=== PATIENT | female | born 1960 | race Caucasian/White ===

== ENCOUNTER 2017-07-05 23:57 | Inpatient (IN) | payer MEDICARE, OTHER ==
[2017-07-06] MEDS ORDERED: SODIUM CHLORIDE 0.9% 2,000 ML IV STA (00:17)
[2017-07-06] MEDS ORDERED: ONDANSETRON 4 MG/2 ML VIAL IVP STA (00:17)
--- NOTE | 2017-07-06 00:19 | ED ---
Nausea/Vomiting/Diarrhea HPI - General Chief complaint: Nausea/Vomiting/Diarrhea Stated complaint: Stomach Pain/Vomiting Time Seen by Provider: 07/06/17 00:09 Source: patient, RN notes reviewed Mode of arrival: ambulatory Limitations: no limitations - History of Present Illness Initial comments: This a 56-year-old female presents emergency Department chief complaint of nausea vomiting. Patient states started 24 hours ago. Patient states she cannot stop vomiting. She states she did have some lower abdominal pain but states it is resolved. Patient denies any dysuria, hematuria, diarrhea, constipation, fever, chills, back pain, chest pain or shortness breath. She states that she is having bilious vomiting at this time. She states her grandkids were sicker on it. Patient denies any congestion no cough, sore throat, ear pain. Patient has no headache no dizziness. - Related Data Home Medications Medication Instructions Recorded Confirmed Dextroamphetamine/Amphetamine 30 mg PO TID 06/22/15 06/22/15 [Adderall] Hydrocodone/Acetaminophen [[place] 1 each PO Q4H PRN 06/22/15 06/22/15 10-325] Allergies Allergy/AdvReac Type Severity Reaction Status Date / Time diazepam [From Valium] Allergy Unknown Verified 06/22/15 17:28 Review of Systems ROS Statement: Those systems with pertinent positive or pertinent negative responses have been documented in the HPI. ROS Other: All systems not noted in ROS Statement are negative. Past Medical History Past Medical History: No Reported History Additional Past Medical History / Comment(s): blood clot in shoulder History of Any Multi-Drug Resistant Organisms: None Reported Past Surgical History: No Surgical Hx Reported Past Psychological History: No Psychological Hx Reported Smoking Status: Current every day smoker Past Alcohol Use History: None Reported Past Drug Use History: None Reported General Exam Limitations: no limitations General appearance: alert, in no apparent distress Head exam: Present: atraumatic, normocephalic, normal inspection ENT exam: Present: mucous membranes dry Neck exam: Present: normal inspection. Absent: tenderness, meningismus, lymphadenopathy Respiratory exam: Present: normal lung sounds bilaterally. Absent: respiratory distress, wheezes, rales, rhonchi, stridor Cardiovascular Exam: Present: regular rate, normal rhythm, normal heart sounds. Absent: systolic murmur, diastolic murmur, rubs, gallop, clicks GI/Abdominal exam: Present: soft, tenderness (Moderate right inguinal tenderness ), normal bowel sounds, hernia. Absent: distended, guarding, rebound, rigid Back exam: Absent: CVA tenderness (R), CVA tenderness (L) Neurological exam: Present: alert, oriented X3, CN II-XII intact Skin exam: Present: warm, dry, intact, normal color. Absent: rash Course Vital Signs 07/06/17 00:04 Temperature 97.7 F Pulse Rate 82 Respiratory 18 Rate Blood Pressure 115/64 O2 Sat by Pulse 98 Oximetry Medical Decision Making - Lab Data Result diagrams: 07/06/17 00:30 07/06/17 00:30 Lab Results 07/06/17 07/06/17 07/06/17 Range/Units 00:30 00:30 00:30 WBC 16.9 H (3.8-10.6) k/uL RBC 5.64 H (3.80-5.40) m/uL Hgb 17.4 H (11.4-16.0) gm/dL Hct 51.3 H (34.0-46.0) % MCV 90.9 (80.0-100.0) fL MCH 30.9 (25.0-35.0) pg MCHC 34.0 (31.0-37.0) g/dL RDW 13.7 (11.5-15.5) % Plt Count 271 (150-450) k/uL Neutrophils % 88 % Lymphocytes % 6 % Monocytes % 4 % Eosinophils % 1 % Basophils % 1 % Neutrophils # 15.0 H (1.3-7.7) k/uL Lymphocytes # 1.1 (1.0-4.8) k/uL Monocytes # 0.6 (0-1.0) k/uL Eosinophils # 0.1 (0-0.7) k/uL Basophils # 0.1 (0-0.2) k/uL Sodium 139 (137-145) mmol/L Potassium 4.1 (3.5-5.1) mmol/L Chloride 98 (98-107) mmol/L Carbon Dioxide 29 (22-30) mmol/L Anion Gap 12 mmol/L BUN 22 H (7-17) mg/dL Creatinine 0.80 (0.52-1.04) mg/dL Est GFR (MDRD) Af Amer >60 (>60 ml/min/1.73 sqM) Est GFR (MDRD) Non-Af >60 (>60 ml/min/1.73 sqM) Glucose 156 H (74-99) mg/dL Calcium 10.6 H (8.4-10.2) mg/dL Total Bilirubin 0.7 (0.2-1.3) mg/dL AST 25 (14-36) U/L ALT 42 (9-52) U/L Alkaline Phosphatase 104 (38-126) U/L Total Protein 8.3 H (6.3-8.2) g/dL Albumin 4.9 (3.5-5.0) g/dL Amylase 41 (30-110) U/L Lipase 31 (23-300) U/L Urine Color Yellow Urine Appearance Cloudy H (Clear) Urine pH 5.5 (5.0-8.0) Ur Specific [place] 1.029 (1.001-1.035) Urine Protein 2+ H (Negative) Urine Glucose (UA) Negative (Negative) Urine Ketones Trace H (Negative) Urine Blood Moderate H (Negative) Urine Nitrite Negative (Negative) Urine Bilirubin 1+ H (Negative) Urine Urobilinogen 2.0 (<2.0) mg/dL Ur Leukocyte Esterase Trace H (Negative) Urine RBC 17 H (0-5) /hpf Urine WBC 6 H (0-5) /hpf Ur Squamous Epith Cells 26 H (0-4) /hpf Urine Bacteria Occasional H (None) /hpf Urine Mucus Few H (None) /hpf Disposition Clinical Impression: Right inguinal hernia, Small bowel obstruction Disposition: ADMITTED IP TO THIS [facility] Condition: Fair Referrals: Bob Alejo MD [Primary Care Provider] - 1-2 days
[2017-07-06 00:39] LABS: Basophils # (A) 0.1 k/uL (0-0.2); Basophils % (A) 1 %; CHCM 35.3; Eosinophils # (A) 0.1 k/uL (0-0.7); Eosinophils % (A) 1 %; HCT 51.3 % (34.0-46.0); HDW 2.31; HGB 17.4 gm/dL (11.4-16.0); Luc % (Auto) 1; Lymphocytes # (A) 1.1 k/uL (1.0-4.8); Lymphocytes % (A) 6 %; MCH 30.9 pg (25.0-35.0); MCV 90.9 fL (80.0-100.0); Mean Platelet Volume 8.8; Monocytes # (A) 0.6 k/uL (0-1.0); Monocytes % (A) 4 %; Neutrophils % (A) 88 %; RBC 5.64 m/uL (3.80-5.40); RDW 13.7 % (11.5-15.5); WBC 16.9 k/uL (3.8-10.6); WBC (Perox) 16.52
[2017-07-06 00:49] LABS: ALT 42 U/L (9-52); AST 25 U/L (14-36); Alkaline Phosphatase 104 U/L (38-126); Amylase 41 U/L (30-110); Anion Gap 12 mmol/L; Blood Urea Nitrogen 22 mg/dL (7-17); Calcium 10.6 mg/dL (8.4-10.2); Carbon Dioxide 29 mmol/L (22-30); Chloride 98 mmol/L (98-107); Glucose 156 mg/dL (74-99); Non-African American GFR(MDRD) >60 (>60 ml/min/1.73 sqM); Potassium 4.1 mmol/L (3.5-5.1); Sodium 139 mmol/L (137-145); Total Bilirubin 0.7 mg/dL (0.2-1.3); Total Protein 8.3 g/dL (6.3-8.2)
[2017-07-06] MEDS ORDERED: RX INFO: IV CONTRAST WAS GIVEN 1 EACH MISC MISCELLANE PRN (00:49)
[2017-07-06 00:51] LABS: Appearance,Urine Cloudy (Clear); Bacteria,Urine Occasional /hpf; Bilirubin,Urine 1+ (Negative); Glucose,Urine (UA) Negative (Negative); Ketones,Urine Trace (Negative); Leukocyte Esterase,Urine Trace (Negative); Mucus,Urine Few /hpf; Nitrite,Urine Negative (Negative); PH, Urine 5.5 (5.0-8.0); Particle Count 16900; Protein,Urine 2+ (Negative); RBC,Urine 17 /hpf (0-5); Specific Gravity,Urine 1.029 (1.001-1.035); Squamous Epithelial Cell,Urine 26 /hpf (0-4); UA Billing (MACRO vs. MICRO) MICRO; WBC,Urine 6 /hpf (0-5)
--- NOTE | 2017-07-06 01:16 | XR ---
EXAM: XR Abdomen Complete, 2 or More Views CLINICAL HISTORY: Pain TECHNIQUE: Frontal view of the abdomen/pelvis with upright view of the abdomen. COMPARISON: No relevant prior studies available. FINDINGS: Intraperitoneal space: No pneumatosis or free air. Gastrointestinal tract: There are air-fluid levels noted within the small bowel with a prominent small bowel loop noted within the left upper quadrant measuring up to 3.8 cm. Findings are concerning for either small bowel obstruction or ileus. Bones/joints: Unremarkable. IMPRESSION: There are air-fluid levels noted within the small bowel with a prominent small bowel loop noted within the left upper quadrant measuring up to 3.8 cm. Findings are concerning for either small bowel obstruction or ileus.
--- NOTE | 2017-07-06 01:39 | CT ---
EXAM: CT Abdomen and Pelvis With Intravenous Contrast CLINICAL HISTORY: Pain, vomiting and leukocytosis TECHNIQUE: Axial computed tomography images of the abdomen and pelvis with intravenous contrast. CTDI is 6.3, 6.2 mGy and DLP is 465.80 mGy-cm. This CT exam was performed using one or more of the following dose reduction techniques: automated exposure control, adjustment of the mA and/or kV according to patient size, and/or use of iterative reconstruction technique. COMPARISON: No relevant prior studies available. FINDINGS: Lower thorax: Tiny subpleural cysts are noted within the dependent right lower lobe, which is nonspecific. ABDOMEN: Liver: Unremarkable. Gallbladder and bile ducts: Unremarkable. Pancreas: Unremarkable. Spleen: Unremarkable. Adrenals: Unremarkable. Kidneys and ureters: Unremarkable. Stomach and bowel: Dilated loops of small bowel with transition point seen within a right inguinal canal hernia (3-74). Noninflamed colonic diverticulosis. Appendix: The appendix is unremarkable. PELVIS: Bladder: Unremarkable. Reproductive: Unremarkable as visualized. ABDOMEN and PELVIS: Intraperitoneal space: Small amount of free fluid within the pelvis. Bones/joints: Degenerative changes of the osseous structures. Anterolisthesis of L4 on L5, likely degenerative. No acute fracture. No dislocation. Soft tissues: See above. Vasculature: Vascular calcifications. Lymph nodes: Unremarkable. IMPRESSION: Dilated loops of small bowel with transition point seen within a right inguinal canal hernia (3-74). Findings are concerning for small bowel obstruction. No pneumatosis or free air.
[2017-07-06] MEDS ORDERED: NALOXONE 0.4 MG/ML 1 ML VIAL IV PRN (01:46)
[2017-07-06] MEDS ORDERED: HYDROmorphone 1 MG/ML 1 ML SYRINGE IVP STA (01:47)
[2017-07-06] MEDS: HYDROmorphone 1 MG/ML 1 ML SYRINGE IV PRN ×6 (03:16→23:00)
[2017-07-06] MEDS: SODIUM CHLORIDE 0.9% 1,000 ML IV SCH ×3 (05:14→20:13)
--- NOTE | 2017-07-06 07:24 | P.GSHP ---
History of Present Illness H&P Date: 07/06/17 Chief Complaint: Nausea and vomting for 36 hours Patient is a 56 year old female with a 36 hour history of nausea and vomiting. It started suddenly and has not stopped till presentation. SHe had previosuly noted a swelling in her groin as well that occasionally filled up and reduced int he past but is now quite tender. SHe has had associated crampy abominal pain that has resolved. No flatus or bowel movments. No history of abdominal surgery in the past - Constitutional Constitutional: Reports anorexia, Reports lethargy, Reports malaise - EENT Eyes: denies as per HPI - Cardiovascular Cardiovascular: Denies chest pain, Denies claudication, Denies decreased exercise tolerance - Respiratory Comment: known smoker Respiratory: Reports cough - Gastrointestinal Gastrointestinal: Reports as per HPI - Genitourinary (Female) Genitourinary: Denies dysuria, Denies hematuria - Musculoskeletal Musculoskeletal: Denies myalgias - Integumentary Integumentary: Denies pruritus, Denies rash - Endocrine Endocrine: Denies fatigue, Denies weight change Past Medical History Past Medical History: No Reported History Additional Past Medical History / Comment(s): blood clot in shoulder, adverse effect with valium caused seizures History of Any Multi-Drug Resistant Organisms: None Reported Past Surgical History: No Surgical Hx Reported Past Anesthesia/Blood Transfusion Reactions: No Reported Reaction Past Psychological History: No Psychological Hx Reported Smoking Status: Current every day smoker Past Alcohol Use History: None Reported Past Drug Use History: None Reported - Past Family History Father Family Medical History: No Reported History Mother Family Medical History: No Reported History Medications and Allergies Home Medications Medication Instructions Recorded Confirmed Type Dextroamphetamine/Amphetamine 30 mg PO TID 06/22/15 06/22/15 History [Adderall] Hydrocodone/Acetaminophen [[place] 1 each PO Q4H PRN 06/22/15 06/22/15 History 10-325] Allergies Allergy/AdvReac Type Severity Reaction Status Date / Time diazepam [From Valium] Allergy Unknown Verified 07/06/17 03:58 Surgical - Exam Vital Signs Temp Pulse Resp BP Pulse Ox 97.7 F 82 18 115/64 98 07/06/17 00:04 07/06/17 00:04 07/06/17 00:04 07/06/17 00:04 07/06/17 00:04 - General moderate distress - Eyes no icteric, no deviation - ENT normal pinna, normal nares - Respiratory normal expansion - Cardiovascular Rhythm: regular - Abdomen tender right inguinla region. Area was marked. , no peritonitis Abdomen: soft, non tender, no surgical scars, no wound - Integumentary no rash, no abnormal pigmentation - Neurologic no disoriented, no combative - Psychiatric oriented to time, oriented to person, oriented to place, speech is normal, memory intact Results - Labs 07/06/17 00:30 07/06/17 00:30 Abnormal Lab Results - Last 24 Hours (Table) 07/06/17 07/06/17 07/06/17 Range/Units 00:30 00:30 00:30 WBC 16.9 H (3.8-10.6) k/uL RBC 5.64 H (3.80-5.40) m/uL Hgb 17.4 H (11.4-16.0) gm/dL Hct 51.3 H (34.0-46.0) % Neutrophils # 15.0 H (1.3-7.7) k/uL BUN 22 H (7-17) mg/dL Glucose 156 H (74-99) mg/dL Calcium 10.6 H (8.4-10.2) mg/dL Total Protein 8.3 H (6.3-8.2) g/dL Urine Appearance Cloudy H (Clear) Urine Protein 2+ H (Negative) Urine Ketones Trace H (Negative) Urine Blood Moderate H (Negative) Urine Bilirubin 1+ H (Negative) Ur Leukocyte Esterase Trace H (Negative) Urine RBC 17 H (0-5) /hpf Urine WBC 6 H (0-5) /hpf Ur Squamous Epith Cells 26 H (0-4) /hpf Urine Bacteria Occasional H (None) /hpf Urine Mucus Few H (None) /hpf Diabetes panel 07/06/17 Range/Units 00:30 Sodium 139 (137-145) mmol/L Potassium 4.1 (3.5-5.1) mmol/L Chloride 98 (98-107) mmol/L Carbon Dioxide 29 (22-30) mmol/L BUN 22 H (7-17) mg/dL Creatinine 0.80 (0.52-1.04) mg/dL Glucose 156 H (74-99) mg/dL Calcium 10.6 H (8.4-10.2) mg/dL AST 25 (14-36) U/L ALT 42 (9-52) U/L Alkaline Phosphatase 104 (38-126) U/L Total Protein 8.3 H (6.3-8.2) g/dL Albumin 4.9 (3.5-5.0) g/dL Calcium panel 07/06/17 Range/Units 00:30 Calcium 10.6 H (8.4-10.2) mg/dL Albumin 4.9 (3.5-5.0) g/dL Pituitary panel 07/06/17 Range/Units 00:30 Sodium 139 (137-145) mmol/L Potassium 4.1 (3.5-5.1) mmol/L Chloride 98 (98-107) mmol/L Carbon Dioxide 29 (22-30) mmol/L BUN 22 H (7-17) mg/dL Creatinine 0.80 (0.52-1.04) mg/dL Glucose 156 H (74-99) mg/dL Calcium 10.6 H (8.4-10.2) mg/dL Adrenal panel 07/06/17 Range/Units 00:30 Sodium 139 (137-145) mmol/L Potassium 4.1 (3.5-5.1) mmol/L Chloride 98 (98-107) mmol/L Carbon Dioxide 29 (22-30) mmol/L BUN 22 H (7-17) mg/dL Creatinine 0.80 (0.52-1.04) mg/dL Glucose 156 H (74-99) mg/dL Calcium 10.6 H (8.4-10.2) mg/dL Total Bilirubin 0.7 (0.2-1.3) mg/dL AST 25 (14-36) U/L ALT 42 (9-52) U/L Alkaline Phosphatase 104 (38-126) U/L Total Protein 8.3 H (6.3-8.2) g/dL Albumin 4.9 (3.5-5.0) g/dL - Imaging CT scan - abdomen: report reviewed, image reviewed CT scan - pelvis: report reviewed, image reviewed (obstruction from the inguinla hernia) Assessment and Plan (1) Tobacco abuse Status: Acute (2) Right inguinal hernia Status: Acute (3) Small bowel obstruction Status: Acute Plan: Patient has higher than average risk due to smoking . I have explained that we need to do a groin exploration and possible diagnositc laparoscopy and possibel laparotomy with bowel resection possible ostomy creation. I have explained the aster and the oskar. she understands and is willing to proceed.
[2017-07-06] MEDS ORDERED: IV FLUID CONTINUATION 300 ML IV ONE (08:35)
[2017-07-06] MEDS: ONDANSETRON 4 MG/2 ML VIAL IVP PRN (09:02)
[2017-07-06] MEDS ORDERED: HEPARIN SODIUM,PORCINE 5,000 UNIT/ML 1 ML VIAL SQ ONE (09:38)
[2017-07-06] MEDS ORDERED: NEOSTIGMINE 1 MG/ML 10 ML VIAL ONE (09:40)
[2017-07-06] MEDS ORDERED: VECURONIUM 10 MG VIAL IV ONE (09:40)
[2017-07-06] MEDS ORDERED: PROPOFOL 10 MG/ML 20 ML VIAL IV ONE (09:40)
[2017-07-06] MEDS ORDERED: GLYCOPYRROLATE 0.2 MG/ML 2 ML VIAL ONE (09:40)
[2017-07-06] MEDS ORDERED: fentaNYL (PF) 50 MCG/ML 2 ML AMP ONE (09:40)
[2017-07-06] MEDS ORDERED: HYDROmorphone (PF) 1 MG/ML ONE (09:40)
[2017-07-06] MEDS ORDERED: SUCCINYLCHOLINE CHLORIDE 100 MG/5 ML SYR IV ONE (09:40)
[2017-07-06] MEDS ORDERED: LIDOCAINE 1% INJ 10MG/ML (20 ML MDV) ONE (09:40)
[2017-07-06] MEDS ORDERED: ePHEDrine SULFATE/0.9% NACL/PF 50 MG/5 ML SYRINGE IV ONE (09:40)
[2017-07-06] MEDS ORDERED: PHENYLEPHRINE-0.9% NACL SYG 1 MG/10 ML SYRINGE ONE (09:40)
[2017-07-06] MEDS ORDERED: SODIUM CHLORIDE 0.9% 50 ML with ceFAZolin 2,000 MG IV ONE ×2 (09:46)
[2017-07-06] MEDS ORDERED: BUPIVACAIN-EPI 0.5%-1:200,000 30 ML VIAL SQ ONE (10:15)
[2017-07-06] MEDS ORDERED: LACTATED RINGERS 1,000 ML IV ONE ×2 (10:16→11:13)
[2017-07-06] MEDS: HYDROmorphone 1 MG/ML 1 ML SYRINGE IVP ONE ×2 (12:04→12:15)
--- NOTE | 2017-07-06 12:17 | P.OP ---
Date of Procedure: 07/06/17 Preoperative Diagnosis: Bowel obstruction due to incarcerated inguinal hernia Postoperative Diagnosis: Strangulated femoral hernia with bowel obstruction Procedure(s) Performed: Right groin exploration with repari of femoral hernia Exporatroy laparotomy with bowel resection and anastamosis Implants: Anesthesia: CARLOTA Surgeon: Ramon Floyd Pathology: other Condition: stable Indications for Procedure: Operative Findings: Description of Procedure: Did with right groin pain and nausea and vomiting. Computed tomography scan revealed obstruction with consistent with incarcerated right inguinal hernia which was not reducible in the ER. Examination the abdomen was soft with the patient was complaining of severe nausea vomiting. She did not complain of any significant pain in the right groin unless she was examined. Her signs symptoms consistent with bowel obstruction secondary to incarcerated bowel. Abdomen WAS obtained. After placement of an injury on the floor the patient gave informed consent for the procedure. He was she was taken to the operating room placed in supine position given general anesthesia with endotracheal intubation. Funes catheter was placed. Appropriate timeout was called. The patient prepped and draped in the usual sterile surgical fashion. After infiltrating the groin with local anesthesia and incision was made with the help of a 10 blade and the skin and subcutaneous tissue using electrocautery encountering the hernia sac. The hernia sac was coming from underneath the inguinal ligament consistent with a femoral hernia. Blunt dissection was done around it to expose its neck. The neck was really tight and therefore the inguinal ligament was incised vertically and the contents reduced since the contents of looked dark and dusky decision was made to open the midline. After of washing out and placement of a sponge in that incision lower midline incision was made with 10 blade from the umbilicus down to the suprapubic region. It was deepened skin and subcutis tissue with the help of electrocautery down to the fascia which was incised and opened the length of the incision was opened and there was some fluid in the abdomen which was sucked dry. Small bowel was then run from the ligament of Treitz was noted to have small knuckle of bowel that looked necrotic, transient is a mesenteric border consistent with partial bowel resection ventilation within the femoral hernia. On this piece of bowel was resected with the help of MARC staplers and then a functional [id number] anastomosis created with a MARC and the TA 60. The entire staple line was reinforced and dunked with the help of 2-0 silk sutures. Hemostasis was secured. NG tube was palpated to be in the stomach and the appropriate position there were no other abnormalities within the abdomen remaining part of the small bowel was also run and there were no other abnormalities except proximal distention .Once this was done the abdomen was thoroughly irrigated sucked dry and the bowel returned to the abdominal cavity after which the lower midline incision was closed with the help of running single strand 0 PDS. The skin was then closed with the help of maxine. Attention was turned to the femoral hernia where a modified David's was done closing up the femoral canal and restoring anatomy. Subcutis tissue was closed with 2-0 Vicryl skin was closed with maxine. The midline incision was dressed with for vena dressing. Tegaderm and 4 x 4 placed in the right groin. Extremities procedure well there were no complications she was extubated and taken to recovery room in stable but critical condition. She will be in the ICU for the next 24-48 hours. Her NG tube and Funes catheter was left in place.
[2017-07-06 13:08] LABS: Glucose,Whole Blood 113 mg/dL (75-99)
--- NOTE | 2017-07-06 14:49 | P.CNPUL ---
History of Present Illness Consult date: 07/06/17 History of present illness: Patient is a 56 year old female with a 36 hour history of nausea and vomiting. It started suddenly and has not stopped till presentation. SHe had previosuly noted a swelling in her groin as well that occasionally filled up and reduced int he past but is now quite tender. SHe has had associated crampy abominal pain that has resolved. No flatus or bowel movments. No history of abdominal surgery in the past. Computed tomography scan of the abdomen showed obstruction consistent with incarcerated right inguinal hernia which was not reducible in the emergency department. The patient was seen by general surgery and the patient was taken to the operating room and she was found to have single related femoral hernia with bowel obstruction. The patient underwent right groin exploration with repair of the femoral hernia and expiratory laparotomy with bowel resection and primary anastomosis. Postop, the patient was sent into the intensive care unit for further evaluation. The patient was extubated in recovery but based on the surgeon's request the patient was brought in to the ICU for further monitoring. She has an NG tube in place. A Funes cath is also in place. Her white cell count on admission was 16.9. The patient's renal function is stable with a creatinine of 0.8 and a BUN of 22. Currently, the patient has a stable blood pressure on no pressors. Her pulse ox is around 95% 40s about 2 by nasal cannula. She is on no pressors. Review of Systems 12 point review of system was done and the positive findings are almost above history of present illness Past Medical History Past Medical History: No Reported History Additional Past Medical History / Comment(s): No Significant history History of Any Multi-Drug Resistant Organisms: None Reported Past Surgical History: No Surgical Hx Reported Past Anesthesia/Blood Transfusion Reactions: No Reported Reaction Past Psychological History: No Psychological Hx Reported Smoking Status: Current every day smoker Past Alcohol Use History: None Reported Past Drug Use History: None Reported - Past Family History Father Family Medical History: No Reported History Mother Family Medical History: No Reported History Medications and Allergies Home Medications Medication Instructions Recorded Confirmed Type Dextroamphetamine/Amphetamine 30 mg PO TID 06/22/15 07/06/17 History [Adderall] Hydrocodone/Acetaminophen [[place] 1 tab PO Q4H PRN 06/22/15 07/06/17 History 10-325] Allergies Allergy/AdvReac Type Severity Reaction Status Date / Time diazepam [From Valium] Allergy Unknown Verified 07/06/17 07:28 latex Allergy Rash/Hives Verified 07/06/17 09:21 Physical Exam Vitals: Vital Signs Temp Pulse Pulse Resp BP BP BP 07/06/17 12:45 98 18 145/67 07/06/17 12:30 98 14 142/74 07/06/17 12:15 77 14 143/69 07/06/17 12:00 79 16 149/76 07/06/17 11:52 100 F H 82 16 136/70 07/06/17 08:37 98.4 F 97 18 116/70 104/57 07/06/17 07:55 99.6 F 88 14 104/57 07/06/17 07:53 99.6 F 88 14 104/57 07/06/17 05:02 97.6 F 82 18 115/75 07/06/17 02:56 98.4 F 78 18 159/78 07/06/17 00:04 97.7 F 82 18 115/64 Pulse Ox 07/06/17 12:45 95 07/06/17 12:30 97 07/06/17 12:15 99 07/06/17 12:00 97 07/06/17 11:52 100 07/06/17 08:37 93 L 07/06/17 07:55 94 L 07/06/17 07:53 94 L 07/06/17 05:02 93 L 07/06/17 02:56 99 07/06/17 00:04 98 Intake and Output 07/05/17 07/06/17 07/06/17 22:59 06:59 14:59 Intake Total 300 2200 Output Total 150 550 Balance 150 1650 Intake: IV 2200 Intake, IV Titration 300 Amount Sodium Chloride 0.9% 1, 300 000 ml @ 100 mls/hr IV . Q10H [facility] Rx#:[id number] Output: Gastric Drainage 150 Urine 500 Estimated Blood Loss 50 Other: Weight 64.864 kg The patient appeared well nourished and normally developed. Vital signs as documented. Head exam is unremarkable. No scleral icterus or corneal arcus noted. Neck is without jugular venous distension, thyromegaly, or carotid bruits. Carotid upstrokes are brisk bilaterally. Lungs are clear to auscultation and percussion. Cardiac exam reveals the PMI to be normally sized and situated. Rhythm is regular. First and second heart sounds normal. No murmurs, rubs or gallops. Abdominal exam reveals that the surgical wound site over the mid abdomen is open and the wound VAC was applied. The wound in the right groin area is dry clean and intact. Bowel sounds are hypoactive. No direct tenderness. No rebound tenderness. No guarding. No distention. The surgical wound site is dry clean and intact. Extremities are nonedematous and both femoral and pedal pulses are normal. Results - Laboratory Findings CBC and BMP: 07/06/17 00:30 07/06/17 00:30 Abnormal lab findings: Abnormal Labs 07/06/17 07/06/17 07/06/17 00:30 00:30 00:30 WBC 16.9 H RBC 5.64 H Hgb 17.4 H Hct 51.3 H Neutrophils # 15.0 H BUN 22 H Glucose 156 H POC Glucose (mg/dL) Calcium 10.6 H Total Protein 8.3 H Urine Appearance Cloudy H Urine Protein 2+ H Urine Ketones Trace H Urine Blood Moderate H Urine Bilirubin 1+ H Ur Leukocyte Esterase Trace H Urine RBC 17 H Urine WBC 6 H Ur Squamous Epith Cells 26 H Urine Bacteria Occasional H Urine Mucus Few H 07/06/17 13:06 WBC RBC Hgb Hct Neutrophils # BUN Glucose POC Glucose (mg/dL) 113 H Calcium Total Protein Urine Appearance Urine Protein Urine Ketones Urine Blood Urine Bilirubin Ur Leukocyte Esterase Urine RBC Urine WBC Ur Squamous Epith Cells Urine Bacteria Urine Mucus Assessment and Plan Plan: Assessment 1 incarcerated femoral hernia with bowel obstruction, patient is status post expiratory laparotomy resection and primary anastomosis and the patient had a right groin exploration with repair of a femoral hernia and currently she is postop day #0. The patient was successfully weaned off the mechanical ventilator and the patient was extubated in recovery currently on 42 oxygen nasal cannula. Hemodynamically stable 2 abdominal pain secondary to above 3 leukocytosis secondary to above Plan Continue IV fluids. Dilaudid for pain control. Wound VAC has been applied to the anterior abdominal wall. Management of wound VAC per surgery. Provide the patient incentive spirometer. Repeat electrolytes and labs in a.m. Keep NG tube in place. We'll continue to follow. Heparin subcu for DVT prophylaxis. We'll continue to follow.
[2017-07-06] MEDS ORDERED: ceFAZolin 1,000 MG in DEXTROSE/WATER 1 50ML.BAG IVPB SCH (16:00)
[2017-07-06] MEDS: metroNIDAZOLE-NS PMX 500 MG in SALINE 1 100ML.BAG IVPB SCH ×2 (18:41→23:52)
--- NOTE | 2017-07-06 19:04 | P.CON ---
Consult Note - . Consult date: 07/06/17 Assessment/Plan:: Reason for consult: Medical management Consult date: 07/06/2017 Requesting physician: Dr. Shan Floyd Chief complaint: Nausea vomiting diarrhea History of present illness CONSULTATION: 56-year-old female patient of Dr. Tata Alejo with chronic stable medical conditions of GERD, hypertension, osteoarthritis presented with nausea and vomiting that started about 24 hours ago and has not been able to stop since. Denies any dysuria or hematuria diarrhea constipation fever or chills. States her grandchildren had been sick previously. She noted some swelling in her groin that filled up from time to time and reduced in the past but now is quite tender. Diagnostic imaging revealed incarcerated right inguinal hernia, not reducible in the emergency department. Seen by general surgery and taken to the OR. REVIEW OF SYSTEM: GEN.: [None] EYES: [None] HEENT: [None] NECK: [None] RESPIRATORY: [None] CARDIOVASCULAR: [None] GASTROINTESTINAL: [None] GENITOURINARY: [None] MUSCULOSKELETAL: [None] LYMPHATICS: [None] HEMATOLOGICAL: [None] PSYCHIATRY: [None] NEUROLOGICAL: [None] Past Medical History Past Medical History: No Reported History Additional Past Medical History / Comment(s): No Significant history History of Any Multi-Drug Resistant Organisms: None Reported Past Surgical History: No Surgical Hx Reported Past Anesthesia/Blood Transfusion Reactions: No Reported Reaction Past Psychological History: No Psychological Hx Reported Smoking Status: Current every day smoker Past Alcohol Use History: None Reported Past Drug Use History: None Reported Past surgical history: None reported Social history: Current every day smoker, no alcohol no drug use history Family history HOME MEDICATIONS: ALLERGIES: Diazepam, latex PHYSICAL EXAM: VITAL SIGNS: [Temperature 98.2, pulse 66, respirations 18, blood pressure 106/55 , oxygen saturation 91% on 4 L. BMI noted] GENERAL: [Average built, lying in bed appears a bit anxious]. EYES: [Pupils equal. Conjunctiva real]l. HEENT: [External appearance of nose and ears normal, oral cavity grossly normal] . NECK: [JVD not raised; masses not palpable]. HEART: [First and second heart sounds are normal; no edema]. LUNGS:[ Respiratory rate normal; clear to auscultation]. ABDOMEN: [Soft, tender, abdominal binder in place, liver spleen not palpable, no masses palpable]. LYMPHATICS: [No lymph nodes palpable in the axilla and neck]. PSYCH: [Alert and oriented x3; mood and affect real]l. NEUROLOGICAL: [Cranial nerves grossly intact; no facial asymmetry, power and sensation grossly intact]. INVESTIGATION: 07/06/17 00:30 07/06/17 00:30 Labs: Abnormal Lab Results - Last 24 Hours (Table) 07/06/17 07/06/17 07/06/17 Range/Units 00:30 00:30 00:30 WBC 16.9 H (3.8-10.6) k/uL RBC 5.64 H (3.80-5.40) m/uL Hgb 17.4 H (11.4-16.0) gm/dL Hct 51.3 H (34.0-46.0) % Neutrophils # 15.0 H (1.3-7.7) k/uL BUN 22 H (7-17) mg/dL Glucose 156 H (74-99) mg/dL POC Glucose (mg/dL) (75-99) mg/dL Calcium 10.6 H (8.4-10.2) mg/dL Total Protein 8.3 H (6.3-8.2) g/dL Urine Appearance Cloudy H (Clear) Urine Protein 2+ H (Negative) Urine Ketones Trace H (Negative) Urine Blood Moderate H (Negative) Urine Bilirubin 1+ H (Negative) Ur Leukocyte Esterase Trace H (Negative) Urine RBC 17 H (0-5) /hpf Urine WBC 6 H (0-5) /hpf Ur Squamous Epith Cells 26 H (0-4) /hpf Urine Bacteria Occasional H (None) /hpf Urine Mucus Few H (None) /hpf 07/06/17 Range/Units 13:06 WBC (3.8-10.6) k/uL RBC (3.80-5.40) m/uL Hgb (11.4-16.0) gm/dL Hct (34.0-46.0) % Neutrophils # (1.3-7.7) k/uL BUN (7-17) mg/dL Glucose (74-99) mg/dL POC Glucose (mg/dL) 113 H (75-99) mg/dL Calcium (8.4-10.2) mg/dL Total Protein (6.3-8.2) g/dL Urine Appearance (Clear) Urine Protein (Negative) Urine Ketones (Negative) Urine Blood (Negative) Urine Bilirubin (Negative) Ur Leukocyte Esterase (Negative) Urine RBC (0-5) /hpf Urine WBC (0-5) /hpf Ur Squamous Epith Cells (0-4) /hpf Urine Bacteria (None) /hpf Urine Mucus (None) /hpf ASSESSMENT: -Right femoral hernia with acute small bowel obstruction status post right groin exploration with repair of femoral hernia, exploratory laparotomy with bowel resection and anastomosis -Severe Sepsis with out septic shock -Leukocytosis likely due to sepsis and surgical intervention -Dehydration secondary to intractable nausea vomiting -Current everyday smoker -Osteoarthritis of multiple joints bilateral PLAN: Patient to remain in the ICU for the next 24-48 hours secondary to her current septic condition. Continue IV fluids, wound VAC will be managed by surgery. BOX LOADER STATEMENT: Patient was seen and examined by nurse practitioner Mala Ulrich in all elements of the case discussed with attending Dr. Burton.
[2017-07-06] MEDS: PIPERACILLIN-TAZOBACTAM 3.375 GM in DEXTROSE/WATER 1 50ML.BAG IVPB SCH (20:08)
[2017-07-06] MEDS: NICOTINE 21MG/24HR PATCH TRANSDERM SCH ×2 (20:12)
[2017-07-06] MEDS: HEPARIN SODIUM,PORCINE 5,000 UNIT/ML 1 ML VIAL SQ SCH (20:32)
[2017-07-07] MEDS: HYDROmorphone 1 MG/ML 1 ML SYRINGE IV PRN ×8 (01:42→23:04)
[2017-07-07] MEDS: PIPERACILLIN-TAZOBACTAM 3.375 GM in DEXTROSE/WATER 1 50ML.BAG IVPB SCH ×3 (03:16→20:30)
[2017-07-07 05:28] LABS: CH 31.9; CHCM 34.4; HCT 40.5 % (34.0-46.0); HDW 2.34; Immature Gran Flag Moderate; MCH 30.8 pg (25.0-35.0); MCHC 33.1 g/dL (31.0-37.0); RBC 4.35 m/uL (3.80-5.40); RDW 13.5 % (11.5-15.5); WBC 4.1 k/uL (3.8-10.6); WBC (Perox) 3.84
[2017-07-07 05:36] LABS: HGB 13.4 gm/dL (11.4-16.0)
[2017-07-07 05:38] LABS: ALT 28 U/L (9-52); AST 23 U/L (14-36); Alkaline Phosphatase 66 U/L (38-126); Anion Gap 7 mmol/L; Blood Urea Nitrogen 15 mg/dL (7-17); Calcium 8.6 mg/dL (8.4-10.2); Carbon Dioxide 27 mmol/L (22-30); Chloride 102 mmol/L (98-107); Glucose 102 mg/dL (74-99); Magnesium 1.7 mg/dL (1.6-2.3); Non-African American GFR(MDRD) >60 (>60 ml/min/1.73 sqM); Phosphorous 2.9 mg/dL (2.5-4.5); Potassium 3.7 mmol/L (3.5-5.1); Sodium 136 mmol/L (137-145); Total Bilirubin 0.7 mg/dL (0.2-1.3); Total Protein 5.5 g/dL (6.3-8.2)
[2017-07-07 05:57] LABS: Add Differential Manual Differential
[2017-07-07 06:01] LABS: Band Neutrophils % 19 %; Manual Review Performed; Nucleated Red Blood Cells 0 /100 WBC (0-0); Total Cells Counted 200
[2017-07-07] MEDS ORDERED: Magnesium Replacement Protocol 1 EACH MISC MISCELLANE PRN (06:02)
[2017-07-07] MEDS ORDERED: Potassium Replacement Protocol 1 EACH MISC MISCELLANE PRN (06:02)
[2017-07-07] MEDS: MAGNESIUM SULFATE-D5W PMX 1 GM in DEXTROSE/WATER 1 100ML.BAG IVPB SCH ×2 (08:36→10:03)
[2017-07-07] MEDS: POTASSIUM CHLORIDE 10 MEQ, LIDOCAINE 2% INJ 10 MG in SODIUM CHLORIDE 0.9% 100 ML IV SCH ×2 (08:36→10:03)
[2017-07-07] MEDS: NICOTINE 21MG/24HR PATCH TRANSDERM SCH (08:37)
[2017-07-07] MEDS: SODIUM CHLORIDE 0.9% 1,000 ML IV SCH ×2 (08:37→17:46)
[2017-07-07] MEDS: metroNIDAZOLE-NS PMX 500 MG in SALINE 1 100ML.BAG IVPB SCH ×3 (08:43→23:14)
[2017-07-07] MEDS: HEPARIN SODIUM,PORCINE 5,000 UNIT/ML 1 ML VIAL SQ SCH ×2 (08:43→20:31)
--- NOTE | 2017-07-07 12:34 | CONS ---
CONSULTATION Date of Consultation: PRESENTING COMPLAINT: Abdominal pain. CONSULTATION: This patient admitted with 2 days of progressive pain in the right groin, nausea, vomiting, no fever. Patient was found to have acute right femoral hernia with obstruction. Taken to surgery. Dr. Floyd carried out exploration with repair of the femoral hernia with bowel resection and anastomosis. Patient is in the ICU with an NG tube in place. A daughter is at the bedside. PHYSICAL EXAMINATION: Temperature 101.6, pulse 104, respiration 22, blood pressure 146/77, pulse ox 90% on 2 L. Average build, lying in bed, tired-appearing. HEENT: NG tube in place. NECK: JVD not raised, mass not palpable. RESPIRATORY: Effort normal. LUNGS: Fair entry. CARDIOVASCULAR: First and second sounds, no edema. ABDOMEN: Dressing in place. Decreased breath sounds, tender. PSYCH: Alert and oriented x3. INVESTIGATIONS: White count 16.9, hemoglobin 17.4. CT scan of the abdomen and pelvis, a few dilated loops of bowel but transition point in the right inguinal canal hernia. ASSESSMENT: 1. Acute femoral hernia with small bowel obstruction, followed by surgical repair of the hernia and partial bowel resection. 2. Sepsis picture from above. 3. Dehydration with elevated BUN. 4. Chronic nicotine dependence. The patient is a cigarette smoker. 5. Gastroesophageal reflux disease. PLAN: Patient is on IV Ancef and subcutaneous heparin, DVT prophylaxis, IV fluids. Patient advised against smoking. Will be given a nicotine patch. Care was discussed with the patient. Will change the IV cefazolin to Zosyn for broader coverage and also add Flagyl because of intraabdominal surgery: MMODL / IJN: [id number] /
--- NOTE | 2017-07-07 13:52 | P.PN ---
<Danna Wilsonmickie Pedersen - Last Filed: 07/07/17 13:52> Subjective Principal diagnosis: 56-year-old female being seen in the intensive care unit awake alert chief complaint this morning "fully catheter bothersome causes more pain than the surgery" patient is postop on July 06 right groin exploration with repair of the femoral hernia. with exploratory laparotomy with bowel resection and anastomosis. Done for strangulated femoral hernia with a bowel obstruction . hospital course 56-year-old who presented with a chief complaint of having persistent nausea vomiting with noted swelling in the right groin. Patient stated in the past been able to reduce the hernia on her own. Patient additionally states she was developing cramping abdominal pain. Patient presented to the emergency room with the above-mentioned symptoms. Patient was seen by surgical service and did elect to proceed with a surgical intervention per dr pham service postprocedure patient was admitted to the intensive care unit for close monitoring Objective - Vital Signs Vital signs: Vital Signs Temp 98.7 F 07/07/17 07:00 Pulse 92 07/07/17 10:00 Resp 16 07/07/17 10:00 BP 113/66 07/07/17 10:00 Pulse Ox 91 L 07/07/17 10:00 Intake & Output 07/06/17 07/07/17 07/07/17 18:59 06:59 18:59 Intake Total 2700 1487.5 900 Output Total 1010 2520 440 Balance 1690 -1032.5 460 Weight 66.6 kg Intake: IV 2700 1487.5 500 Piperacillin-Tazobactam 3 87.5 .375 gm In Dextrose/Water 1 50ml.bag @ 12.5 mls/hr IVPB Q8H [facility] Rx#: [id number] Sodium Chloride 0.9% 1, 500 1200 400 000 ml @ 100 mls/hr IV . Q10H [facility] Rx#:[id number] metroNIDAZOLE-NS PMX 500 200 100 mg In Saline 1 100ml.bag @ 100 mls/hr IVPB Q8HR [facility] Rx#:[id number] Intake, IV Titration 400 Amount Magnesium Sulfate-D5w Pmx 200 1 gm In Dextrose/Water 1 100ml.bag @ 100 mls/hr IVPB Q1H [facility] Rx#: [id number] Potassium Chloride 10 meq 200 Lidocaine 2% Inj 10 mg In Sodium Chloride 0.9% 100 ml @ 100 mls/hr IV Q1HR [facility] Rx#:[id number] Output: Gastric Drainage 400 Urine 960 2120 440 Estimated Blood Loss 50 Other: Voiding Method Indwelling Catheter Indwelling Catheter Indwelling Catheter - Exam physical exam 56-year-old female being seen sitting up in bed chief complaint "catheter my bladder is very annoying hurts worse than my surgery" oriented 3 cooperative Lungs posterior diminished at the bases otherwise adequate air movement Heart S1-S2 audible regular denying chest pain no murmur Abdomen nasal gastric tube in place the wound VAC prevea in place soft not distended surgical tenderness few hypoactive bowel tones indwelling Funes catheter in place Extremities Venodyne's on to the bilateral lower extremities no edema noted - Labs CBC & Chem 7: 07/07/17 05:01 07/07/17 05:01 Labs: Abnormal Lab Results - Last 24 Hours (Table) 07/06/17 07/07/17 07/07/17 Range/Units 13:06 05:01 05:01 Lymphocytes # (Manual) 0.45 L (1.0-4.8) k/uL Sodium 136 L (137-145) mmol/L Glucose 102 H (74-99) mg/dL POC Glucose (mg/dL) 113 H (75-99) mg/dL Total Protein 5.5 L (6.3-8.2) g/dL Albumin 3.0 L (3.5-5.0) g/dL Assessment and Plan Plan: Impression Present on admission persistent intractable nausea vomiting with abdominal pain with increased swelling right groin suspect due to bowel obstruction due to incarcerated inguinal hernia Post op July 06 right groin exploration with repair of femoral hernia, exploratory laparotomy with bowel resection and anastomosis due to a strangulated femoral hernia with bowel obstruction Current every day smoker Osteoarthritis of multiple joints bilaterally Present on admission dehydration suspect due to intractable nausea vomiting poor oral intake Present on admission leukocytosis Plan Continue postop surgical care Continue ICU management per calcine furnace loader Encourage the use of the incentive spirometer Continue pain control with the use of epidural dilaudid Repeat labs in the morning Continue wound VAC prevea DVT and GI prophylaxis Further surgical recommendations pending clinical course The above impression and plan of care have been discussed and directed by signing physician. Luann Wilson nurse practitioner acting as scribe for signing physician. <Giselle Rojo N - Last Filed: 07/13/17 16:49> Objective - Vital Signs Vital signs: Vital Signs Temp 99.0 F 07/13/17 15:00 Pulse 95 07/13/17 15:00 Resp 16 07/13/17 15:00 BP 106/65 07/13/17 15:00 Pulse Ox 93 L 07/13/17 15:00 Intake & Output 07/12/17 07/13/17 07/13/17 18:59 06:59 18:59 Weight 66.6 kg Other: Voiding Method Bedside Commode # Voids 1 1 2 # Bowel Movements 2 1 3 - Labs CBC & Chem 7: 07/13/17 08:15 07/13/17 08:15 Labs: Abnormal Lab Results - Last 24 Hours (Table) 07/13/17 07/13/17 Range/Units 08:15 08:15 Lymphocytes # 0.9 L (1.0-4.8) k/uL Sodium 132 L (137-145) mmol/L AST 53 H (14-36) U/L Total Protein 5.1 L (6.3-8.2) g/dL Albumin 2.6 L (3.5-5.0) g/dL Assessment and Plan (1) Incarcerated femoral hernia Status: Acute (2) Small bowel obstruction Status: Acute
[2017-07-07] MEDS: FAMOTIDINE 20 MG/2 ML VIAL IV SCH ×2 (14:10→20:30)
[2017-07-07] MEDS ORDERED: IPRATROPIUM-ALBUTEROL 3 ML NEB INHALATION PRN (17:31)
--- NOTE | 2017-07-07 17:35 | P.PN ---
Subjective Patient is a 56 year old female with a 36 hour history of nausea and vomiting. It started suddenly and has not stopped till presentation. SHe had previosuly noted a swelling in her groin as well that occasionally filled up and reduced int he past but is now quite tender. SHe has had associated crampy abominal pain that has resolved. No flatus or bowel movments. No history of abdominal surgery in the past. Computed tomography scan of the abdomen showed obstruction consistent with incarcerated right inguinal hernia which was not reducible in the emergency department. The patient was seen by general surgery and the patient was taken to the operating room and she was found to have single related femoral hernia with bowel obstruction. The patient underwent right groin exploration with repair of the femoral hernia and expiratory laparotomy with bowel resection and primary anastomosis. Postop, the patient was sent into the intensive care unit for further evaluation. The patient was extubated in recovery but based on the surgeon's request the patient was brought in to the ICU for further monitoring. She has an NG tube in place. A Funes cath is also in place. Her white cell count on admission was 16.9. The patient's renal function is stable with a creatinine of 0.8 and a BUN of 22. Currently, the patient has a stable blood pressure on no pressors. Her pulse ox is around 95% 40s about 2 by nasal cannula. She is on no pressors. The patient is seen again today 07/07/2017 in follow-up in the intensive care unit. She is status post right groin exploration with repair of a femoral hernia along with the exploratory laparotomy with bowel resection and anastomosis secondary to incarcerated inguinal hernia. This is postoperative day #1. She is currently resting quite comfortably in bed. She is awake and alert in no acute distress. She is maintaining good O2 saturations in the low 90s on 4 L/m. Nasal cannula. She's been hemodynamically stable. Afebrile. She has been maintained on antibiotics in the form of Zosyn along with metronidazole. Objective - Vital Signs Vital signs: Vital Signs Temp 98.7 F 07/07/17 12:00 Pulse 87 07/07/17 13:00 Resp 16 07/07/17 13:00 BP 105/61 07/07/17 13:00 Pulse Ox 92 L 07/07/17 13:00 Intake & Output 07/06/17 07/07/17 07/07/17 18:59 06:59 18:59 Intake Total 2700 1487.5 1200 Output Total 1010 2520 630 Balance 1690 -1032.5 570 Weight 66.6 kg Intake: IV 2700 1487.5 800 Piperacillin-Tazobactam 3 87.5 .375 gm In Dextrose/Water 1 50ml.bag @ 12.5 mls/hr IVPB Q8H [facility] Rx#: [id number] Sodium Chloride 0.9% 1, 500 1200 700 000 ml @ 100 mls/hr IV . Q10H [facility] Rx#:[id number] metroNIDAZOLE-NS PMX 500 200 100 mg In Saline 1 100ml.bag @ 100 mls/hr IVPB Q8HR [facility] Rx#:[id number] Intake, IV Titration 400 Amount Magnesium Sulfate-D5w Pmx 200 1 gm In Dextrose/Water 1 100ml.bag @ 100 mls/hr IVPB Q1H [facility] Rx#: [id number] Potassium Chloride 10 meq 200 Lidocaine 2% Inj 10 mg In Sodium Chloride 0.9% 100 ml @ 100 mls/hr IV Q1HR [facility] Rx#:[id number] Output: Gastric Drainage 400 Urine 960 2120 630 Estimated Blood Loss 50 Other: Voiding Method Indwelling Catheter Indwelling Catheter Indwelling Catheter - Exam The patient appeared well nourished and normally developed. Vital signs as documented. Head exam is unremarkable. No scleral icterus or corneal arcus noted. Neck is without jugular venous distension, thyromegaly, or carotid bruits. Carotid upstrokes are brisk bilaterally. Lungs are clear to auscultation and percussion. Cardiac exam reveals the PMI to be normally sized and situated. Rhythm is regular. First and second heart sounds normal. No murmurs, rubs or gallops. Abdominal exam reveals that the surgical wound site over the mid abdomen is open and the wound VAC was applied. The wound in the right groin area is dry clean and intact. Bowel sounds are hypoactive. No direct tenderness. No rebound tenderness. No guarding. No distention. The surgical wound site is dry clean and intact. Extremities are nonedematous and both femoral and pedal pulses are normal. - Labs CBC & Chem 7: 07/07/17 05:01 07/07/17 05:01 Labs: Abnormal Lab Results - Last 24 Hours (Table) 07/07/17 07/07/17 Range/Units 05:01 05:01 Lymphocytes # (Manual) 0.45 L (1.0-4.8) k/uL Sodium 136 L (137-145) mmol/L Glucose 102 H (74-99) mg/dL Total Protein 5.5 L (6.3-8.2) g/dL Albumin 3.0 L (3.5-5.0) g/dL Assessment and Plan Plan: Assessment 1 incarcerated femoral hernia with bowel obstruction, patient is status post expiratory laparotomy resection and primary anastomosis and the patient had a right groin exploration with repair of a femoral hernia and currently she is postop day #1. 2 abdominal pain secondary to above 3 leukocytosis secondary to above, recovered. 4 Chronic and ongoing tobacco dependence. Plan The patient was seen and evaluated by Dr. Copeland. She is stable from the pulmonary and critical care standpoint. We will go ahead and initiate bronchodilators based on her smoking history. She is again encouraged regarding the importance of complete smoking cessation. NicoDerm patch is in place. Continue with heparin subcutaneous for DVT prophylaxis. Pepcid for GI prophylaxis. Wound VAC remains in place. She could be transferred out of the ICU to this surgical floor later today. We will increase her activity as tolerated. We'll continue to follow.
--- NOTE | 2017-07-07 18:23 | P.PN ---
<Mala Ulrich - Last Filed: 07/07/17 18:09> Progress Note - Text DATE OF SERVICE: 07/07/2017 PRESENTING COMPLAINT: Abdominal pain HISTORY OF PRESENT ILLNESS: 56-year-old female admitted with 2 days of progressive pain in the right groin nausea vomiting no fever. Found to have a right femoral hernia with obstruction , taken to surgery by Dr. Floyd. Patient is now status post exploration with repair of the femoral hernia with bowel resection and anastomosis. Admitted to the ICU because the patient appeared septic however remained afebrile and vital signs were normal through the night. INTERVAL HISTORY: 07/07/2017: Patient lying in bed complaining of abdominal pain tenderness practically to the suprapubic area asking for Funes catheter to be removed. abdominal binder in place wound VAC in place, NG tube to low intermittent suction and is having a lot of output secondary to patient eating a lot of ice chips. Remains nothing by mouth, currently on bedrest, passing some gas. REVIEW OF SYSTEMS: Done for constitutional ,cardiovascular, GI, pulmonary with relevant findings as above. CURRENT MEDICATIONS DuoNeb's, Pepcid, heparin, Dilaudid, metronidazole, Zosyn. PHYSICAL EXAM VITAL SIGNS: Temperature 98.7, pulse 91, respirations 15, blood pressure 105/61, oxygen saturation 92% on 4 L. GENERAL APPEARANCE: Lying in bed, not in distress. EYES: Pupils equal. Conjunctiva normal. NECK: JVD not raised. Mass not palpable. RESPIRATORY: Respiratory effort normal. Lungs clear to auscultation. CARDIOVASCULAR: First and second sounds normal. No edema. ABDOMEN: Soft. Liver and spleen not palpable. No tenderness. No mass palpable. PSYCHIATRY: Alert and oriented x3. Mood and affect normal. INVESTIGATIONS: CBC unremarkable, sodium 136, checks noted. ASSESSMENT: -Acute femoral hernia with small bowel obstruction, followed by surgical repair of the hernia and partial bowel resection -Acute Sepsis from recent surgery. -Dehydration with elevated BUN, -Chronic nicotine dependence. Patient is a cigarette smoker. -Gastroesophageal reflux disease PLAN: Continue patient on metronidazole and Zosyn, IV fluids, maintain NG tube , wound VAC and Funes per surgical preference. May transfer out of the ICU in the next 24 hours. We'll continue to follow. CELL PLASTERER statement: Patient was seen and examined by nurse practitioner Mala Ulrich and all elements of the case discussed with attending Dr. Burton <Renny Burton - Last Filed: 07/07/17 21:47> Progress Note - Text Attending note. Date of service-07/07/2017 This patient was seen and examined by me . Discussed the patient with my nurse practitioner Ms. Ulrich. Patient in the ICU. NG tube in place. Patient nothing by mouth. Patient hasn' t passed any flatus On examination: Lungs-decreased breath sounds, ENT-NG tube, abdomen-wound VAC in place, T-max 101.6 at 3 PM yesterday Investigations: White count 4.1 Assessment and plan: Acute femoral hernia with small bowel obstruction causing sepsis followed by surgical repair and partial bowel resection. Continue with IV Zosyn, IV Flagyl IV fluids. Care was discussed with the patient
[2017-07-07] MEDS: IPRATROPIUM-ALBUTEROL 3 ML NEB INHALATION SCH (20:14)
[2017-07-08] MEDS: HYDROmorphone 1 MG/ML 1 ML SYRINGE IV PRN ×7 (02:32→22:01)
[2017-07-08] MEDS: PIPERACILLIN-TAZOBACTAM 3.375 GM in DEXTROSE/WATER 1 50ML.BAG IVPB SCH ×3 (04:23→19:52)
[2017-07-08] MEDS: SODIUM CHLORIDE 0.9% 1,000 ML IV SCH ×2 (04:24→15:37)
[2017-07-08] MEDS: IPRATROPIUM-ALBUTEROL 3 ML NEB INHALATION SCH ×4 (07:32→20:54)
[2017-07-08 08:06] LABS: ALT 33 U/L (9-52); AST 22 U/L (14-36); Alkaline Phosphatase 70 U/L (38-126); Anion Gap 7 mmol/L; Blood Urea Nitrogen 18 mg/dL (7-17); Calcium 8.8 mg/dL (8.4-10.2); Carbon Dioxide 30 mmol/L (22-30); Chloride 100 mmol/L (98-107); Glucose 96 mg/dL (74-99); Magnesium 2.2 mg/dL (1.6-2.3); Non-African American GFR(MDRD) >60 (>60 ml/min/1.73 sqM); Sodium 137 mmol/L (137-145); Total Bilirubin 0.6 mg/dL (0.2-1.3); Total Protein 5.5 g/dL (6.3-8.2)
[2017-07-08 08:07] LABS: Basophils % (A) 0 %; CH 30.4; Eosinophils # (A) 0.1 k/uL (0-0.7); Eosinophils % (A) 3 %; HCT 38.1 % (34.0-46.0); HDW 2.37; HGB 12.9 gm/dL (11.4-16.0); Luc # (Auto) 0.12; Luc % (Auto) 3; Lymphocytes # (A) 0.5 k/uL (1.0-4.8); Lymphocytes % (A) 13 %; MCH 31.2 pg (25.0-35.0); MCHC 33.8 g/dL (31.0-37.0); MCV 92.4 fL (80.0-100.0); Mean Platelet Volume 8.6; Monocytes # (A) 0.3 k/uL (0-1.0); Monocytes % (A) 8 %; Neutrophils % (A) 73 %; RBC 4.12 m/uL (3.80-5.40); RDW 12.4 % (11.5-15.5); WBC (Perox) 3.71
[2017-07-08] MEDS: HEPARIN SODIUM,PORCINE 5,000 UNIT/ML 1 ML VIAL SQ SCH ×2 (09:08→22:01)
[2017-07-08] MEDS: NICOTINE 21MG/24HR PATCH TRANSDERM SCH (09:08)
[2017-07-08] MEDS: FAMOTIDINE 20 MG/2 ML VIAL IV SCH ×2 (09:09→22:01)
[2017-07-08] MEDS: metroNIDAZOLE-NS PMX 500 MG in SALINE 1 100ML.BAG IVPB SCH ×2 (09:13→15:30)
--- NOTE | 2017-07-08 13:23 | P.PN ---
Subjective Patient is a 56 year old female with a 36 hour history of nausea and vomiting. It started suddenly and has not stopped till presentation. SHe had previosuly noted a swelling in her groin as well that occasionally filled up and reduced int he past but is now quite tender. SHe has had associated crampy abominal pain that has resolved. No flatus or bowel movments. No history of abdominal surgery in the past. Computed tomography scan of the abdomen showed obstruction consistent with incarcerated right inguinal hernia which was not reducible in the emergency department. The patient was seen by general surgery and the patient was taken to the operating room and she was found to have single related femoral hernia with bowel obstruction. The patient underwent right groin exploration with repair of the femoral hernia and expiratory laparotomy with bowel resection and primary anastomosis. Postop, the patient was sent into the intensive care unit for further evaluation. The patient was extubated in recovery but based on the surgeon's request the patient was brought in to the ICU for further monitoring. She has an NG tube in place. A Funes cath is also in place. Her white cell count on admission was 16.9. The patient's renal function is stable with a creatinine of 0.8 and a BUN of 22. Currently, the patient has a stable blood pressure on no pressors. Her pulse ox is around 95% 40s about 2 by nasal cannula. She is on no pressors. The patient is seen again today 07/07/2017 in follow-up in the intensive care unit. She is status post right groin exploration with repair of a femoral hernia along with the exploratory laparotomy with bowel resection and anastomosis secondary to incarcerated inguinal hernia. This is postoperative day #1. She is currently resting quite comfortably in bed. She is awake and alert in no acute distress. She is maintaining good O2 saturations in the low 90s on 4 L/m. Nasal cannula. She's been hemodynamically stable. Afebrile. She has been maintained on antibiotics in the form of Zosyn along with metronidazole. The patient is seen again today 07/08/2017 in follow-up on the regular medical floor. She is currently resting fairly comfortably in bed. She states her pain is well controlled. This is postoperative day #2. Abdominal wound VAC is in place. NG tube remains in place. She is maintaining O2 saturations in the mid to upper 90s on 4 L/m per nasal cannula. She's been afebrile. Working well with her incentive spirometer. Objective - Vital Signs Vital signs: Vital Signs Temp 96.9 F L 07/08/17 07:00 Pulse 96 07/08/17 11:45 Resp 20 07/08/17 08:00 BP 106/56 07/08/17 07:00 Pulse Ox 91 L 07/08/17 07:00 Intake & Output 07/07/17 07/08/17 07/08/17 18:59 06:59 18:59 Intake Total 1200 Output Total 630 1250 700 Balance 570 -1250 -700 Intake: IV 800 Sodium Chloride 0.9% 1, 700 000 ml @ 100 mls/hr IV . Q10H [facility] Rx#:[id number] metroNIDAZOLE-NS PMX 500 100 mg In Saline 1 100ml.bag @ 100 mls/hr IVPB Q8HR [facility] Rx#:[id number] Intake, IV Titration 400 Amount Magnesium Sulfate-D5w Pmx 200 1 gm In Dextrose/Water 1 100ml.bag @ 100 mls/hr IVPB Q1H [facility] Rx#: [id number] Potassium Chloride 10 meq 200 Lidocaine 2% Inj 10 mg In Sodium Chloride 0.9% 100 ml @ 100 mls/hr IV Q1HR [facility] Rx#:[id number] Output: Gastric Drainage 700 Urine 630 1250 Other: Voiding Method Indwelling Catheter Indwelling Catheter Indwelling Catheter - Exam The patient appeared well nourished and normally developed. Vital signs as documented. Head exam is unremarkable. No scleral icterus or corneal arcus noted. Neck is without jugular venous distension, thyromegaly, or carotid bruits. Carotid upstrokes are brisk bilaterally. Lungs are clear to auscultation and percussion. Cardiac exam reveals the PMI to be normally sized and situated. Rhythm is regular. First and second heart sounds normal. No murmurs, rubs or gallops. Abdominal exam reveals that the surgical wound site over the mid abdomen is open and the wound VAC was applied. The wound in the right groin area is dry clean and intact. Bowel sounds are hypoactive. No direct tenderness. No rebound tenderness. No guarding. No distention. The surgical wound site is dry clean and intact. Extremities are nonedematous and both femoral and pedal pulses are normal. - Labs CBC & Chem 7: 07/08/17 07:03 07/08/17 07:03 Labs: Abnormal Lab Results - Last 24 Hours (Table) 07/08/17 07/08/17 Range/Units 07:03 07:03 Lymphocytes # 0.5 L (1.0-4.8) k/uL BUN 18 H (7-17) mg/dL Total Protein 5.5 L (6.3-8.2) g/dL Albumin 2.9 L (3.5-5.0) g/dL Assessment and Plan Plan: Assessment 1 incarcerated femoral hernia with bowel obstruction, patient is status post expiratory laparotomy resection and primary anastomosis and the patient had a right groin exploration with repair of a femoral hernia and currently she is postop day #1. 2 abdominal pain secondary to above 3 leukocytosis secondary to above, recovered. 4 Chronic and ongoing tobacco dependence. Plan The patient was seen and evaluated by Dr. Copeland. We will continue bronchodilators based on her smoking history. She is again encouraged regarding the importance of complete smoking cessation. NicoDerm patch is in place. Continue with heparin subcutaneous for DVT prophylaxis. Pepcid for GI prophylaxis. Wound VAC remains in place. We've again encourage increased use the incentive spirometer and cough and deep breathing exercises. We will increase her activity as tolerated. We'll continue to follow.
--- NOTE | 2017-07-08 16:30 | P.PN ---
<Mala Ulrich - Last Filed: 07/08/17 16:40> Progress Note - Text DATE OF SERVICE: 07/08/2017 PRESENTING COMPLAINT: Abdominal pain HISTORY OF PRESENT ILLNESS: 56-year-old female admitted with 2 days of progressive pain in the right groin nausea vomiting no fever. Found to have a right femoral hernia with obstruction , taken to surgery by Dr. Floyd. Patient is now status post exploration with repair of the femoral hernia with bowel resection and anastomosis. Admitted to the ICU because the patient appeared septic however remained afebrile and vital signs were normal through the night. INTERVAL HISTORY: 07/08/2017: Patient lying in bed, no acute distress noted. Remains nothing by mouth. NG tube in place. Funes catheter in place. Patient wants Funes catheter out begging to have it taken out. Deferred decision to remove Funes to surgery. Ambulatory with assistance and is eager and willing to get up. No BM yet. 07/07/2017: Patient lying in bed complaining of abdominal pain tenderness practically to the suprapubic area asking for Funes catheter to be removed. abdominal binder in place wound VAC in place, NG tube to low intermittent suction and is having a lot of output secondary to patient eating a lot of ice chips. Remains nothing by mouth, currently on bedrest, passing some gas. REVIEW OF SYSTEMS: Done for constitutional ,cardiovascular, GI, pulmonary with relevant findings as above. CURRENT MEDICATIONS DuoNeb's, Pepcid, heparin, Dilaudid, metronidazole, Zosyn. PHYSICAL EXAM VITAL SIGNS: Temperature 98.0, pulse 96, respirations 20, blood pressure 108/64, oxygen saturation 93% on 2 L GENERAL APPEARANCE: Lying in bed, not in distress. EYES: Pupils equal. Conjunctiva normal. NECK: JVD not raised. Mass not palpable. RESPIRATORY: Respiratory effort normal. Lungs clear to auscultation. CARDIOVASCULAR: First and second sounds normal. No edema. ABDOMEN: Soft. Liver and spleen not palpable. No tenderness. No mass palpable abdominal binder in place, midline incision with wound VAC area INTEGUMENT: Midline incision covered with occlusive dressing and wound VAC attachment. Right groin with a dressing, PSYCHIATRY: Alert and oriented x3. Mood and affect normal. INVESTIGATIONS: CBC unremarkable, BUN 18, Accu-Cheks noted ASSESSMENT: -Acute femoral hernia with small bowel obstruction, causing sepsis followed by surgical repair of the hernia and partial bowel resection -Acute Sepsis from recent surgery. -Dehydration with elevated BUN, -Chronic nicotine dependence. Patient is a cigarette smoker. -Gastroesophageal reflux disease PLAN: Continue patient on metronidazole and Zosyn, IV fluids, maintain NG tube , wound VAC and Funes per surgical preference. His invasive lines may be DC'd by surgery tomorrow. We'll continue to follow closely. Plan of care discussed the patient the bedside she is in agreement. WASH BARREL LEADER statement: Patient was seen and examined by nurse practitioner Mala Ulrich and all elements of the case discussed with attending Dr. Burton <Renny Burton - Last Filed: 07/08/17 21:56> Progress Note - Text Attending note. Date of service-07/08/2017 This patient was seen and examined by me . Discussed the patient with my nurse practitioner Ms. Ulrich. NG tube is out. Patient nothing by mouth. Wound VAC in place. Up in the hallway. On examination: Abdomen-tender, wound VAC in place. Lungs-clear Investigations: White count 4, hemoglobin 12.9 Assessment and plan: Improving. Encouraged to ambulate. Continue on IV Zosyn and Flagyl. An IV fluids.
--- NOTE | 2017-07-08 21:09 | P.PN ---
Subjective Principal diagnosis: Incarcerated femoral hernia The patient is status post repair of incarcerated femoral hernia. She reports flatus. No reports of nausea or vomiting. Her pain is well-controlled. Objective - Vital Signs Vital signs: Vital Signs Temp 98.0 F 07/08/17 14:41 Pulse 96 07/08/17 14:41 Resp 20 07/08/17 08:00 BP 108/64 07/08/17 14:41 Pulse Ox 93 L 07/08/17 14:41 Intake & Output 07/07/17 07/08/17 07/08/17 18:59 06:59 18:59 Intake Total 1200 Output Total 630 1250 700 Balance 570 -1250 -700 Intake: IV 800 Sodium Chloride 0.9% 1, 700 000 ml @ 100 mls/hr IV . Q10H [facility] Rx#:[id number] metroNIDAZOLE-NS PMX 500 100 mg In Saline 1 100ml.bag @ 100 mls/hr IVPB Q8HR [facility] Rx#:[id number] Intake, IV Titration 400 Amount Magnesium Sulfate-D5w Pmx 200 1 gm In Dextrose/Water 1 100ml.bag @ 100 mls/hr IVPB Q1H [facility] Rx#: [id number] Potassium Chloride 10 meq 200 Lidocaine 2% Inj 10 mg In Sodium Chloride 0.9% 100 ml @ 100 mls/hr IV Q1HR [facility] Rx#:[id number] Output: Gastric Drainage 700 Urine 630 1250 Other: Voiding Method Indwelling Catheter Indwelling Catheter Indwelling Catheter - Exam GENERAL: Well developed and in no acute distress. Pleasant. HEENT: No sclera icterus. Extraocular movements grossly intact. Moist buccal mucosa. Head is atraumatic, normocephalic. Hears conversational speech. No nasal drainage. Nasogastric tube drainage consistent with bilious aspirate. CHEST: Non-labored respirations and equal bilateral excursions. CARDIOVASCULAR: Regular rate and rhythm. Palpable 2+ radial pulses. ABDOMEN: Soft, nontender. Nondistended. Dressing clean, dry, and intact. MUSCULOSKELETAL: No clubbing, cyanosis or edema. NEUROLOGIC: No focal or lateralizing signs. PSYCH: Appropriate affect. Alert and oriented to person, place and time. SKIN: Good skin turgor. Will perfused. - Labs CBC & Chem 7: 07/08/17 07:03 07/08/17 07:03 Labs: Abnormal Lab Results - Last 24 Hours (Table) 07/08/17 07/08/17 Range/Units 07:03 07:03 Lymphocytes # 0.5 L (1.0-4.8) k/uL BUN 18 H (7-17) mg/dL Total Protein 5.5 L (6.3-8.2) g/dL Albumin 2.9 L (3.5-5.0) g/dL Assessment and Plan (1) Incarcerated femoral hernia Status: Acute (2) Small bowel obstruction Status: Acute Plan: 1. May remove nasogastric tube as she is passing flatus. 2. Remove Funes catheter. 3. Continue with nothing by mouth except ice chips.
[2017-07-09] MEDS: metroNIDAZOLE-NS PMX 500 MG in SALINE 1 100ML.BAG IVPB SCH ×3 (00:42→16:57)
[2017-07-09] MEDS: HYDROmorphone 1 MG/ML 1 ML SYRINGE IV PRN ×7 (00:42→22:21)
[2017-07-09] MEDS: SODIUM CHLORIDE 0.9% 1,000 ML IV SCH ×2 (00:47→08:07)
[2017-07-09] MEDS: PIPERACILLIN-TAZOBACTAM 3.375 GM in DEXTROSE/WATER 1 50ML.BAG IVPB SCH ×3 (03:50→18:15)
[2017-07-09] MEDS: ONDANSETRON 4 MG/2 ML VIAL IVP PRN ×2 (03:57→17:05)
[2017-07-09] MEDS: IPRATROPIUM-ALBUTEROL 3 ML NEB INHALATION SCH ×4 (07:53→20:44)
[2017-07-09] MEDS: FAMOTIDINE 20 MG/2 ML VIAL IV SCH ×2 (08:07→20:24)
[2017-07-09] MEDS: HEPARIN SODIUM,PORCINE 5,000 UNIT/ML 1 ML VIAL SQ SCH ×2 (08:07→20:24)
[2017-07-09] MEDS: NICOTINE 21MG/24HR PATCH TRANSDERM SCH (08:08)
[2017-07-09 08:51] LABS: Basophils % (A) 0 %; CH 31.5; CHCM 33.9; Eosinophils # (A) 0.1 k/uL (0-0.7); Eosinophils % (A) 1 %; HCT 36.5 % (34.0-46.0); HDW 2.44; HGB 12.1 gm/dL (11.4-16.0); Luc # (Auto) 0.08; Luc % (Auto) 2; Lymphocytes # (A) 0.8 k/uL (1.0-4.8); Lymphocytes % (A) 15 %; MCH 31.1 pg (25.0-35.0); MCHC 33.3 g/dL (31.0-37.0); MCV 93.5 fL (80.0-100.0); Mean Platelet Volume 8.7; Monocytes # (A) 0.4 k/uL (0-1.0); Monocytes % (A) 7 %; Neutrophils # (A) 3.9 k/uL (1.3-7.7); Neutrophils % (A) 75 %; RDW 12.8 % (11.5-15.5); WBC 5.2 k/uL (3.8-10.6); WBC (Perox) 5.34
[2017-07-09 09:46] LABS: ALT 26 U/L (9-52); AST 18 U/L (14-36); Alkaline Phosphatase 64 U/L (38-126); Anion Gap 7 mmol/L; Blood Urea Nitrogen 14 mg/dL (7-17); Calcium 8.2 mg/dL (8.4-10.2); Carbon Dioxide 29 mmol/L (22-30); Chloride 102 mmol/L (98-107); Glucose 121 mg/dL (74-99); Non-African American GFR(MDRD) >60 (>60 ml/min/1.73 sqM); Potassium 3.7 mmol/L (3.5-5.1); Sodium 138 mmol/L (137-145); Total Bilirubin 0.4 mg/dL (0.2-1.3); Total Protein 5.3 g/dL (6.3-8.2)
--- NOTE | 2017-07-09 11:15 | P.PN ---
Subjective Principal diagnosis: Incarcerated femoral hernia The patient is status post repair of incarcerated femoral hernia. She had a bowel movement yesterday. She denies any increased abdominal distention. Per discussion with nursing, patient drank Pepsi and then had abdominal pain now resolved. She is ambulating. She reports minimal flatus. No nausea at this time. Objective - Vital Signs Vital signs: Vital Signs Temp 98.1 F 07/09/17 07:00 Pulse 92 07/09/17 08:09 Resp 16 07/09/17 08:00 BP 133/82 07/09/17 07:00 Pulse Ox 94 L 07/09/17 07:00 Intake & Output 07/08/17 07/09/17 07/09/17 18:59 06:59 18:59 Output Total 1200 Balance -1200 Output: Gastric Drainage 700 Urine 500 Uretheral (Funes) 500 Other: Voiding Method Indwelling Catheter Indwelling Catheter # Voids 2 1 # Bowel Movements 1 - Exam GENERAL: Well developed and in no acute distress. Pleasant. HEENT: No sclera icterus. Extraocular movements grossly intact. Moist buccal mucosa. Head is atraumatic, normocephalic. Hears conversational speech. No nasal drainage. Nasogastric tube drainage consistent with bilious aspirate. CHEST: Non-labored respirations and equal bilateral excursions. CARDIOVASCULAR: Regular rate and rhythm. Palpable 2+ radial pulses. ABDOMEN: Soft, nontender. Nondistended. Dressing clean, dry, and intact. MUSCULOSKELETAL: No clubbing, cyanosis or edema. NEUROLOGIC: No focal or lateralizing signs. PSYCH: Appropriate affect. Alert and oriented to person, place and time. - Labs CBC & Chem 7: 07/09/17 08:15 07/09/17 08:15 Labs: Abnormal Lab Results - Last 24 Hours (Table) 07/09/17 07/09/17 Range/Units 08:15 08:15 Lymphocytes # 0.8 L (1.0-4.8) k/uL Glucose 121 H (74-99) mg/dL Calcium 8.2 L (8.4-10.2) mg/dL Total Protein 5.3 L (6.3-8.2) g/dL Albumin 2.8 L (3.5-5.0) g/dL Assessment and Plan (1) Incarcerated femoral hernia Status: Acute (2) Small bowel obstruction Status: Acute Plan: 1. Advance to ice chips and popsicles. 2. Will use Toradol for pain control. 3. Hold advancing diet until bowel function has resumed.
[2017-07-09] MEDS: 0.9% NACL WITH KCL 20 MEQ/L 1,000 ML IV SCH (12:16)
[2017-07-09] MEDS: KETOROLAC 30 MG/ML 1 ML VIAL IVP SCH ×2 (12:17→13:40)
--- NOTE | 2017-07-09 16:24 | P.PN ---
Subjective Patient is a 56 year old female with a 36 hour history of nausea and vomiting. It started suddenly and has not stopped till presentation. SHe had previosuly noted a swelling in her groin as well that occasionally filled up and reduced int he past but is now quite tender. SHe has had associated crampy abominal pain that has resolved. No flatus or bowel movments. No history of abdominal surgery in the past. Computed tomography scan of the abdomen showed obstruction consistent with incarcerated right inguinal hernia which was not reducible in the emergency department. The patient was seen by general surgery and the patient was taken to the operating room and she was found to have single related femoral hernia with bowel obstruction. The patient underwent right groin exploration with repair of the femoral hernia and expiratory laparotomy with bowel resection and primary anastomosis. Postop, the patient was sent into the intensive care unit for further evaluation. The patient was extubated in recovery but based on the surgeon's request the patient was brought in to the ICU for further monitoring. She has an NG tube in place. A Funes cath is also in place. Her white cell count on admission was 16.9. The patient's renal function is stable with a creatinine of 0.8 and a BUN of 22. Currently, the patient has a stable blood pressure on no pressors. Her pulse ox is around 95% 40s about 2 by nasal cannula. She is on no pressors. The patient is seen again today 07/07/2017 in follow-up in the intensive care unit. She is status post right groin exploration with repair of a femoral hernia along with the exploratory laparotomy with bowel resection and anastomosis secondary to incarcerated inguinal hernia. This is postoperative day #1. She is currently resting quite comfortably in bed. She is awake and alert in no acute distress. She is maintaining good O2 saturations in the low 90s on 4 L/m. Nasal cannula. She's been hemodynamically stable. Afebrile. She has been maintained on antibiotics in the form of Zosyn along with metronidazole. The patient is seen again today 07/08/2017 in follow-up on the regular medical floor. She is currently resting fairly comfortably in bed. She states her pain is well controlled. This is postoperative day #2. Abdominal wound VAC is in place. NG tube remains in place. She is maintaining O2 saturations in the mid to upper 90s on 4 L/m per nasal cannula. She's been afebrile. Working well with her incentive spirometer. On 07/09/2017 the patient is postop day #3. She is doing well. The abdominal wound VAC is in place. NG tube has been removed. No abdominal distention. Surgical wound sites are all dry clean and intact. She will be drinking some liquids. She is ambulating. She voices minimal amount of flatus. No fever or chills. No other complaints otherwise for now. The white cell count is up To 5.2. Objective - Vital Signs Vital signs: Vital Signs Temp 97.9 F 07/09/17 14:22 Pulse 84 07/09/17 16:02 Resp 18 07/09/17 15:27 BP 146/73 07/09/17 14:22 Pulse Ox 92 L 07/09/17 14:22 Intake & Output 07/08/17 07/09/17 07/09/17 18:59 06:59 18:59 Output Total 1200 Balance -1200 Output: Gastric Drainage 700 Urine 500 Uretheral (Funes) 500 Other: Voiding Method Indwelling Catheter Indwelling Catheter # Voids 2 1 # Bowel Movements 1 - Exam The patient appeared well nourished and normally developed. Vital signs as documented. Head exam is unremarkable. No scleral icterus or corneal arcus noted. Neck is without jugular venous distension, thyromegaly, or carotid bruits. Carotid upstrokes are brisk bilaterally. Lungs are clear to auscultation and percussion. Cardiac exam reveals the PMI to be normally sized and situated. Rhythm is regular. First and second heart sounds normal. No murmurs, rubs or gallops. Abdominal exam revealed diminished bowel sounds. Surgical wound sites are all dry clean and intact. Bowel sounds are hypoactive. No direct tenderness. No rebound tenderness. No guarding. Extremities are nonedematous and both femoral and pedal pulses are normal. - Labs CBC & Chem 7: 07/09/17 08:15 07/09/17 08:15 Labs: Abnormal Lab Results - Last 24 Hours (Table) 07/09/17 07/09/17 Range/Units 08:15 08:15 Lymphocytes # 0.8 L (1.0-4.8) k/uL Glucose 121 H (74-99) mg/dL Calcium 8.2 L (8.4-10.2) mg/dL Total Protein 5.3 L (6.3-8.2) g/dL Albumin 2.8 L (3.5-5.0) g/dL Assessment and Plan Plan: Assessment 1 incarcerated femoral hernia with bowel obstruction, patient is status post expiratory laparotomy resection and primary anastomosis and the patient had a right groin exploration with repair of a femoral hernia and currently she is postop day #3. NG tube has been removed. The patient is passing some flatus. Wound VAC is in place. Surgical wound sites of dry clean and intact. 2 abdominal pain secondary to above, improving 3 leukocytosis secondary to above, improved Plan Advance diet as tolerated. Pain control per surgery. Ablate in the hallway. Incentive spirometer. Pulmonary critical care we'll sign off the case.
--- NOTE | 2017-07-09 20:14 | P.PN ---
<Mala Ulrich - Last Filed: 07/09/17 19:58> Progress Note - Text DATE OF SERVICE: 07/09/2017 PRESENTING COMPLAINT: Abdominal pain HISTORY OF PRESENT ILLNESS: 56-year-old female admitted with 2 days of progressive pain in the right groin nausea vomiting no fever. Found to have a right femoral hernia with obstruction , taken to surgery by Dr. Floyd. Patient is now status post exploration with repair of the femoral hernia with bowel resection and anastomosis. Admitted to the ICU because the patient appeared septic however remained afebrile and vital signs were normal through the night. INTERVAL HISTORY: 07/09/2017: Patient lying in bed, appears comfortable. Continues to be nothing by mouth, patient family member brought patient carbonated beverage yesterday evening and patient had significant abdominal pain as a result. Patient also educated on pain medication as she has been taking her Dilaudid every 3 hours as it has been ordered. Wound VAC remains in place abdominal binder also in place patient ambulatory in the hallway, passing gas no BM. 07/08/2017: Patient lying in bed, no acute distress noted. Remains nothing by mouth. NG tube in place. Funes catheter in place. Patient wants Funes catheter out begging to have it taken out. Deferred decision to remove Funes to surgery. Ambulatory with assistance and is eager and willing to get up. No BM yet. 07/07/2017: Patient lying in bed complaining of abdominal pain tenderness practically to the suprapubic area asking for Funes catheter to be removed. abdominal binder in place wound VAC in place, NG tube to low intermittent suction and is having a lot of output secondary to patient eating a lot of ice chips. Remains nothing by mouth, currently on bedrest, passing some gas. REVIEW OF SYSTEMS: Done for constitutional ,cardiovascular, GI, pulmonary with relevant findings as above. CURRENT MEDICATIONS DuoNeb's, Pepcid, heparin, Dilaudid, metronidazole, Zosyn. PHYSICAL EXAM VITAL SIGNS: Temperature 98.1, pulse 88, respiratory rate 16, blood pressure 133/82, oxygen saturation 94% on room air. GENERAL APPEARANCE: Lying in bed, not in distress. EYES: Pupils equal. Conjunctiva normal. NECK: JVD not raised. Mass not palpable. RESPIRATORY: Respiratory effort normal. Lungs clear to auscultation. CARDIOVASCULAR: First and second sounds normal. No edema. ABDOMEN: Soft. Liver and spleen not palpable. No tenderness. No mass palpable abdominal binder in place, midline incision with wound VAC area INTEGUMENT: Midline incision covered with occlusive dressing and wound VAC attachment. Right groin with a dressing, PSYCHIATRY: Alert and oriented x3. Mood and affect normal. INVESTIGATIONS: CBC unremarkable, BMP unremarkable, Accu-Cheks noted ASSESSMENT: -Acute femoral hernia with small bowel obstruction, causing sepsis followed by surgical repair of the hernia and partial bowel resection improving -Dehydration with elevated BUN, -Chronic nicotine dependence. Patient is a cigarette smoker. -Gastroesophageal reflux disease PLAN: Continue patient on metronidazole and Zosyn, IV fluids, wound VAC per surgical preference. Diet may be advanced by surgery tomorrow if patient either has a bowel movement or passes gas. We'll continue to follow closely. Plan of care discussed the patient the bedside she is in agreement. INFUSION THERAPY NURSE statement: Patient was seen and examined by nurse practitioner Mala Ulrich and all elements of the case discussed with attending Dr. Burton <Renny Burton - Last Filed: 07/09/17 20:23> Progress Note - Text Attending note. Date of service-07/09/2017 This patient was seen and examined by me . Discussed the patient with my nurse practitioner Ms. Ulrich. Patient remains to be nothing by mouth with ice chips. . Has been out of bed. Wound VAC in place. On examination: Abdomen soft some tenderness. Wound VAC in place. Bowel sounds present. Lungs -clear Investigations: White count 5.2, potassium 3.7 Assessment and plan: Status post femoral-femoral hernia repair. Continue with IV fluids. Diet be advanced per surgery. On IV Flagyl and Zosyn.
[2017-07-10] MEDS: metroNIDAZOLE-NS PMX 500 MG in SALINE 1 100ML.BAG IVPB SCH ×4 (00:45→23:31)
[2017-07-10] MEDS: HYDROmorphone 1 MG/ML 1 ML SYRINGE IV PRN ×6 (02:09→22:09)
[2017-07-10] MEDS: 0.9% NACL WITH KCL 20 MEQ/L 1,000 ML IV SCH ×3 (02:12→20:49)
[2017-07-10] MEDS: PIPERACILLIN-TAZOBACTAM 3.375 GM in DEXTROSE/WATER 1 50ML.BAG IVPB SCH ×3 (02:17→18:39)
[2017-07-10] MEDS: IPRATROPIUM-ALBUTEROL 3 ML NEB INHALATION SCH ×4 (07:26→20:32)
[2017-07-10 08:22] LABS: Basophils % (A) 0 %; CH 31.3; CHCM 33.8; Eosinophils # (A) 0.1 k/uL (0-0.7); Eosinophils % (A) 2 %; HCT 38.1 % (34.0-46.0); HDW 2.48; HGB 12.9 gm/dL (11.4-16.0); Luc # (Auto) 0.15; Luc % (Auto) 2; Lymphocytes # (A) 1.1 k/uL (1.0-4.8); Lymphocytes % (A) 14 %; MCH 31.5 pg (25.0-35.0); MCHC 33.8 g/dL (31.0-37.0); MCV 93.2 fL (80.0-100.0); Mean Platelet Volume 8.6; Monocytes # (A) 0.4 k/uL (0-1.0); Monocytes % (A) 6 %; Neutrophils # (A) 5.7 k/uL (1.3-7.7); Neutrophils % (A) 76 %; RBC 4.09 m/uL (3.80-5.40); RDW 12.9 % (11.5-15.5); WBC 7.5 k/uL (3.8-10.6); WBC (Perox) 7.76
[2017-07-10] MEDS: FAMOTIDINE 20 MG/2 ML VIAL IV SCH ×2 (08:29→20:44)
[2017-07-10] MEDS: HEPARIN SODIUM,PORCINE 5,000 UNIT/ML 1 ML VIAL SQ SCH ×2 (08:29→20:44)
[2017-07-10] MEDS: NICOTINE 21MG/24HR PATCH TRANSDERM SCH (08:29)
[2017-07-10 08:41] LABS: ALT 30 U/L (9-52); AST 18 U/L (14-36); Alkaline Phosphatase 64 U/L (38-126); Anion Gap 8 mmol/L; Blood Urea Nitrogen 10 mg/dL (7-17); Calcium 8.7 mg/dL (8.4-10.2); Carbon Dioxide 28 mmol/L (22-30); Chloride 101 mmol/L (98-107); Glucose 89 mg/dL (74-99); Non-African American GFR(MDRD) >60 (>60 ml/min/1.73 sqM); Potassium 4.2 mmol/L (3.5-5.1); Sodium 137 mmol/L (137-145); Total Bilirubin 0.4 mg/dL (0.2-1.3); Total Protein 5.3 g/dL (6.3-8.2)
--- NOTE | 2017-07-10 12:51 | P.PN ---
Subjective Principal diagnosis: Incarcerated femoral hernia The patient is status post repair of incarcerated femoral hernia. She is in walking in the hallways at the time of my evaluation. She came to bed. Upon discussion with nursing, patient states chronic [place] 10 pain meds at home. Patient reports inability to take ibuprofen, Aleve, or Toradol that causes seizures and doesn't work. She also reports chronic headaches for which [place] tendons is only of benefit. No reports of recent evaluation by therapist. Objective - Vital Signs Vital signs: Vital Signs Temp 97.9 F 07/10/17 07:00 Pulse 69 07/10/17 11:19 Resp 16 07/10/17 08:00 BP 117/75 07/10/17 07:00 Pulse Ox 94 L 07/10/17 07:05 Intake & Output 07/09/17 07/10/17 07/10/17 18:59 06:59 18:59 Intake Total 200 Balance 200 Intake: Oral 200 Other: Voiding Method Bedside Commode Bedside Commode # Voids 1 4 - Exam GENERAL: Well developed and in no acute distress. HEENT: No sclera icterus. Extraocular movements grossly intact. Moist buccal mucosa. Head is atraumatic, normocephalic. Hears conversational speech. No nasal drainage. Nasogastric tube drainage consistent with bilious aspirate. CHEST: Non-labored respirations and equal bilateral excursions. CARDIOVASCULAR: Regular rate and rhythm. Palpable 2+ radial pulses. ABDOMEN: Soft. Dressing clean, dry, and intact. No peritoneal signs. MUSCULOSKELETAL: No clubbing, cyanosis or edema. NEUROLOGIC: No focal or lateralizing signs. PSYCH: Alert and oriented to person, place and time. - Labs CBC & Chem 7: 07/10/17 07:51 07/10/17 07:51 Labs: Abnormal Lab Results - Last 24 Hours (Table) 07/10/17 Range/Units 07:51 Creatinine 0.50 L (0.52-1.04) mg/dL Total Protein 5.3 L (6.3-8.2) g/dL Albumin 2.8 L (3.5-5.0) g/dL Assessment and Plan (1) Incarcerated femoral hernia Status: Acute (2) Small bowel obstruction Status: Acute Plan: 1. I have advanced diet to full liquid diet as she is passing flatus and had bowel movements. 2. She reports chronic tension headaches which is unusual to require [place] 10 including Adderall for relief. I discussed with her given the multiple social stressors including narcotic use, evaluation by psychiatry for underlying anti- depressive therapy may be of benefit to help with her current psychological needs. 3. May also benefit from pain management referral once full evaluation by psychiatrist is complete. I am rounding on behalf of Dr. Floyd.
--- NOTE | 2017-07-10 18:44 | XR ---
Exam: Abdomen 2 view. Upright and supine views the abdomen were obtained. HISTORY: Small bowel resection on July 06, 2017. Abdominal pain. COMPARISON: July 06, 2017. FINDINGS: There are several dilated loops of small bowel with air-fluid levels noted. These findings have progr essed since the previous study. There is a plastic device overlying the mid abdomen which could be a wound VAC. Multiple skin maxine are noted across the midline and in the right lower quadrant overlyi ng the right femur. Several foci of suspected free intraperitoneal air identified which are likely po stoperative. IMPRESSION: Several dilated loops of small bowel are noted in the mid abdomen measuring up to 5 cm in diameter wi th air-fluid levels. Findings are consistent with a small bowel obstruction. Although, postoperative ileus could have this appearance.
[2017-07-10] MEDS: MELATONIN 1 MG TAB PO SCH (20:44)
--- NOTE | 2017-07-10 21:52 | PN ---
PROGRESS NOTE DATE OF SERVICE: 07/10/17. PRESENTING COMPLAINT: Abdominal surgery. INTERVAL HISTORY: Patient is status post abdominal surgery. Has been on ice chips. has been out of bed. No chest pain. No shortness of breath. Daughter is at the bedside. Patient earlier felt very nauseated after getting and Jell-O this morning. REVIEW OF SYSTEMS: Done for constitutional, cardiovascular, GI, pulmonary relevant findings as above. CURRENT MEDICATIONS: Reviewed that include IV Flagyl, IV Zosyn and IV fluids. EXAMINATION: Temp is 98.7, pulse 83, respiratory rate 18, blood pressure 130/71, pulse ox 92% on room air. In general, lying in bed, tired appearing. Eyes pupils equal. Conjunctivae normal. Neck jugular venous distention not raised. Mass not palpable. Respiratory effort normal. Lungs fair air entry. Cardiovascular first and second sounds normal. No edema. Abdomen slightly distended. Mild tenderness. Bowel sounds could not be heard. Liver and spleen not palpable. Psychiatry alert and oriented times three. Mood and affect normal. INVESTIGATIONS: White count 7.5, hemoglobin 12.9, potassium 4.2, albumin 2.8. ASSESSMENT: 1. Acute femoral hernia with small bowel obstruction causing sepsis followed by surgical repair of the hernia and partial small bowel improving. 2. Dehydration with elevated BUN present on admission. 3. Chronic nicotine dependence. The patient is a smoker. 4. Gastroesophageal reflux disease. 5. Possible postop ileus. PLAN: We will order a plain x-ray. Diet is being advanced per surgery. Care was discussed with the patient and daughter at the bedside. Continue current treatment plan. MMODL / IJN: [id number] /
[2017-07-11] MEDS: HYDROmorphone 1 MG/ML 1 ML SYRINGE IV PRN ×6 (01:29→21:25)
[2017-07-11] MEDS: PIPERACILLIN-TAZOBACTAM 3.375 GM in DEXTROSE/WATER 1 50ML.BAG IVPB SCH ×3 (03:30→21:27)
[2017-07-11] MEDS: ONDANSETRON 4 MG/2 ML VIAL IVP PRN ×2 (05:30→21:41)
[2017-07-11] MEDS: HEPARIN SODIUM,PORCINE 5,000 UNIT/ML 1 ML VIAL SQ SCH ×2 (07:59→21:29)
[2017-07-11] MEDS: NICOTINE 21MG/24HR PATCH TRANSDERM SCH (07:59)
[2017-07-11] MEDS: FAMOTIDINE 20 MG/2 ML VIAL IV SCH ×2 (07:59→21:26)
[2017-07-11] MEDS: metroNIDAZOLE-NS PMX 500 MG in SALINE 1 100ML.BAG IVPB SCH ×3 (07:59→23:51)
[2017-07-11] MEDS: IPRATROPIUM-ALBUTEROL 3 ML NEB INHALATION SCH ×4 (08:22→20:31)
[2017-07-11 09:25] LABS: Basophils % (A) 0 %; CH 31.4; CHCM 34.3; Eosinophils # (A) 0.2 k/uL (0-0.7); Eosinophils % (A) 2 %; HCT 41.2 % (34.0-46.0); HDW 2.52; HGB 13.6 gm/dL (11.4-16.0); Luc # (Auto) 0.14; Luc % (Auto) 2; Lymphocytes # (A) 1.1 k/uL (1.0-4.8); Lymphocytes % (A) 13 %; MCH 30.4 pg (25.0-35.0); MCV 92.1 fL (80.0-100.0); Mean Platelet Volume 8.6; Monocytes # (A) 0.5 k/uL (0-1.0); Monocytes % (A) 6 %; Neutrophils # (A) 6.6 k/uL (1.3-7.7); Neutrophils % (A) 77 %; RBC 4.48 m/uL (3.80-5.40); RDW 12.9 % (11.5-15.5); WBC 8.6 k/uL (3.8-10.6); WBC (Perox) 8.27
[2017-07-11 09:33] LABS: ALT 30 U/L (9-52); AST 28 U/L (14-36); Alkaline Phosphatase 60 U/L (38-126); Anion Gap 8 mmol/L; Blood Urea Nitrogen 8 mg/dL (7-17); Calcium 8.7 mg/dL (8.4-10.2); Carbon Dioxide 26 mmol/L (22-30); Chloride 101 mmol/L (98-107); Glucose 91 mg/dL (74-99); Non-African American GFR(MDRD) >60 (>60 ml/min/1.73 sqM); Potassium 3.5 mmol/L (3.5-5.1); Sodium 135 mmol/L (137-145); Total Bilirubin 0.5 mg/dL (0.2-1.3); Total Protein 5.9 g/dL (6.3-8.2)
[2017-07-11] MEDS: 0.9% NACL WITH KCL 20 MEQ/L 1,000 ML IV SCH (13:57)
--- NOTE | 2017-07-11 14:51 | P.PN ---
Subjective Principal diagnosis: Incarcerated femoral hernia with obstruction DOing well. She reports passing flatus today. She is still having nausea off and on. She reporst having had a bowel movments. Objective - Vital Signs Vital signs: Vital Signs Temp 98.4 F 07/11/17 07:00 Pulse 72 07/11/17 11:33 Resp 18 07/11/17 07:00 BP 148/73 07/11/17 07:00 Pulse Ox 93 L 07/11/17 07:00 Intake & Output 07/10/17 07/11/17 07/11/17 18:59 06:59 18:59 Intake Total 1000 Output Total 450 Balance -450 1000 Weight 66.6 kg Intake: Oral 1000 Output: Urine 450 Other: Voiding Method Bedside Commode Bedside Commode Bedside Commode # Voids 5 2 4 # Bowel Movements 0 - Constitutional General appearance: Present: cooperative - Gastrointestinal Gastrointestinal Comment(s): moderately tender, no guarding or rebound General gastrointestinal: Present: distended, soft - Labs CBC & Chem 7: 07/11/17 09:00 07/11/17 09:00 Labs: Abnormal Lab Results - Last 24 Hours (Table) 07/11/17 Range/Units 09:00 Sodium 135 L (137-145) mmol/L Creatinine 0.49 L (0.52-1.04) mg/dL Total Protein 5.9 L (6.3-8.2) g/dL Albumin 3.1 L (3.5-5.0) g/dL Assessment and Plan (1) Tobacco abuse Status: Acute (2) Right inguinal hernia Status: Acute (3) Small bowel obstruction Status: Acute Plan: Overall doing well Patient is refusing an NG tube. She reports having flatus Will just hold off on regular and soft diet. Ok to have sips of clears and repeat AXR in the am.
--- NOTE | 2017-07-11 16:18 | P.CN ---
Psychiatric Consult - . Consult date: 07/11/17 Consult:: 07/11/17 16:08 Identification and Reason for Consult: Patient is a 56-year-old female who was admitted for repair of incarcerated for moral hernia and a consultation was requested to rule out depression and drug-seeking behavior. Patient's chart was reviewed and the patient was seen in her room no other family members were present. History of Present Illness: Patient states that she is not doing well today because her bowels are not moving correctly and she stated that she began to eat but then was told to stop eating. She is concerned about the surgery and her bowel functioning not returning to normal. Patient states that she was taking Adderall as an outpatient and has been prescribed this and she was a young person in [place]. Patient states she stopped taking this prior to coming to the hospital because she was feeling sick. Patient reports that she is not having any suicidal ideation, she states that she is getting emotional about the recovery from her surgery and is not depressed. She states that she has been caring for herself. Patient states she was treated by her primary care physician in 2002 for depression that occurred at the time there are multiple difficulties in her family, divorce and other concerns and she took Lexapro for a period of 6 months. She reports that she was diagnosed with attention deficit disorder in [place] when she was younger and has been taking Adderall since that time. Patient did not endorse any psychotic symptomatology, no manic symptoms and no anxiety symptoms. Past Psychiatric History: Patient denies any inpatient psychiatric treatment, was diagnosed with attention deficit disorder in [facility] and treated with Adderall and in 2002 was treated by her primary care physician with Lexapro for a period of depression that was in response to multiple family difficulties. Past Medical/Surgical History: Patient reports chronic headaches which she states she uses Excedrin if that doesn't work she uses [place] prescribed by her primary care physician. Current Medications Albuterol/Ipratropium (Duoneb 0.5 Mg-3 Mg/3 Ml Soln) 3 ml INHALATION RT-QID [facility] Last Admin: 07/11/17 11:21 Dose: 3 ml Albuterol/Ipratropium (Duoneb 0.5 Mg-3 Mg/3 Ml Soln) 3 ml INHALATION RT-Q2H PRN PRN Reason: Shortness Of Breath Or Wheezing Famotidine (Pepcid) 20 mg IV Q12HR [facility] Last Admin: 07/11/17 07:59 Dose: 20 mg Heparin Sodium (Porcine) (Heparin) 5,000 unit SQ Q12HR [facility] Last Admin: 07/11/17 07:59 Dose: 5,000 unit Hydromorphone HCl (Dilaudid) 1 mg IV Q3HR PRN PRN Reason: Severe Pain Last Admin: 07/11/17 13:55 Dose: 1 mg Metronidazole 500 mg/ IV (Solution) 100 mls @ 100 mls/hr IVPB Q8HR [facility] Last Admin: 07/11/17 15:22 Dose: 100 mls/hr Piperacillin/Tazobactam/ (Dextrose 3.375 gm/ IV Solution) 50 mls @ 12.5 mls/hr IVPB Q8H [facility] Last Admin: 07/11/17 11:31 Dose: 12.5 mls/hr Potassium Chloride/Sodium Chloride (Ns-Kcl 20 Meq/L Iv Solution) 1,000 mls @ 75 mls/hr IV .[id number] [facility] Last Admin: 07/11/17 13:57 Dose: 75 mls/hr Melatonin (Melatonin) 1 mg PO HS [facility] Last Admin: 07/10/17 20:44 Dose: 1 mg Miscellaneous Information (Magnesium Per Protocol) 1 each MISCELLANE DAILY PRN ; Protocol PRN Reason: Per Protocol Miscellaneous Information (Potassium Per Protocol) 1 each MISCELLANE DAILY PRN ; Protocol PRN Reason: Per Protocol Naloxone HCl (Narcan) 0.2 mg IV Q2M PRN PRN Reason: Opioid Reversal Nicotine (Habitrol 21mg/24hr Patch) 1 patch TRANSDERM DAILY [facility] Last Admin: 07/11/17 07:59 Dose: 1 patch Ondansetron HCl (Zofran) 4 mg IVP Q8HR PRN PRN Reason: Nausea And Vomiting Last Admin: 07/11/17 05:30 Dose: 4 mg Social History: [Patient was born and raised in [place] and moved here in 1980. She has been twice in the past and states she was to her second for over 30 years and he 4 years ago. Patient has 4 children to from her first marriage and 2 from her second marriage. Patient reports that she has been living in a hotel recently due to financial difficulties and once she is discharged woke up return to live with her daughter. She states that she has no source of financial support and recently was approved for food stamps. 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 Substance Use History: Patient reports no alcohol use, no drug use history and states that she does smoke cigarettes. Mental Status:Appearance/Attitude: Patient is lying in a hospital bed, in no acute distress and she is cooperative. Behavior: Patient does not display any psychomotor agitation or retardation. Speech/Language: Patient's speech is spontaneous and of normal volume and rhythm and she is coherent. Thought Process: Patient is goal-directed and there is no evidence of circumstantial or tangential thought and no loose associations or flight of ideas. Thought Content: Patient denies any auditory or visual hallucinations no delusions or paranoid ideation were elicited. Patient states that she is emotionally vulnerable about not recovering as quickly as she thought she would from her surgery. She states that she began eating better bowels have not been moving correctly. Patient states that she was looking forward to eating. Suicidal/Homicidal Ideation: Patient denies any current suicidal or homicidal ideation. Sensorium/Cognition: Patient is alert and oriented to person, place, and time and her memory is grossly intact. Mood/Affect: Patient's mood is pleasant and her affect is appropriate. Insight/Judgement: Patient's insight and judgment are fair. Assessment: Patient presents with some concerns due to her not recovering as quickly as she thought she would from the surgery. Patient states her bowels are not moving correctly and they have asked her to not continue eating until they do so. Patient reports to me that she is not having any depressive symptoms and no suicidal ideation and there is no evidence of any psychotic process. Patient was taking Adderall in the past and stopped it when she began to feel ill prior to coming to the hospital. Patient does have some financial concerns but states that she is going to live with her daughter after discharge. Diagnosis: Adjustment reaction with depressed mood, history of attention deficit disorder Plan: At this time I see no need to prescribe any antidepressant medication the patient does not have symptoms of a major depression, she has no evidence of a manic process, or a psychotic process requiring medication. I suspect that some of the patient's sadness and depression over the recent surgery may be secondary to her not continuing on her Adderall and she began to feel ill at home. As well patient was hopeful that she would recover from the surgery quicker than she has and as her bowels are not functioning correctly and she is now told to not eat she is concerned that she will not recover from the surgery. Patient states that she has had chronic headaches for a long time and uses Excedrin if that does not work Deale's from her primary care physician. Should patient continue to request pain medication would recommend a consultation with neurology to assess whether other medications could be used for her chronic headaches. I will sign off the case there are any further questions or concerns please don' t hesitate to contact me. 07/11/17 16:11
--- NOTE | 2017-07-11 17:28 | P.PN ---
<Mala Ulrich - Last Filed: 07/11/17 16:33> Progress Note - Text DATE OF SERVICE: 07/11/2017 PRESENTING COMPLAINT: Abdominal pain HISTORY OF PRESENT ILLNESS: 56-year-old female admitted with 2 days of progressive pain in the right groin nausea vomiting no fever. Found to have a right femoral hernia with obstruction , taken to surgery by Dr. Floyd. Patient is now status post exploration with repair of the femoral hernia with bowel resection and anastomosis. Admitted to the ICU because the patient appeared septic however remained afebrile and vital signs were normal through the night. Condition stabilized and patient was transferred to the medical floor. INTERVAL HISTORY: Patient lying in bed, remains on a clear liquid diet however not really tolerating it has had nausea after eating Jell-O. Abdominal x-ray reveals ileus , patient states she's had bowel movement and is passing flatus. We'll hold off on advancing her diet continue with clears per surgical preference. Patient seemed a bit emotional and a little blue psychiatry was consulted. Ambulatory in the room and miguel, continues on a clear liquid diet, last BM per I and O charting on 07/08/2017. REVIEW OF SYSTEMS: Done for constitutional ,cardiovascular, GI, pulmonary with relevant findings as above. CURRENT MEDICATIONS DuoNeb's, heparin, Pepcid, melatonin, Zosyn, nicotine patch. PHYSICAL EXAM VITAL SIGNS: Temperature 98.4, pulse 72, respirations 18, blood pressure 148/73, oxygen saturation 93% on 2 L GENERAL APPEARANCE: Lying in bed, not in distress. EYES: Pupils equal. Conjunctiva normal. NECK: JVD not raised. Mass not palpable. RESPIRATORY: Respiratory effort normal. Lungs clear to auscultation. CARDIOVASCULAR: First and second sounds normal. No edema. ABDOMEN: Soft. Liver and spleen not palpable. Mild tenderness. No mass palpable. Wound VAC removed today. PSYCHIATRY: Alert and oriented x3. Mood and affect normal. INTEGUMENT: Midline abdominal incision well approximated covered with a dry dressing. INVESTIGATIONS: Abdominal x-ray: Several dilated loops of small bowel in the mid abdomen region. Measuring up to 5 cm with air-fluid levels. ASSESSMENT: -Acute femoral hernia with small bowel obstruction causing sepsis followed by surgical repair of the hernia and partial small bowel improving -Dehydration with elevated BUN present on admission. -Chronic nicotine dependence. The patient's smoker. -Gastroesophageal reflux disease. -Postop ileus PLAN: Dr. Floyd aware of the ileus, will hold off on NG tube placement although we will follow with abdominal x-rays patient may have clear liquids no diet advancement. Encouraged patient to be up out of bed walking around. Discussed plan of care with patient at the bedside she is in agreement. We will follow closely. FAMILY REUNIFICATION SPECIALIST statement: Patient was seen and examined by nurse practitioner Mala Ulrich and all elements of the case discussed with attending Dr. Burton <Renny Burton - Last Filed: 07/11/17 18:01> Progress Note - Text Attending note. Date of service-July 11 This patient was seen and examined by me . Discussed the patient with my nurse practitioner Ms. Ulrich. Uncomfortable. On ice chips. On examination: Abdomen tender. Bowel sounds hyperactive. Investigations: X-ray shows multiple air-fluid levels Assessment and plan: Acute postoperative ileus. Did inform patient that she'll require an NG tube. Dr. Dr. Floyd. Later from his note discovered that patient refuses NG tube. IV fluids to continue.
[2017-07-11] MEDS: MELATONIN 1 MG TAB PO SCH (23:51)
[2017-07-12] MEDS: HYDROmorphone 1 MG/ML 1 ML SYRINGE IV PRN ×3 (02:00→09:51)
[2017-07-12] MEDS: PIPERACILLIN-TAZOBACTAM 3.375 GM in DEXTROSE/WATER 1 50ML.BAG IVPB SCH ×3 (03:18→17:59)
[2017-07-12] MEDS: 0.9% NACL WITH KCL 20 MEQ/L 1,000 ML IV SCH (05:53)
[2017-07-12] MEDS: metroNIDAZOLE-NS PMX 500 MG in SALINE 1 100ML.BAG IVPB SCH ×3 (07:41→23:49)
[2017-07-12] MEDS: HEPARIN SODIUM,PORCINE 5,000 UNIT/ML 1 ML VIAL SQ SCH ×2 (07:42→21:22)
[2017-07-12] MEDS: FAMOTIDINE 20 MG/2 ML VIAL IV SCH ×2 (07:42→21:22)
[2017-07-12] MEDS: NICOTINE 21MG/24HR PATCH TRANSDERM SCH (07:43)
--- NOTE | 2017-07-12 07:43 | XR ---
EXAMINATION TYPE: XR abdomen 1V DATE OF EXAM: 07/12/2017 COMPARISON: NONE INDICATION: Abdominal surgery one week prior TECHNIQUE: Single view abdomen FINDINGS: Nonspecific small bowel gas with air-fluid levels are within the midabdomen. Colonic bowel gas with s cattered air-fluid levels are present. There are some prominent small bowel loops in the left upper q uadrant. Overall, the bowel dilatation is diminished over the interval. Differential air-fluid levels are not evident. Correlate for postop ileus. Psoas margins are normal No free air is evident. Surgical clips are in the lower midabdomen. No organomegaly is present. IMPRESSION: 1. Scattered air-fluid levels with diminished air within small bowel loops. Resolving ileus may be pr esent. No obstruction is identified. Continued follow-up is recommended
[2017-07-12] MEDS: IPRATROPIUM-ALBUTEROL 3 ML NEB INHALATION SCH ×4 (08:33→20:43)
[2017-07-12] MEDS ORDERED: HYDROmorphone 1 MG/ML 1 ML SYRINGE IVP PRN (11:05)
--- NOTE | 2017-07-12 11:21 | P.PN ---
<Luann Wilson M - Last Filed: 07/12/17 11:03> Subjective Principal diagnosis: 56-year-old female being seen morning on rounds. The abdominal x-ray done this morning showed scattered air fluid levels with diminished air within the small bowel loops. Resolving ileus may be present. No obstruction identified patient reports that she did have a bowel movement this morning . Did note the psychiatrist saw the patient no recommendations to prescribe any antidepressant medication as the patient does not have symptoms of a major depression or manic process or psychotic process requiring medication. Nursing reports patient continues to request IV pain medication iv dilaudid every 3 hours for generalized pain. Did discuss with the patient will start [place] for pain control. Patient is requesting Percocet for pain control patient states Percocet are more effective she takes [place] at home for migraine and generalized pain nursing reports it takes much encouragement to get the patient to ambulate in the miguel postop on July 06 right groin exploration with repair of the femoral hernia. with exploratory laparotomy with bowel resection and anastomosis. Done for strangulated femoral hernia with a bowel obstruction . hospital course 56-year-old who presented with a chief complaint of having persistent nausea vomiting with noted swelling in the right groin. Patient stated in the past been able to reduce the hernia on her own. Patient additionally states she was developing cramping abdominal pain. Patient presented to the emergency room with the above-mentioned symptoms. Patient was seen by surgical service and did elect to proceed with a surgical intervention per dr pham service postprocedure patient was admitted to the intensive care unit for close monitoring Objective - Vital Signs Vital signs: Vital Signs Temp 98.1 F 07/12/17 07:00 Pulse 73 07/12/17 07:00 Resp 16 07/12/17 07:00 BP 106/58 07/12/17 07:00 Pulse Ox 95 07/12/17 07:00 Intake & Output 07/11/17 07/12/17 07/12/17 18:59 06:59 18:59 Intake Total 1000 Balance 1000 Intake: Oral 1000 Other: Voiding Method Bedside Commode # Voids 4 3 1 # Bowel Movements 1 - Exam physical exam 56-year-old female being seen sitting up in bed oriented 3 cooperative appears in no acute distress Lungs posterior diminished at the bases otherwise adequate air movement Heart S1-S2 audible regular denying chest pain no murmur Abdomen soft not distended bowel tones present surgical dressing dry slight surgical tenderness noted reports no nausea no vomiting tolerating diet states did have a bowel movement this morning Extremities Venodyne's on to the bilateral lower extremities no edema noted - Labs CBC & Chem 7: 07/11/17 09:00 07/11/17 09:00 Assessment and Plan Plan: Impression Present on admission persistent intractable nausea vomiting with abdominal pain with increased swelling right groin suspect due to bowel obstruction due to incarcerated inguinal hernia Post op July 06 right groin exploration with repair of femoral hernia, exploratory laparotomy with bowel resection and anastomosis due to a strangulated femoral hernia with bowel obstruction active current every day smoker nicotine dependency Osteoarthritis of multiple joints bilaterally Present on admission dehydration suspect due to intractable nausea vomiting poor oral intake Present on admission leukocytosis resolving History of attention deficit disorder History of chronic migraines Chronic pain with opiate dependency Adjustment reaction with depressed mood Plan Continue postop surgical care Encourage the use of the incentive spirometer Increase activity Repeat labs in the morning DVT and GI prophylaxis Pain control Further surgical recommendations pending clinical course The above impression and plan of care have been discussed and directed by signing physician. Luann Wilson nurse practitioner acting as scribe for signing physician. <Everett,Ahmad W - Last Filed: 07/25/17 21:23> Objective - Vital Signs Vital signs: Vital Signs Temp 99.5 F 07/14/17 07:00 Pulse 85 07/14/17 07:00 Resp 16 07/14/17 07:00 BP 117/73 07/14/17 07:00 Pulse Ox 93 L 07/14/17 07:00 - Labs CBC & Chem 7: 07/13/17 08:15 07/14/17 08:29 Assessment and Plan (1) Tobacco abuse Status: Acute (2) Right inguinal hernia Status: Acute (3) Small bowel obstruction Status: Acute
[2017-07-12] MEDS: oxyCODONE-APAP 7.5-325MG 1 EACH TAB PO PRN ×3 (12:45→22:19)
--- NOTE | 2017-07-12 15:47 | P.PN ---
<Mala Ulrich - Last Filed: 07/12/17 15:36> Progress Note - Text DATE OF SERVICE: 07/12/2017 PRESENTING COMPLAINT: Abdominal pain HISTORY OF PRESENT ILLNESS: 56-year-old female admitted with 2 days of progressive pain in the right groin nausea vomiting no fever. Found to have a right femoral hernia with obstruction , taken to surgery by Dr. Floyd. Patient is now status post exploration with repair of the femoral hernia with bowel resection and anastomosis. Admitted to the ICU because the patient appeared septic however remained afebrile and vital signs were normal through the night. Condition stabilized and patient was transferred to the medical floor. INTERVAL HISTORY: 07/12/2017: Lying in bed, abdominal x-ray continues to show scattered air-fluid levels, resolving ileus may be present. Surgical services attempted to have the patient allow an NG tube however she did not. Patient reported she had a bowel movement today. Continues on her liquid diet, is tolerating this. Taking her pain meds frequently, surgery will be adjusting these today. Patient encouraged to be up walking in the halls. 07/11/2017: Patient lying in bed, remains on a clear liquid diet however not really tolerating it has had nausea after eating Jell-O. Abdominal x-ray reveals ileus , patient states she's had bowel movement and is passing flatus. We'll hold off on advancing her diet continue with clears per surgical preference. Patient seemed a bit emotional and a little blue psychiatry was consulted. Ambulatory in the room and miguel, continues on a clear liquid diet, last BM per I and O charting on 07/08/2017. REVIEW OF SYSTEMS: Done for constitutional ,cardiovascular, GI, pulmonary with relevant findings as above. CURRENT MEDICATIONS DuoNeb's, heparin, Pepcid, melatonin, Zosyn, nicotine patch. Dilaudid PHYSICAL EXAM VITAL SIGNS: Temperature 98.1, pulse 73, respiratory rate 16, blood pressure 106/58, oxygen saturation 95% on 2 L GENERAL APPEARANCE: Lying in bed, not in distress. EYES: Pupils equal. Conjunctiva normal. NECK: JVD not raised. Mass not palpable. RESPIRATORY: Respiratory effort normal. Lungs clear to auscultation. CARDIOVASCULAR: First and second sounds normal. No edema. ABDOMEN: Soft. Liver and spleen not palpable. Mild tenderness. No mass palpable. PSYCHIATRY: Alert and oriented x3. Mood and affect normal. INTEGUMENT: Midline abdominal incision well approximated covered with a dry dressing. INVESTIGATIONS: Abdominal x-ray: Resolving ileus may be present. ASSESSMENT: -Acute femoral hernia with small bowel obstruction causing sepsis followed by surgical repair of the hernia and partial small bowel improving -Dehydration with elevated BUN present on admission. -Chronic nicotine dependence. The patient's smoker. -Gastroesophageal reflux disease. -Acute postoperative ileus PLAN: Continue the current diet, patient encouraged to be up walking around. Daily abdominal x-rays to follow course of the ileus to its resolution. Pain medications to be adjusted by surgery. Discussed plan of care with patient at the bedside she is in agreement. We will follow closely. FREIGHT TRUCKER statement: Patient was seen and examined by nurse practitioner Mala Ulrich and all elements of the case discussed with attending Dr. Burton <Renny Burton - Last Filed: 07/13/17 12:02> Progress Note - Text Attending note. Date of service-07/12/2017 This patient was seen and examined by me . Discussed the patient with my nurse practitioner Ms. Ulrich. Patient had total bowel movements. Abdomen feels less distended. Feels a bit better. On examination: Abdomen-less distended, bowel sounds present. Investigations: Labs noted Assessment and plan: Acute postoperative ileus-chronically improving. Care is discussed with the patient. Diet to address per surgery.
[2017-07-12] MEDS: ONDANSETRON 4 MG/2 ML VIAL IVP PRN (19:29)
[2017-07-12] MEDS: MELATONIN 1 MG TAB PO SCH (21:22)
[2017-07-13] MEDS: oxyCODONE-APAP 7.5-325MG 1 EACH TAB PO PRN ×5 (01:58→22:08)
[2017-07-13] MEDS: PIPERACILLIN-TAZOBACTAM 3.375 GM in DEXTROSE/WATER 1 50ML.BAG IVPB SCH ×2 (03:09→10:41)
[2017-07-13] MEDS: FAMOTIDINE 20 MG/2 ML VIAL IV SCH (07:28)
[2017-07-13] MEDS: HEPARIN SODIUM,PORCINE 5,000 UNIT/ML 1 ML VIAL SQ SCH ×2 (07:28→21:34)
[2017-07-13] MEDS: NICOTINE 21MG/24HR PATCH TRANSDERM SCH ×2 (07:28→07:35)
[2017-07-13] MEDS: metroNIDAZOLE-NS PMX 500 MG in SALINE 1 100ML.BAG IVPB SCH (07:28)
[2017-07-13] MEDS: IPRATROPIUM-ALBUTEROL 3 ML NEB INHALATION SCH ×4 (07:42→21:25)
[2017-07-13 08:45] LABS: Basophils % (A) 1 %; CH 31.5; CHCM 33.6; Eosinophils # (A) 0.1 k/uL (0-0.7); Eosinophils % (A) 2 %; HCT 39.6 % (34.0-46.0); HDW 2.48; HGB 12.8 gm/dL (11.4-16.0); Luc # (Auto) 0.13; Luc % (Auto) 2; Lymphocytes # (A) 0.9 k/uL (1.0-4.8); Lymphocytes % (A) 10 %; MCH 30.4 pg (25.0-35.0); MCHC 32.3 g/dL (31.0-37.0); MCV 94.2 fL (80.0-100.0); Mean Platelet Volume 8.9; Monocytes # (A) 0.3 k/uL (0-1.0); Monocytes % (A) 3 %; Neutrophils # (A) 6.8 k/uL (1.3-7.7); Neutrophils % (A) 83 %; RBC 4.21 m/uL (3.80-5.40); WBC 8.2 k/uL (3.8-10.6); WBC (Perox) 8.06
[2017-07-13 08:55] LABS: ALT 48 U/L (9-52); AST 53 U/L (14-36); Alkaline Phosphatase 47 U/L (38-126); Anion Gap 7 mmol/L; Blood Urea Nitrogen 9 mg/dL (7-17); Calcium 8.4 mg/dL (8.4-10.2); Carbon Dioxide 22 mmol/L (22-30); Chloride 103 mmol/L (98-107); Glucose 83 mg/dL (74-99); Non-African American GFR(MDRD) >60 (>60 ml/min/1.73 sqM); Sodium 132 mmol/L (137-145); Total Bilirubin 0.7 mg/dL (0.2-1.3); Total Protein 5.1 g/dL (6.3-8.2)
[2017-07-13 08:59] LABS: Potassium 4.3 mmol/L (3.5-5.1)
[2017-07-13] MEDS ORDERED: FAMOTIDINE 20 MG TAB PO STA (09:58)
--- NOTE | 2017-07-13 10:01 | XR ---
EXAMINATION TYPE: XR abdomen 2V DATE OF EXAM: 07/13/2017 HISTORY: Pain. Technique: 2 views of the abdomen are submitted. Comparison: 07/12/2017 Findings: There is no convincing evidence of pneumoperitoneum. Persistent dilated loops of small bowel identified in scattered air-fluid levels noted. Dilated bowel measures up to 4.3 cm. The findings likely reflect a postoperative ileus. Midline skin maxine are n oted as well as rings of sutures overlying the left hemiabdomen. No mass effects are noted. No renal calcifications are identified. IMPRESSION: 1. Persistent features of postoperative ileus.
[2017-07-13 10:43] VITALS: BMI 24.4
--- NOTE | 2017-07-13 13:39 | P.PN ---
<Danna Wilsonmickie Pedersen - Last Filed: 07/13/17 13:50> Subjective Principal diagnosis: 56-year-old female being seen morning on rounds. The abdominal x-ray done this morning showed scattered air fluid levels with diminished air within the small bowel loops. Resolving ileus may be present. No obstruction identified patient reports that she did have a bowel movement this morning . Did note the psychiatrist saw the patient no recommendations to prescribe any antidepressant medication as the patient does not have symptoms of a major depression or manic process or psychotic process requiring medication. Nursing reports patient continues to request IV pain medication iv dilaudid every 3 hours for generalized pain. Did discuss with the patient will start Gilberts for pain control. Patient is requesting Percocet for pain control patient states Percocet are more effective she takes Gilberts at home for migraine and generalized pain nursing reports it takes much encouragement to get the patient to ambulate in the miguel postop on July 06 right groin exploration with repair of the femoral hernia. with exploratory laparotomy with bowel resection and anastomosis. Done for strangulated femoral hernia with a bowel obstruction . hospital course 56-year-old who presented with a chief complaint of having persistent nausea vomiting with noted swelling in the right groin. Patient stated in the past been able to reduce the hernia on her own. Patient additionally states she was developing cramping abdominal pain. Patient presented to the emergency room with the above-mentioned symptoms. Patient was seen by surgical service and did elect to proceed with a surgical intervention per dr pham service postprocedure patient was admitted to the intensive care unit for close monitoring 56-year-old female being seen this morning on rounds patient is ambulating in the miguel 2 this morning. Patient states having a bowel movement passing gas. Currently the patient is taking a full liquid diet there's no reports of nausea vomiting. The abdominal x-ray done show persistent features of an postoperative ileus postoperatively white count is down to 8.2 this morning. Dressing to surgical site dry. Bilateral groin sites soft patient has had 2 bowel movements this morning nursing reports it slightly more formed compared to bowel movements day before which were more liquid Objective - Vital Signs Vital signs: Vital Signs Temp 99.9 F H 07/13/17 07:00 Pulse 87 07/13/17 07:00 Resp 16 07/13/17 07:00 BP 110/71 07/13/17 07:00 Pulse Ox 90 L 07/13/17 07:00 Intake & Output 07/12/17 07/13/17 07/13/17 18:59 06:59 18:59 Weight 66.6 kg Other: Voiding Method Bedside Commode # Voids 1 1 1 # Bowel Movements 2 1 1 - Exam Physical exam 56-year-old female sitting up in bed taking a diet tolerating no reports of nausea vomiting Lungs essentially clear adequate air movement on room air Heart S1-S2 audible regular Abdomen surgical dressings dry bowel tones present to soft stools this morning reportedly had 4 liquid stools the day before no nausea no vomiting slight surgical tenderness nondistended Extremities no pedal edema noted the right groin maxine in place no hematoma noted - Labs CBC & Chem 7: 07/13/17 08:15 07/13/17 08:15 Labs: Abnormal Lab Results - Last 24 Hours (Table) 07/13/17 07/13/17 Range/Units 08:15 08:15 Lymphocytes # 0.9 L (1.0-4.8) k/uL Sodium 132 L (137-145) mmol/L AST 53 H (14-36) U/L Total Protein 5.1 L (6.3-8.2) g/dL Albumin 2.6 L (3.5-5.0) g/dL Assessment and Plan Plan: Impression Present on admission persistent intractable nausea vomiting with abdominal pain with increased swelling right groin suspect due to bowel obstruction due to incarcerated inguinal hernia Post op July 06 right groin exploration with repair of femoral hernia, exploratory laparotomy with bowel resection and anastomosis due to a strangulated femoral hernia with bowel obstruction active current every day smoker nicotine dependency Osteoarthritis of multiple joints bilaterally Present on admission dehydration suspect due to intractable nausea vomiting poor oral intake Present on admission leukocytosis resolving History of attention deficit disorder History of chronic migraines Chronic pain with opiate dependency Adjustment reaction with depressed mood Postop ileus resolving Plan Continue postop surgical care Encourage the use of the incentive spirometer Increase activity Repeat labs in the morning DVT and GI prophylaxis Pain control Will DC the IV antibiotics no need for further antibiotics at this time Advance diet as tolerated encourage yogurt Anticipate being able to discharge within 24 hours Further surgical recommendations pending clinical course The above impression and plan of care have been discussed and directed by signing physician. Luann Wilson nurse practitioner acting as scribe for signing physician. <Everett,Ahmad W - Last Filed: 07/25/17 21:24> Objective - Vital Signs Vital signs: Vital Signs Temp 99.5 F 07/14/17 07:00 Pulse 85 07/14/17 07:00 Resp 16 07/14/17 07:00 BP 117/73 07/14/17 07:00 Pulse Ox 93 L 07/14/17 07:00 - Labs CBC & Chem 7: 07/13/17 08:15 07/14/17 08:29 Assessment and Plan (1) Tobacco abuse Status: Acute (2) Right inguinal hernia Status: Acute (3) Small bowel obstruction Status: Acute
--- NOTE | 2017-07-13 16:11 | P.PN ---
Progress Note - Text DATE OF SERVICE: 07/13/2017 PRESENTING COMPLAINT: Abdominal pain HISTORY OF PRESENT ILLNESS: 56-year-old female admitted with 2 days of progressive pain in the right groin nausea vomiting no fever. Found to have a right femoral hernia with obstruction , taken to surgery by Dr. Floyd. Patient is now status post exploration with repair of the femoral hernia with bowel resection and anastomosis. Admitted to the ICU because the patient appeared septic however remained afebrile and vital signs were normal through the night. Condition stabilized and patient was transferred to the medical floor. INTERVAL HISTORY: 07/13/2017: Lying in bed, abdominal x-ray showing improvement ileus resolving. Pain controlled with oral pain medication per surgery. Diet advanced by surgery, moving her bowels, ambulating in the room and miguel. 07/12/2017: Lying in bed, abdominal x-ray continues to show scattered air-fluid levels, resolving ileus may be present. Surgical services attempted to have the patient allow an NG tube however she did not. Patient reported she had a bowel movement today. Continues on her liquid diet, is tolerating this. Taking her pain meds frequently, surgery will be adjusting these today. Patient encouraged to be up walking in the halls. 07/11/2017: Patient lying in bed, remains on a clear liquid diet however not really tolerating it has had nausea after eating Jell-O. Abdominal x-ray reveals ileus , patient states she's had bowel movement and is passing flatus. We'll hold off on advancing her diet continue with clears per surgical preference. Patient seemed a bit emotional and a little blue psychiatry was consulted. Ambulatory in the room and miguel, continues on a clear liquid diet, last BM per I and O charting on 07/08/2017. REVIEW OF SYSTEMS: Done for constitutional ,cardiovascular, GI, pulmonary with relevant findings as above. CURRENT MEDICATIONS DuoNeb's, heparin subcu, Pepcid 20 mg by mouth twice a day, melatonin, 1 mg by mouth at bedtime nicotine patch. PHYSICAL EXAM VITAL SIGNS: Temperature 99.9, pulse 87, respiratory rate 16, blood pressure 110/71, oxygen saturation 90% on room air GENERAL APPEARANCE: Lying in bed, not in distress. EYES: Pupils equal. Conjunctiva normal. NECK: JVD not raised. Mass not palpable. RESPIRATORY: Respiratory effort normal. Lungs clear to auscultation. CARDIOVASCULAR: First and second sounds normal. No edema. ABDOMEN: Soft. Liver and spleen not palpable. Mild tenderness. Incision was dry dressing No mass palpable. PSYCHIATRY: Alert and oriented x3. Mood and affect normal. INTEGUMENT: Midline abdominal incision well approximated covered with a dry dressing. INVESTIGATIONS: Abdominal x-ray: Persistent features of an ileus ASSESSMENT: -Acute femoral hernia with small bowel obstruction causing sepsis followed by surgical repair of the hernia and partial small bowel improving -Acute postoperative ileus, chronically improving -Dehydration with elevated BUN present on admission. -Chronic nicotine dependence. The patient's smoker. -Gastroesophageal reflux disease. PLAN: Continue the current diet, patient encouraged to be up walking around. Daily abdominal x-rays to follow course of the ileus to its resolution. Pain medications to be adjusted by surgery. Discharge planning for the next 24-48 hours. Discussed plan of care with patient at the bedside she is in agreement. We will follow closely. JIG BUILDER statement: Patient was seen and examined by nurse practitioner Mala Ulrich and all elements of the case discussed with attending Dr. Burton
[2017-07-13] MEDS: MELATONIN 1 MG TAB PO SCH (21:33)
[2017-07-13] MEDS: FAMOTIDINE 20 MG TAB PO SCH (21:33)
--- NOTE | 2017-07-13 22:17 | PN ---
PROGRESS NOTE DATE OF SERVICE: 07/13/2017. PRESENTING COMPLAINT: Femoral hernia surgery. ATTENDING NOTE: This patient seen examined by me. I discussed with my nurse practitioner, Ms. Ulrich. Doing better, tolerating a full liquid diet, had multiple bowel movements. EXAMINATION: ABDOMEN: Soft, nontender. Bowel sounds are present. Blood pressure 110/71. ASSESSMENT: Acute postop ileus, clinically improved. Patient doing much better. PLAN: Encouraged to ambulate. I am hoping patient can probably be discharged in the next 24 hours from a medical standpoint. MMODL / IJN: [id number] /
[2017-07-14] MEDS: oxyCODONE-APAP 7.5-325MG 1 EACH TAB PO PRN ×3 (02:43→12:09)
[2017-07-14] MEDS: IPRATROPIUM-ALBUTEROL 3 ML NEB INHALATION SCH ×3 (07:30→16:33)
[2017-07-14 07:55] VITALS: BP 117/73; PULSE 85; RESP 16; TEMP 99.5
[2017-07-14] MEDS: HEPARIN SODIUM,PORCINE 5,000 UNIT/ML 1 ML VIAL SQ SCH (08:32)
[2017-07-14] MEDS: FAMOTIDINE 20 MG TAB PO SCH (08:33)
[2017-07-14 09:07] LABS: Anion Gap 9 mmol/L; Blood Urea Nitrogen 6 mg/dL (7-17); Calcium 8.9 mg/dL (8.4-10.2); Carbon Dioxide 25 mmol/L (22-30); Chloride 101 mmol/L (98-107); Glucose 104 mg/dL (74-99); Non-African American GFR(MDRD) >60 (>60 ml/min/1.73 sqM); Potassium 3.9 mmol/L (3.5-5.1); Sodium 135 mmol/L (137-145)
--- NOTE | 2017-07-14 10:07 | P.DS ---
Providers Date of admission: 07/06/17 02:11 Expected date of discharge: 07/14/17 Attending physician: Ramon Pham Consults: 07/06/17 12:18 Consult Physician Routine Consulting Provider: Tomas Copeland Consult Reason/Comments: icu management Do you want consulting provider notified?: Yes Consult Physician Urgent Consulting Provider: Renny Burton Consult Reason/Comments: medical management Do you want consulting provider notified?: Yes 07/10/17 12:31 Consult Physician Routine Consulting Provider: Ruthy Soto Consult Reason/Comments: depression? drug seeking behavior? Do you want consulting provider notified?: Yes Primary care physician: Bob Torrez [facility] Course: 56-year-old female presented with a history of being nauseated and vomiting over 36 hours. Patient stated it started suddenly continue to persist. Given the above clinical presentation the patient did proceed to the emergency room to be evaluated for the symptomatic intractable nausea vomiting patient was seen in the emergency room admitted to the surgical service. Patient gives no history of abdominal surgery in the past. Patient does give a history of having noted swelling in the right groin which occasionally would fill up patient stated she was able to reduce it in the past. Upon presenting in the emergency room the groin was quite tender and was not reducible patient was admitted with the diagnosis of bowel obstruction due to incarcerated inguinal hernia on the right. Patient underwent a surgical procedure on July [address] pham right groin exploration with repair of femoral hernia, exploratory laparotomy with bowel resection and anastamosis postprocedure patient was admitted to the intensive care unit for close monitoring patient was stabilized and he was able to transfer out of the ICU unit to the surgical unit. Patient was monitored throughout the hospitalization electrolytes In the therapeutic range pain control optimize. Patient was able to ambulate in the miguel on the day of discharge independently. Reportedly was having bowel movements and tolerating a diet patient was felt to be hemodynamically stable and appropriate to proceed with a discharge to home window caser had set up home care Patient states that her primary care provider provides her with her Bogard patient is requesting Percocet prescription for surgical pain as the Bogard here while being hospitalized were ineffective for controlling pain . Explained to the patient will prescribe 15 Percocets with no refills. Patient continued relationship with her PCP for prescribing her home dose of Bogard Impression discharge diagnosis Present on admission persistent intractable nausea vomiting with abdominal pain with increased swelling right groin suspect due to bowel obstruction due to incarcerated inguinal hernia Post op July 06 right groin exploration with repair of femoral hernia, exploratory laparotomy with bowel resection and anastomosis due to a strangulated femoral hernia with bowel obstruction active current every day smoker nicotine dependency Osteoarthritis of multiple joints bilaterally Present on admission dehydration suspect due to intractable nausea vomiting poor oral intake Present on admission leukocytosis resolving History of attention deficit disorder History of chronic migraines Chronic pain with opiate dependency Adjustment reaction with depressed mood nonspecified Postop ileus resolving The above impression and plan of care have been discussed and directed by signing physician. Luann Wilson nurse practitioner acting as scribe for signing physician. Patient Condition at Discharge: Fair Plan - Discharge Summary New Discharge Prescriptions: New Melatonin 1 mg PO HS tab Nicotine 21Mg/24Hr Patch [Habitrol] 1 patch TRANSDERM DAILY patch Albuterol Inhaler [Ventolin Hfa Inhaler] 1 - 2 puff INHALATION Q6HR PRN #1 inhaler PRN Reason: Wheezing Ipratropium [place] [Atrovent Hfa] 2 puff INHALATION QID #1 inhaler oxyCODONE-APAP 7.5-325MG [Percocet 7.5-325 mg] 1 each PO Q4HR PRN #15 tab PRN Reason: Pain Continue Dextroamphetamine/Amphetamine [Adderall] 30 mg PO TID No Action Hydrocodone/Acetaminophen [Bogard 10-325] 1 tab PO Q4H PRN PRN Reason: Pain Discharge Medication List Dextroamphetamine/Amphetamine [Adderall] 30 mg PO TID 06/22/15 [History] Hydrocodone/Acetaminophen [Bogard 10-325] 1 tab PO Q4H PRN 06/22/15 [History] Albuterol Inhaler [Ventolin Hfa Inhaler] 1 - 2 puff INHALATION Q6HR PRN #1 inhaler 07/14/17 [Rx] Ipratropium [place] [Atrovent Hfa] 2 puff INHALATION QID #1 inhaler 07/14/17 [Rx ] Melatonin 1 mg PO HS tab 07/14/17 [Rx] Nicotine 21Mg/24Hr Patch [Habitrol] 1 patch TRANSDERM DAILY patch 07/14/17 [Rx] oxyCODONE-APAP 7.5-325MG [Percocet 7.5-325 mg] 1 each PO Q4HR PRN #15 tab [Rx] Follow up Appointment(s)/Referral(s): Ramon Pham MD [STAFF PHYSICIAN] - 1 Week Bob Alejo MD [Primary Care Provider] - 1 Week Ambulatory/Diagnostic Orders: Basic Metabolic Panel [LAB.AMB] Location: Determined By Patient Complete Blood Count w/diff [LAB.AMB] Location: Determined By Patient Patient Instructions/Handouts: How to Stop Smoking (DC), Bowel Obstruction (DC) Activity/Diet/Wound Care/Special Instructions: abdominal wound care per surgical services No lifting over 10 pounds Abdominal binder to wear with activity Any fever chills or redness or drainage from surgical sites notify Dr. Pham Enmanuel to be removed from the surgical site and a follow-up visit with Dr. pham Discharge Disposition: HOME WITH HOME HEALTH SERVICES
--- NOTE | 2017-07-14 11:06 | P.PN ---
Progress Note - Text DATE OF SERVICE: 07/14/2017 PRESENTING COMPLAINT: Abdominal pain HISTORY OF PRESENT ILLNESS: 56-year-old female admitted with 2 days of progressive pain in the right groin nausea vomiting no fever. Found to have a right femoral hernia with obstruction , taken to surgery by Dr. Floyd. Patient is now status post exploration with repair of the femoral hernia with bowel resection and anastomosis. Admitted to the ICU because the patient appeared septic however remained afebrile and vital signs were normal through the night. Condition stabilized and patient was transferred to the medical floor. INTERVAL HISTORY: 07/14/2017: Lying in bed appears comfortable. No nausea or vomiting, moving her bowels. Ambulating in the room and hallway without difficulty. Tolerating her diet which is a soft diet. Surgeries plan is to discharge the patient home today. 07/13/2017: Lying in bed, abdominal x-ray showing improvement ileus resolving. Pain controlled with oral pain medication per surgery. Diet advanced by surgery, moving her bowels, ambulating in the room and miguel. 07/12/2017: Lying in bed, abdominal x-ray continues to show scattered air-fluid levels, resolving ileus may be present. Surgical services attempted to have the patient allow an NG tube however she did not. Patient reported she had a bowel movement today. Continues on her liquid diet, is tolerating this. Taking her pain meds frequently, surgery will be adjusting these today. Patient encouraged to be up walking in the halls. 07/11/2017: Patient lying in bed, remains on a clear liquid diet however not really tolerating it has had nausea after eating Jell-O. Abdominal x-ray reveals ileus , patient states she's had bowel movement and is passing flatus. We'll hold off on advancing her diet continue with clears per surgical preference. Patient seemed a bit emotional and a little blue psychiatry was consulted. Ambulatory in the room and miguel, continues on a clear liquid diet, last BM per I and O charting on 07/08/2017. REVIEW OF SYSTEMS: Done for constitutional ,cardiovascular, GI, pulmonary with relevant findings as above. CURRENT MEDICATIONS DuoNeb's, heparin subcu, Pepcid 20 mg by mouth twice a day, melatonin, 1 mg by mouth at bedtime nicotine patch. PHYSICAL EXAM VITAL SIGNS: Temperature 99.9, pulse 87, respiratory rate 16, blood pressure 110/71, oxygen saturation 90% on room air GENERAL APPEARANCE: Lying in bed, not in distress. EYES: Pupils equal. Conjunctiva normal. NECK: JVD not raised. Mass not palpable. RESPIRATORY: Respiratory effort normal. Lungs clear to auscultation. CARDIOVASCULAR: First and second sounds normal. No edema. ABDOMEN: Soft. Liver and spleen not palpable. Mild tenderness. Incision was dry dressing No mass palpable. PSYCHIATRY: Alert and oriented x3. Mood and affect normal. INTEGUMENT: Midline abdominal incision well approximated covered with a dry dressing. INVESTIGATIONS: Sodium 135, BUN 6, creatinine 0.52 ASSESSMENT: -Acute femoral hernia with small bowel obstruction causing sepsis followed by surgical repair of the hernia and partial small bowel improving -Acute postoperative ileus, clinically improving -Dehydration with elevated BUN present on admission. -Chronic nicotine dependence. The patient's smoker. -Gastroesophageal reflux disease. PLAN: Continue the current diet, patient encouraged to be up walking around. Patient discharge per surgical services, going home to the care of her daughter. HEDDLER TIER statement: Patient was seen and examined by nurse practitioner Mala Ulrich and all elements of the case discussed with attending Dr. Burton
--- NOTE | 2017-07-16 09:07 | PN ---
PROGRESS NOTE DATE OF SERVICE: 07/14/2017 ATTENDING NOTE: This patient was seen and examined by me. I discussed this with my nurse practitioner, Ms. Ulrich. The patient was seen by me on July 14, 2017. That is yesterday. Doing much better. Tolerating a diet. Having bowel movement. Abdominal pain is greatly improved. EXAM: On exam: ABDOMEN: Soft, nontender. Bowel sounds present. LUNGS: Clear. LABORATORY DATA: Sodium 135. ASSESSMENT: 1. Postop ileus, resolved. 2. /chronic obstructive pulmonary disease in a smoker. PLAN: Patient will be switched to inhaled Atrovent and p.r.n. albuterol. Care was discussed with the patient. Should follow with family doctor. Thank you. URBANO / ZEINA: [id number] /
--- NOTE | 2017-07-19 16:41 | CDI ---
In responding to this query, please exercise your independent professional judgment. The [facility] Coding Staff and Clinical Documentation Specialists appreciate your assistance in clarifying documentation, maintaining compliance with coding guidelines, accurately documenting patients condition and capturing severity of illness. The fact that a question is asked does not imply that any particular answer is desired or expected. Communication forms are a method of clarifying documentation and are not made part of the Legal Health Record. Thank you in advance for your clarification. Last Revision, September 2015 Placido Joel [address] [place] [address] Documentation Clarification Form Date: 07/19/2017 4:20:00 PM From: Renetta Alexandra [facility] Admit Date: 07/06/2017 2:11:00 AM Patient Name: Saira Garcia Visit Number: [id number] Discharge Date: 07-14-17 Luann Wilson, DIRECTOR SALES TRAININGMichelC: Clinical Indicators/Scenario: s/p post op ileus. PN on 07-10-17 mentions "possible post op ileus". D.Summary states "post op ileus". Patient history/risk factors: Opiate dependent, chronic pain, history of abdominal OR, surgery this admission on 07-06-17, sepsis, dehydration. Radiology findings: 07-10-17 Abdomen 2 views = Findings consistent with SBO, although post op ileus could have this appearance. 07-12-17 Abdomen 1 view = Resolving ileus may be present. 07-13-17 Abdomen 2 views = Persistent features of post op ileus. Treatment: NG ordered 07-06-17 postoperatively. Chart states patient refused NG placement. Dietary orders 07-10-17 = full liquid. 07-11-17 = clear liquid to soft. 07-13-17 = full liquid. In your professional opinion, can you please clarify- was the ileus: * A complication of the procedure done on 07-06-17 Repair of femoral right hernia, sm. bowel resection w/anastamosis and Right inguinal exploration, open. * Integral to the above procedures * Not clinically significant * Other, please specify * Clinically unable to determine If you have a question about this query, please contact Annie Esteban Pony Roll Finisher at [phone] between 8am-5pm. Please document an addendum in the discharge summary and sign below: NAME DATE FYI: Press F11 to launch patient chart. MTDD
--- NOTE | 2017-07-24 12:40 | CDI ---
In responding to this query, please exercise your independent professional judgment. The [facility] Coding Staff and Clinical Documentation Specialists appreciate your assistance in clarifying documentation, maintaining compliance with coding guidelines, accurately documenting patients condition and capturing severity of illness. The fact that a question is asked does not imply that any particular answer is desired or expected. Communication forms are a method of clarifying documentation and are not made part of the Legal Health Record. Thank you in advance for your clarification. Last Revision, September 2015 Placido Joel [address] [place] [address] Documentation Clarification Form Date: 07/19/2017 4:20:00 PM From: Renetta Alexandra [facility] Admit Date: 07/06/2017 2:11:00 AM Patient Name: Saira Garcia Visit Number: [id number] Discharge Date: 07-14-17 Luann Wilson, CLINICAL IMPLEMENTATION SPECIALISTMichelC: Clinical Indicators/Scenario: s/p post op ileus. PN on 07-10-17 mentions "possible post op ileus". D.Summary states "post op ileus". Patient history/risk factors: Opiate dependent, chronic pain, history of abdominal OR, surgery this admission on 07-06-17, sepsis, dehydration. Radiology findings: 07-10-17 Abdomen 2 views = Findings consistent with SBO, although post op ileus could have this appearance. 07-12-17 Abdomen 1 view = Resolving ileus may be present. 07-13-17 Abdomen 2 views = Persistent features of post op ileus. Treatment: NG ordered 07-06-17 postoperatively. Chart states patient refused NG placement. Dietary orders 07-10-17 = full liquid. 07-11-17 = clear liquid to soft. 07-13-17 = full liquid. In your professional opinion, can you please clarify- was the ileus: * A complication of the procedure done on 07-06-17 Repair of femoral right hernia, sm. bowel resection w/anastamosis and Right inguinal exploration, open. * Integral to the above procedures * Not clinically significant * Other, please specify * Clinically unable to determine Please document an addendum in the discharge summary and sign below: NAME DATE FYI: Press F11 to launch patient chart. If you have a question about this query, please contact Annie Esteban Scrap Stripper Hand at [phone] between 8am-5pm. RUTH ANN
== END 2017-07-14 17:15 | disposition home or self-care (01) | DRG 854 ==
LOC: EC 23:57 → 3SUR 07-06 02:11 → 6ICU 07-06 12:38 → 4MS4W 07-07 21:48
PROVIDERS: ADMIT Surgery; ATTEND Surgery
PROC: 0DB80ZZ Excision of Small Intestine, Open Approach (ICD-10-PCS; 2017-07-06)
PROC: 0YQ70ZZ Repair Right Femoral Region, Open Approach (ICD-10-PCS; principal; 2017-07-06 09:10)
DX: A41.9 Sepsis, unspecified organism (principal); F11.20 Opioid dependence, uncomplicated; K56.7 Ileus, unspecified; K41.30 Unilateral femoral hernia, with obstruction, without gangrene, not specified as recurrent; E86.0 Dehydration; F43.21 Adjustment disorder with depressed mood; K21.9 Gastro-esophageal reflux disease without esophagitis; M15.9 Polyosteoarthritis, unspecified; F98.8 Other specified behavioral and emotional disorders with onset usually occurring in childhood and adolescence; R65.20 Severe sepsis without septic shock; R53.83 Other fatigue; T43.626A Underdosing of amphetamines, initial encounter; J44.9 Chronic obstructive pulmonary disease, unspecified; G89.29 Other chronic pain; R94.4 Abnormal results of kidney function studies; G43.909 Migraine, unspecified, not intractable, without status migrainosus; F17.210 Nicotine dependence, cigarettes, uncomplicated; Z71.3 Dietary counseling and surveillance; Z63.79 Other stressful life events affecting family and household; Z71.6 Tobacco abuse counseling; Z88.5 Allergy status to narcotic agent; Z88.8 Allergy status to other drugs, medicaments and biological substances; Z86.69 Personal history of other diseases of the nervous system and sense organs; Z86.718 Personal history of other venous thrombosis and embolism; Z91.040 Latex allergy status; Z79.899 Other long term (current) drug therapy; Z91.138 Patient's unintentional underdosing of medication regimen for other reason; Z59.9 Problem related to housing and economic circumstances, unspecified; Z86.59 Personal history of other mental and behavioral disorders; Z87.19 Personal history of other diseases of the digestive system; Z91.19 Patient's noncompliance with other medical treatment and regimen; Z86.79 Personal history of other diseases of the circulatory system
CPT/HCPCS: 36415; 74000; 74020; 74177; 80048; 80053; 81001; 82150; 83690; 83735; 84100; 85025; 88307; 94640; 96361; 96374; 96375; 99285

== ENCOUNTER 2019-09-15 18:36 | Emergency (ER) | payer OTHER ==
[2019-09-15] MEDS ORDERED: LIDOCAINE 1% INJ 10MG/ML (20 ML MDV) SQ ONE (18:54)
[2019-09-15] MEDS ORDERED: DIPH,PERTUS(ACELL)TETVAC-LF 0.5 ML VIAL IM ONE (18:54)
--- NOTE | 2019-09-15 18:59 | ED ---
General Adult HPI - General Chief complaint: Wound/Laceration Stated complaint: Hand laceration Time Seen by Provider: 09/15/19 18:45 Source: patient Mode of arrival: ambulatory Limitations: no limitations - History of Present Illness Initial comments: Patient is a 58-year-old female presenting to emergency Department with chief complaint of hand laceration. Patient reports she was washing dishes when she lacerated the posterior aspect of her right hand. Patient reports active bleeding even though she is not on blood thinners. Patient reports full range of motion. She states some numbness and denies any tingling. Patient denies taking medications for the symptoms. Patient does report and "bump" under to settle laceration. Tetanus not up-to-date - Related Data Home Medications Medication Instructions Recorded Confirmed Dextroamphetamine/Amphetamine 30 mg PO TID 06/22/15 07/06/17 [Adderall] Hydrocodone/Acetaminophen [[place] 1 tab PO Q4H PRN 06/22/15 07/06/17 10-325] Previous Rx's Medication Instructions Recorded Albuterol Inhaler [Ventolin Hfa 1 - 2 puff INHALATION Q6HR PRN #1 07/14/17 Inhaler] inhaler Ipratropium [place] [Atrovent Hfa] 2 puff INHALATION QID #1 inhaler 07/14/17 Melatonin 1 mg PO HS tab 07/14/17 Nicotine 21Mg/24Hr Patch [Habitrol] 1 patch TRANSDERM DAILY patch 07/14/17 oxyCODONE-APAP 7.5-325MG [Percocet 1 each PO Q4HR PRN #15 tab 07/14/17 7.5-325 mg] Amoxic-Pot Clav 875-125Mg 1 tab PO Q12HR 7 Days #14 tablet 12/10/17 [Augmentin 875-125] Allergies Allergy/AdvReac Type Severity Reaction Status Date / Time diazepam [From Valium] Allergy Unknown Verified 09/15/19 18:42 ketorolac [From Toradol] Allergy Unknown Verified 09/15/19 18:42 latex Allergy Rash/Hives Verified 09/15/19 18:42 tramadol [From Ultram] Allergy Unknown Verified 09/15/19 18:42 Review of Systems ROS Statement: Those systems with pertinent positive or pertinent negative responses have been documented in the HPI. ROS Other: All systems not noted in ROS Statement are negative. Past Medical History Past Medical History: No Reported History Additional Past Medical History / Comment(s): migraines, back pain History of Any Multi-Drug Resistant Organisms: None Reported Past Surgical History: Bowel Resection, Hernia Repair Past Anesthesia/Blood Transfusion Reactions: No Reported Reaction Past Psychological History: ADD/ADHD, Depression Smoking Status: Current every day smoker Past Alcohol Use History: None Reported Past Drug Use History: None Reported - Past Family History Father Family Medical History: No Reported History Mother Family Medical History: No Reported History General Exam Limitations: no limitations General appearance: alert, in no apparent distress Head exam: Present: atraumatic, normocephalic, normal inspection Eye exam: Present: normal appearance Pupils: Present: normal accommodation ENT exam: Present: normal exam, normal oropharynx, mucous membranes moist, TM's normal bilaterally, normal external ear exam Neck exam: Present: normal inspection, full ROM Respiratory exam: Present: normal lung sounds bilaterally Cardiovascular Exam: Present: regular rate, normal rhythm, normal heart sounds Extremities exam: Present: full ROM, tenderness (Tenderness at the site of laceration), normal capillary refill, other (+2 ulnar and radial pulses bilaterally.). Absent: normal inspection (1 cm laceration on the posterior aspect of her right hand. Some soft tissue swelling. ) Back exam: Present: normal inspection, full ROM Neurological exam: Present: alert, oriented X3 Psychiatric exam: Present: normal affect, normal mood Skin exam: Present: warm, intact, normal color Course Vital Signs 09/15/19 18:40 Temperature 98.2 F Pulse Rate 100 Respiratory 16 Rate Blood Pressure 147/89 O2 Sat by Pulse 96 Oximetry Medical Decision Making - Medical Decision Making Patient is a 58-year-old female presenting to emergency Department with a chief complaint of a laceration. Physical examination is only indicative of a small hematoma underlying the laceration site. Patient has full range of motion. Patient neurovascularly intact. X-rays negative for foreign body, acute fracture-dislocation. Laceration site was repaired with 3 sutures. Patient was given a tetanus shot. The wound site was irrigated thoroughly. Strict return parameters were thoroughly discussed the patient was understanding and agreeable. Patient advised to return to emergency department in 10 days for suture removal. Case discussed physician. Disposition Clinical Impression: Laceration Disposition: HOME SELF-CARE Condition: Stable Instructions (If sedation given, give patient instructions): Care For Your Stitches (DC), Laceration (DC) Additional Instructions: Please follow proper wound care instructions. Please return to emergency department in 10 days for suture removal. Is patient prescribed a controlled substance at d/c from ED?: No Referrals: Bob Alejo MD [Primary Care Provider] - 1-2 days Time of Disposition: 19:56
[2019-09-15 20:09] VITALS: BP 135/82; PULSE 89; RESP 18; TEMP 98
--- NOTE | 2019-09-15 20:24 | XR ---
EXAMINATION TYPE: XR hand complete RT DATE OF EXAM: 09/15/2019 COMPARISON: None HISTORY: Pain laceration second digit TECHNIQUE: Three-view right hand FINDINGS: There is subluxation of the index and middle fingers on the metacarpals. There is loss of j oint space of the proximal distal interphalangeal joint spaces. Advanced degenerative joint space john nges are in the distal ring finger and through the proximal distal fifth digit. IMPRESSION: 1. Advanced degenerative joint changes discussed above. 2. No radiopaque foreign bodies. 3. No acute osseous abnormality
== END 2019-09-15 20:12 | disposition home or self-care (01) ==
LOC: EC 18:36
DX: S61.411A Laceration without foreign body of right hand, initial encounter (principal); Z23 Encounter for immunization; F90.9 Attention-deficit hyperactivity disorder, unspecified type; F17.200 Nicotine dependence, unspecified, uncomplicated; Z79.899 Other long term (current) drug therapy; Z88.5 Allergy status to narcotic agent; Z88.8 Allergy status to other drugs, medicaments and biological substances; Z91.040 Latex allergy status; W45.8XXA Other foreign body or object entering through skin, initial encounter; Y93.G1 Activity, food preparation and clean up; Y92.009 Unspecified place in unspecified non-institutional (private) residence as the place of occurrence of the external cause
CPT/HCPCS: 73130; 90715; 99283; 12001; 90471; J2001

== ENCOUNTER 2019-12-22 14:24 | Observation (INO) | payer OTHER ==
[2019-12-22] MEDS ORDERED: diphenhydrAMINE 50 MG/ML 1 ML VIAL IVP STA (15:09)
[2019-12-22] MEDS ORDERED: SODIUM CHLORIDE 0.9% 1,000 ML IV ONE (15:09)
[2019-12-22] MEDS ORDERED: SODIUM CHLORIDE 0.9% 500 ML 500 ML IV ONE (15:09)
[2019-12-22] MEDS ORDERED: SODIUM CHLORIDE 0.9% 1,000 ML IV SCH (15:15)
[2019-12-22 15:56] LABS: Basophils # (A) 0.1 k/uL (0-0.2); Basophils % (A) 1 %; Eosinophils # (A) 0.2 k/uL (0-0.7); Eosinophils % (A) 2 %; HCT 43.6 % (34.0-46.0); HGB 14.4 gm/dL (11.4-16.0); Lymphocytes # (A) 1.5 k/uL (1.0-4.8); Lymphocytes % (A) 20 %; MCH 29.1 pg (25.0-35.0); MCHC 32.9 g/dL (31.0-37.0); MCV 88.2 fL (80.0-100.0); Mean Platelet Volume 8.4; Monocytes # (A) 0.3 k/uL (0-1.0); Monocytes % (A) 4 %; Neutrophils # (A) 5.5 k/uL (1.3-7.7); Neutrophils % (A) 71 %; Platelet Count 261 k/uL (150-450); RBC 4.95 m/uL (3.80-5.40); RDW 12.4 % (11.5-15.5); WBC 7.7 k/uL (3.8-10.6)
[2019-12-22 16:15] LABS: ALT 22 U/L (4-34); AST 28 U/L (14-36); African American GFR (CKD) >90 (>60 ml/min/1.73 sqM); Albumin 4.3 g/dL (3.5-5.0); Alkaline Phosphatase 115 U/L (38-126); Anion Gap 10 mmol/L; Blood Urea Nitrogen 12 mg/dL (7-17); Carbon Dioxide 26 mmol/L (22-30); Chloride 102 mmol/L (98-107); Glucose 83 mg/dL (74-99); Non-African American GFR(CKD) >90 (>60 ml/min/1.73 sqM); Potassium 4.2 mmol/L (3.5-5.1); Sodium 138 mmol/L (137-145); Total Bilirubin 0.3 mg/dL (0.2-1.3); Total Protein 7.6 g/dL (6.3-8.2)
--- NOTE | 2019-12-22 16:17 | USB ---
EXAMINATION TYPE: US breast complete LT DATE OF EXAM: 12/22/2019 COMPARISON: NONE CLINICAL HISTORY: wound. FINDINGS: Heterogeneous mass seen occupying a large portion of the breast appears to be hypervascular and nonmo bile. Lymphadenopathy in the left axilla measuring 2.2 cm. IMPRESSION: Incomplete: BI-RADS 0 Diffuse abnormal echogenicity throughout the left breast with a heterogeneous hypervascular mass inv olving the majority of the left breast. Could be postinfectious or neoplastic correlate clinically. C orrelate with mammogram.
[2019-12-22] MEDS ORDERED: MORPHINE SULFATE 2 MG/ML SYRINGE IVP STA (16:28)
--- NOTE | 2019-12-22 16:28 | ED ---
Wound/Laceration HPI - General Source: patient Mode of arrival: ambulatory Limitations: no limitations <Indigo Cyr - Last Filed: 12/22/19 16:34> <Javi Rust - Last Filed: 12/22/19 16:48> - General Chief Complaint: Wound/Laceration Stated Complaint: Breast Wound Time Seen by Provider: 12/22/19 14:41 - History of Present Illness Initial Comments: 5-year-old female presenting today for chief complaint of left breast mass. Patient's concerned about cancer. She states that than that for months if not year. Patient states is now orders and has drainage she states the drainage is clear she yellow. Patient denies fever or flulike symptoms denies chest pain shortness of breath. Patient has no other complaints she is tearful during history taking. Remaining review of systems negative denies any other areas of lesion. (Indigo Cyr) - Related Data Home Medications Medication Instructions Recorded Confirmed Dextroamphetamine/Amphetamine 30 mg PO TID 06/22/15 07/06/17 [Adderall] Hydrocodone/Acetaminophen [[place] 1 tab PO Q4H PRN 06/22/15 07/06/17 10-325] Previous Rx's Medication Instructions Recorded Albuterol Inhaler [Ventolin Hfa 1 - 2 puff INHALATION Q6HR PRN #1 07/14/17 Inhaler] inhaler Ipratropium [place] [Atrovent Hfa] 2 puff INHALATION QID #1 inhaler 07/14/17 Melatonin 1 mg PO HS tab 07/14/17 Nicotine 21Mg/24Hr Patch [Habitrol] 1 patch TRANSDERM DAILY patch 07/14/17 oxyCODONE-APAP 7.5-325MG [Percocet 1 each PO Q4HR PRN #15 tab 07/14/17 7.5-325 mg] Amoxic-Pot Clav 875-125Mg 1 tab PO Q12HR 7 Days #14 tablet 12/10/17 [Augmentin 875-125] Allergies Allergy/AdvReac Type Severity Reaction Status Date / Time diazepam [From Valium] Allergy Unknown Verified 12/22/19 14:29 ketorolac [From Toradol] Allergy Unknown Verified 12/22/19 14:29 latex Allergy Rash/Hives Verified 12/22/19 14:29 tramadol [From Ultram] Allergy Unknown Verified 12/22/19 14:29 Review of Systems ROS Other: All systems not noted in ROS Statement are negative. <Indigo Cyr - Last Filed: 12/22/19 16:34> ROS Other: All systems not noted in ROS Statement are negative. <Javi Rust - Last Filed: 12/22/19 16:48> ROS Statement: Those systems with pertinent positive or pertinent negative responses have been documented in the HPI. Past Medical History Past Medical History: No Reported History Additional Past Medical History / Comment(s): migraines, back pain History of Any Multi-Drug Resistant Organisms: None Reported Past Surgical History: Bowel Resection, Hernia Repair Past Anesthesia/Blood Transfusion Reactions: No Reported Reaction Past Psychological History: ADD/ADHD, Depression Smoking Status: Current every day smoker Past Alcohol Use History: None Reported Past Drug Use History: None Reported - Past Family History Father Family Medical History: No Reported History Mother Family Medical History: No Reported History <Indigo Cyr - Last Filed: 12/22/19 16:34> General Exam Limitations: no limitations <Indigo Cyr - Last Filed: 12/22/19 16:34> - General Exam Comments Initial Comments: General: The patient is awake and alert, in no distress Eye: +3 mm pupils are equal, round and reactive to light, extra-ocular m ovements are intact. No nystagmus. There is normal conjunctiva bilaterally. No signs of icterus. Ears, nose, mouth and throat: There are moist mucous membranes and no oral lesions. Neck: The neck is supple, there is no tenderness or JVD. Cardiovascular: There is a regular rate and rhythm. No murmur, rub or gallop is appreciated. Respiratory: Lungs are clear to auscultation, respirations are non-labored, breath sounds are equal. No wheezes, stridor, rales, or rhonchi. Musculoskeletal: Normal ROM, no tenderness. Strength 5/5. Sensation intact. Pulses equal bilaterally 2+. Neurological: A&O x 3. CN II-XII intact grossly, There are no obvious motor or sensory deficits. Coordination appears grossly intact. Speech is normal. Skin: Skin is warm and dry and no rashes. Large 8-10cm fungating, cavitary br east mass that is odorous on left breast at the 2-3oclock position, palpable adjacent lymph nodes. Psychiatric: Cooperative, tearful (Indigo Cyr) Course <Javi Rust - Last Filed: 12/22/19 16:48> Vital Signs 12/22/19 14:29 Temperature 97.7 F Pulse Rate 89 Respiratory 18 Rate Blood Pressure 146/91 O2 Sat by Pulse 97 Oximetry - Reevaluation(s) Reevaluation #1: 12/22/19 16:47 Patient reevaluated by myself, Dr. Rust. PA negative present. Patient does have advanced-appearing wound to the majority of the left breast. The wound is open with some white appearing discharge. 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 Patient states this has been present for years. Patient has not seen a doctor for the shot. Case discussed with Dr. Monroe, who will admit for Dr. Burton, who admits for Dr. alejo (Javi Rust) Medical Decision Making - Lab Data Result diagrams: 12/22/19 15:36 12/22/19 15:36 <Indigo Cyr - Last Filed: 12/22/19 16:34> - Lab Data Result diagrams: 12/22/19 15:36 12/22/19 15:36 <Javi Rust - Last Filed: 12/22/19 16:48> - Medical Decision Making 59-year-old female presenting today for chief complaint of left breast mass concern for breast cancer. Concern for possible secondary infection. Patient initiated Zosyn blood cultures pending. Patient will be admitted for breast surgery/oncology consultation. Dr. Rust at [place] patient is agreeable to admission and care plan he spoke with the admitting provider patient is agreeable to admission (Indigo Cyr) - Lab Data Lab Results 12/22/19 12/22/19 12/22/19 Range/Units 15:36 15:36 15:36 WBC 7.7 (3.8-10.6) k/uL RBC 4.95 (3.80-5.40) m/uL Hgb 14.4 (11.4-16.0) gm/dL Hct 43.6 (34.0-46.0) % MCV 88.2 (80.0-100.0) fL MCH 29.1 (25.0-35.0) pg MCHC 32.9 (31.0-37.0) g/dL RDW 12.4 (11.5-15.5) % Plt Count 261 (150-450) k/uL Neutrophils % 71 % Lymphocytes % 20 % Monocytes % 4 % Eosinophils % 2 % Basophils % 1 % Neutrophils # 5.5 (1.3-7.7) k/uL Lymphocytes # 1.5 (1.0-4.8) k/uL Monocytes # 0.3 (0-1.0) k/uL Eosinophils # 0.2 (0-0.7) k/uL Basophils # 0.1 (0-0.2) k/uL Sodium 138 (137-145) mmol/L Potassium 4.2 (3.5-5.1) mmol/L Chloride 102 (98-107) mmol/L Carbon Dioxide 26 (22-30) mmol/L Anion Gap 10 mmol/L BUN 12 (7-17) mg/dL Creatinine 0.58 (0.52-1.04) mg/dL Est GFR (CKD-EPI)AfAm >90 (>60 ml/min/1.73 sqM) Est GFR (CKD-EPI)NonAf >90 (>60 ml/min/1.73 sqM) Glucose 83 (74-99) mg/dL Plasma Lactic Acid Michele 1.0 (0.7-2.0) mmol/L Calcium 10.0 (8.4-10.2) mg/dL Total Bilirubin 0.3 (0.2-1.3) mg/dL AST 28 (14-36) U/L ALT 22 (4-34) U/L Alkaline Phosphatase 115 (38-126) U/L Total Protein 7.6 (6.3-8.2) g/dL Albumin 4.3 (3.5-5.0) g/dL Disposition Is patient prescribed a controlled substance at d/c from ED?: No Time of Disposition: 16:36 Decision to Admit Reason: Admit from EC Decision Date: 12/22/19 Decision Time: 16:36 <Indigo Cyr - Last Filed: 12/22/19 16:34> <Jvai Rust - Last Filed: 12/22/19 16:48> Clinical Impression: Breast mass, Breast infection Disposition: ADMITTED IP TO THIS HOSP Condition: Stable Referrals: Bob Alejo MD [Primary Care Provider] - 1-2 days
[2019-12-22] MEDS ORDERED: NALOXONE 0.4 MG/ML 1 ML VIAL IV PRN (16:30)
[2019-12-22] MEDS ORDERED: PIPERACILLIN-TAZOBACTAM 3.375 GM in SODIUM CHLORIDE 0.9% 100 ML IVPB STA (16:33)
[2019-12-22] MEDS ORDERED: ACETAMINOPHEN TAB 325 MG TAB PO PRN (17:11)
--- NOTE | 2019-12-22 17:22 | P.HPIM ---
History of Present Illness H&P Date: 12/22/19 Chief Complaint: Left breast mass 59-year-old female with PMH of chronic headaches and rheumatoid arthritis presents the ED for left breast mass. Her daughter is at bedside. Patient states that she noticed a mass under her left breast during the summer of this year. The mass eventually grew and patient noticed breakdown of the surrounding skin along with discharge has been ongoing since September. Patient did not seek medical attention for this problem. She denies any headache, lower extremity edema, nausea or vomiting, fever or chills, cough, chest pain, shortness of breath, palpitations, changes in urination or bowel habits. No changes in appetite or weight. She denies any dizziness, numbness/weakness/tingling of the extremities. In the ED, her vital signs were stable with slightly elevated BP of 146/91. CBC and CMP was within normal limits. Breast ultrasound shows diffuse echogenicity throughout the left breast with heterogenous hypervascular mass involving the majority of the left breast. Patient is admitted for left breast cellulitis and for breast surgery and oncology evaluation. Review of Systems Pertinent positives and negatives as discussed in HPI, a complete review of systems was performed and all other systems are negative. Past Medical History Past Medical History: No Reported History Additional Past Medical History / Comment(s): migraines, back pain History of Any Multi-Drug Resistant Organisms: None Reported Past Surgical History: Bowel Resection, Hernia Repair Past Anesthesia/Blood Transfusion Reactions: No Reported Reaction Past Psychological History: ADD/ADHD, Depression Smoking Status: Current every day smoker Past Alcohol Use History: None Reported Past Drug Use History: None Reported - Past Family History Father Family Medical History: No Reported History Mother Family Medical History: No Reported History Medications and Allergies Home Medications Medication Instructions Recorded Confirmed Type Dextroamphetamine/Amphetamine 30 mg PO TID 06/22/15 07/06/17 History [Adderall] Hydrocodone/Acetaminophen [[place] 1 tab PO Q4H PRN 06/22/15 07/06/17 History 10-325] Escitalopram [Lexapro] 10 mg PO HS 12/22/19 12/22/19 History Allergies Allergy/AdvReac Type Severity Reaction Status Date / Time diazepam [From Valium] Allergy Unknown Verified 12/22/19 17:09 ketorolac [From Toradol] Allergy Unknown Verified 02/16/20 17:09 latex Allergy Rash/Hives Verified 12/22/19 17:09 tramadol [From Ultram] Allergy Unknown Verified 12/22/19 17:09 Physical Exam Vitals: Vital Signs Temp Pulse Resp BP Pulse Ox 12/22/19 14:29 97.7 F 89 18 146/91 97 Intake and Output 12/22/19 12/22/19 12/22/19 06:59 14:59 22:59 Other: Weight 66.678 kg General: [non toxic], [no distress], [appears at stated age] Derm: [warm], [dry] Head: [atraumatic], [normocephalic], [symmetric] Eyes: [EOMI], [no lid lag], [anicteric sclera] Mouth: [no lip lesion], [mucus membranes moist] Cardiovascular: [S1S2 reg], [no murmur], [positive posterior tibial pulse bilateral], [large 10 cm fungating cavitary breast mass with serosanguineous d ischarge and underlying erythema in the upper lateral portion of the left breast along with palpable lymph nodes] Lungs: [CTA bilateral], [no rhonchi, no rales] , [no accessory muscle use] Abdominal: [soft], [ nontender to palpation], [no guarding], [no appreciable organomegaly] Ext: [no gross muscle atrophy], [no edema], [no contractures] Neuro: [ CN II-XI grossly intact], [no focal neuro deficits] Psych: [Alert], [oriented], [appropriate affect] Results CBC & Chem 7: 12/22/19 15:36 12/22/19 15:36 Assessment and Plan Assessment: Left-sided breast mass, likely cancer with overlying cellulitis Chronic headaches Depression and ADHD As seen on breast ultrasound. No leukocytosis or fever. Received 1 dose of Zosyn in ED. Plans: Consult breast surgery. She will need biopsy. Start Keflex for possible overlying cellulitis. Follow oncology recommendations. Plans: Advised against narcotic medication for chronic treatment of headaches. Tylenol, [place] or morphine as needed. Plans: Resume Adderall. Resume Lexapro. DVT prophylaxis: [SCD] Discussed with: [Patient and daughter] Anticipated discharge: [1-2 days] Anticipated discharge place: [Home] A total of [45] minutes was spent on the care of this complex patient more than 50% of the time was spent in counseling and care coordination. Patient to be full code at this time. Her daughter is her decision maker if she can't make decisions for herself.
[2019-12-22] MEDS: NON FORMULARY DRUG (Dextroamphetamine/Amphetamine [Adderall] 30 MG) PO SCH (20:03)
[2019-12-22] MEDS: NICOTINE 14MG/24HR PATCH TRANSDERM SCH ×2 (20:29→20:32)
[2019-12-22] MEDS: MORPHINE SULFATE 2 MG/ML SYRINGE IV PRN (20:30)
[2019-12-22] MEDS: ESCITALOPRAM 10 MG TAB PO SCH (21:18)
[2019-12-22] MEDS: CEPHALEXIN 500 MG CAP PO SCH (21:18)
[2019-12-22] MEDS: HYDROcodone/APAP 5-325MG 1 EACH TAB PO PRN (22:19)
[2019-12-23] MEDS: MORPHINE SULFATE 2 MG/ML SYRINGE IV PRN ×3 (01:44→11:52)
[2019-12-23] MEDS: HYDROcodone/APAP 5-325MG 1 EACH TAB PO PRN (04:40)
[2019-12-23] MEDS: NICOTINE 14MG/24HR PATCH TRANSDERM SCH (08:35)
[2019-12-23] MEDS: CEPHALEXIN 500 MG CAP PO SCH ×2 (08:37→21:28)
[2019-12-23] MEDS: NON FORMULARY DRUG (Dextroamphetamine/Amphetamine [Adderall] 30 MG) PO SCH ×3 (10:09→21:37)
--- NOTE | 2019-12-23 12:11 | P.CONS ---
History of Present Illness - Reason for Consult Consult date: 12/23/19 fungating breast mass Requesting physician: Ev Lucio - Chief Complaint left breast pain - History of Present Illness Mrs. Garcia is a very pleasant 59-year-old female patient with a past medical history of depression and ADD, treated with medication. She has a left breast lesion that opened up in Aug 2019 and became painful in the last 2 weeks. To the best of her knowledge she remembers feeling a lump "inside" around May 2019. She denied any changes in her upper extremity mobility, breast mobility, arms were not sore. She was treating the open lesion with peroxide and denies any infections but, "it did not get any better". Currently she is experiencing "pressure" and "burning" at the site, in and around the lesion, there is moderate purulent drainage and foul odor to discharge. She states her last mammogram was a "long time ago", she does not remember her last pelvic/Pap smear, she has never had a colonoscopy. Denying any fevers, night sweats, difficulty swallowing, unintentional weight loss, she has been smoking half pack to 1 pack per day for greater than 20 years, denies pulmonary symptoms, no gastrointestinal symptoms, urinary symptoms, post-menopausal "for a long time", she has been asymptomatic from the same, she has some sternal discomfort, no other new or unusual musculoskeletal complaints. Review of Systems 14 point review of systems is negative except as stated in HPI Past Medical History Past Medical History: No Reported History Additional Past Medical History / Comment(s): migraines, back pain History of Any Multi-Drug Resistant Organisms: None Reported Past Surgical History: Bowel Resection, Hernia Repair Past Anesthesia/Blood Transfusion Reactions: No Reported Reaction Past Psychological History: ADD/ADHD, Depression Smoking Status: Current every day smoker Past Alcohol Use History: None Reported Past Drug Use History: None Reported - Past Family History Father Family Medical History: No Reported History Mother Family Medical History: No Reported History Medications and Allergies Home Medications Medication Instructions Recorded Confirmed Type Dextroamphetamine/Amphetamine 30 mg PO TID 06/22/15 12/22/19 History [Adderall] Hydrocodone/Acetaminophen [[place] 1 tab PO Q6H PRN 06/22/15 12/22/19 History 10-325] Escitalopram [Lexapro] 10 mg PO HS 12/22/19 12/22/19 History Allergies Allergy/AdvReac Type Severity Reaction Status Date / Time diazepam [From Valium] Allergy Unknown Verified 12/22/19 17:09 ketorolac [From Toradol] Allergy Unknown Verified 12/22/19 17:09 latex Allergy Rash/Hives Verified 12/22/19 17:09 tramadol [From Ultram] Allergy Unknown Verified 12/22/19 17:09 Physical Exam Vitals: Vital Signs Temp Pulse Pulse Resp BP BP Pulse Ox 12/23/19 05:32 98.6 F 68 16 103/56 94 L 12/22/19 21:00 98.8 F 83 16 120/66 91 L 12/22/19 18:25 98.7 F 81 17 156/82 97 12/22/19 17:40 99.4 F 78 18 141/84 95 12/22/19 14:29 97.7 F 89 18 146/91 97 Intake and Output 12/22/19 12/23/19 12/23/19 22:59 06:59 14:59 Intake Total 960 0 Balance 960 0 Intake: Oral 960 0 Other: Voiding Method Toilet # Voids 3 2 Weight 66.678 kg - Constitutional General appearance: average body habitus, cooperative, no acute distress - EENT Eyes: anicteric sclerae, EOMI ENT: hearing grossly normal, normal oropharynx - Neck ? right supraclavicular, deep, shotty adenopathy - Respiratory Respiratory: bilateral: CTA - Cardiovascular Rhythm: regular Heart sounds: normal: S1, S2 Abnormal Heart Sounds: no systolic murmur, no diastolic murmur, no rub, no S3 Gallop, no S4 Gallop, no click, no other leg Peripheral Edema: bilateral: None - Gastrointestinal General gastrointestinal: no absent bowel sounds, no decreased bowel sounds, no distended, no hepatomegaly, no hyperactive bowel sounds, normal bowel sounds, no organomegaly, no rigid, no scaphoid, soft, no splenomegaly, no tenderness, no umbilical hernia, no ventral hernia - Integumentary Left breast, fungating lesion approximately 3 cm across the central portion of the breast, total inclusion of the nipple and areolar area, purulent, foul drainage, tender to palpation all around the area, unable to appreciate any axillary adenopathy on deeper palpation, edges of lesion are rolled - Neurologic Neurologic: CNII-XII intact - Musculoskeletal Musculoskeletal: strength equal bilaterally - Psychiatric Psychiatric: A&O x's 3, appropriate affect, intact judgment & insight Results CBC & Chem 7: 12/22/19 15:36 12/22/19 15:36 Labs: Microbiology - Last 24 Hours (Table) 12/22/19 19:40 Gram Stain - Preliminary Breast - Left Wound Culture - Preliminary Comments: US breast report reviewed Assessment and Plan (1) Breast mass Narrative/Plan: Discussed with patient and daughter at the bedside high suspicion for malignancy based on the presentation. Reviewed results of ultrasound of the breast. Reviewed reason for staging imaging. CT chest abdomen pelvis and nuclear medicine bone scan ordered. Tumor markers ordered for baseline. Patient is currently pending breast biopsy, ER/NM, HER-2/jasbir. Would request enough tissue for next generation sequencing if, patient is metastatic. All the patient and her family's questions were answered to the best of my ability with the information that I have at this time. Current Visit: Yes Status: Acute Priority: High Code(s): N63.0 - UNSPECIFIED LUMP IN UNSPECIFIED BREAST SNOMED Code(s): 51836204
[2019-12-23] MEDS: IOPAMIDOL CONTRAST (ORAL USE) VIAL PO PRN ×2 (12:46→14:02)
[2019-12-23] MEDS: HYDROcodone/APAP 10-325MG 1 EACH TAB PO PRN ×2 (14:19→21:28)
--- NOTE | 2019-12-23 15:22 | CT ---
EXAMINATION TYPE: CT ChestAbdPelvis w con DATE OF EXAM: 12/23/2019 COMPARISON: July 06, 2017 HISTORY: Breast CA staging CONTRAST: CT scan of the chest, abdomen and pelvis is performed without Oral Contrast and with IV Contrast, pat ient injected with 100 mL of Isovue 300. CT Chest: LUNGS: Moderate upper lobe emphysematous change noted. Scattered nodules right lung total approximate ly 6 in number. The largest at the right lung base measures 1.3 cm. Metastatic disease is not exclude d. Correlate with PET/CT. No pleural effusion or CT evidence of interstitial lung disease. MEDIASTINUM: Thoracic aorta is of normal caliber. The heart is not enlarged. No evidence for media stinal mass or adenopathy. HILAR STRUCTURES: No evidence for mass. No hilar adenopathy is appreciated. OTHER: Marked deformity of the left breast with chronic in appearance and diffuse mass. Associated sk in thickening. Left axillary adenopathy 2.[address] ABDOMEN AND PELVIS FINDINGS: LIVER/GB: No calcified gallstones. At the dome of the liver there is a 2.5 cm hypoattenuating lesio n felt to reflect metastatic disease. Additional vague area of decreased attenuation within the centr al liver measuring 1.5 cm. No additional lesions identified. Biliary tree is of normal caliber. PANCREAS: No inflammation. No distinct mass. SPLEEN: No splenic enlargement. No lesion seen. ADRENALS: No nodule. No thickening. KIDNEYS/BLADDER: No hydronephrosis. No nephrolithiasis. Simple cyst midpole left kidney measuring a pproximately 1.2 cm. 2 mm nonobstructing calculus lower pole left kidney. BOWEL: Normal appendix. Normal bowel caliber. No inflammation. GENITAL ORGANS: No gross abnormality. LYMPH NODES: No greater than 1cm abdominal or pelvic lymph nodes are appreciated. AORTA: No significant abnormality. OSSEOUS STRUCTURES: Degenerative changes lumbar spine with grade 1 anterolisthesis L4 and L5. OTHER: Tiny anterior abdominal wall hernia. IMPRESSION: 1. Large left-sided infiltrating breast mass with deformity of the left breast and shrunken in appear ance as well as skin thickening. Left axillary adenopathy. 2. Multiple new right-sided pulmonary nodules are suspicious for metastatic disease. 3. Hepatic lesion is suspicious for metastatic disease.
--- NOTE | 2019-12-23 15:47 | NM ---
EXAMINATION TYPE: NM bone scan whole body DATE OF EXAM: 12/23/2019 COMPARISON: Correlation CT 12/23/2019 HISTORY: 59-year-old female rheumatoid arthritis of the fingers, initial staging breast cancer. TECHNIQUE: Delayed whole-body scanning was performed following the injection of 26.8 mCi Tc 99m MDP. Images acquired 3 hours post injection. FINDINGS: Scattered degenerative tracer activity at the shoulders, wrists, fingers, and knees. Focal abnormal tracer activity involving the left L5 posterior elements. No additional abnormal trace r activity to suggest osseous metastatic disease. IMPRESSION: 1. Focal intense abnormal activity left L5 posterior elements, equivocal between solitary osseous met astasis and degenerative activity. Further clinical correlation recommended. 2. There is other scattered degenerative activity at the shoulders, wrists, fingers, and knees.
[2019-12-23] MEDS: ESCITALOPRAM 10 MG TAB PO SCH (21:28)
[2019-12-23] MEDS ORDERED: diphenhydrAMINE 25 MG CAP PO STA (23:49)
[2019-12-24] MEDS: MORPHINE SULFATE 2 MG/ML SYRINGE IV PRN ×2 (00:50→11:01)
[2019-12-24] MEDS: NON FORMULARY DRUG (Dextroamphetamine/Amphetamine [Adderall] 30 MG) PO SCH ×2 (09:05→16:14)
[2019-12-24] MEDS: NICOTINE 14MG/24HR PATCH TRANSDERM SCH (09:08)
[2019-12-24] MEDS: CEPHALEXIN 500 MG CAP PO SCH (09:08)
[2019-12-24] MEDS ORDERED: diphenhydrAMINE 25 MG CAP PO STA (10:29)
--- NOTE | 2019-12-24 10:37 | P.PN ---
Subjective Progress Note Date: 12/24/19 Principal diagnosis: Left breast fungating mass In f/u today pt is tired, she denies any back pain other then when she is lifting, no incontinence of bladder or bowel, numbness, tingling or lower extremity weakness. Objective - Vital Signs Vital signs: Vital Signs Temp 98.4 F 12/24/19 05:00 Pulse 71 12/24/19 05:00 Resp 16 12/24/19 05:00 BP 117/67 12/24/19 05:00 Pulse Ox 91 L 12/24/19 05:00 Intake & Output 12/23/19 12/24/19 12/24/19 18:59 06:59 18:59 Intake Total 830 Balance 830 Intake: Oral 830 Other: Voiding Method Toilet # Voids 3 2 - Constitutional General appearance: Present: average body habitus, cooperative, no acute distress - EENT Eyes: Present: anicteric sclerae, EOMI ENT: Present: hearing grossly normal - Respiratory Details: respirations even and unlabored - Cardiovascular Details: skin warm and dry - Neurologic Neurologic: Present: CNII-XII intact - Musculoskeletal Musculoskeletal: Present: strength equal bilaterally - Psychiatric Psychiatric Comment(s): tearful during our conversation Psychiatric: Present: A&O x's 3, appropriate affect, intact judgment & insight - Labs CBC & Chem 7: 12/22/19 15:36 12/22/19 15:36 Labs: Abnormal Lab Results - Last 24 Hours (Table) 12/22/19 Range/Units 15:30 CA 27-29 59.6 H (0.0-38.5) U/mL Microbiology - Last 24 Hours (Table) 12/22/19 15:36 Blood Culture - Preliminary Blood No Growth after 24 hours 12/22/19 19:40 Gram Stain - Preliminary Breast - Left Wound Culture - Preliminary Presumptive Staph aureus - Imaging and Cardiology CT scan - abdomen: report reviewed CT scan - chest: report reviewed CT scan - pelvis: report reviewed NM bone scan report reviewed Assessment and Plan (1) Breast mass Narrative/Plan: Reviewed suspicious areas in lung, liver and L5. Explained that we need biopsy and will likely sched a PET for further evaluation of those suspicious areas. . Tumor markers ordered for baseline, Ca27.29 WNDL, Ca15.3 slightly elevated at 59.6. Patient is currently pending breast biopsy, ER/ME, HER-2/jasbir. IR consulted, requested core biopsy for HR testing and next generation sequencing as it is suspected pt is metastatic. All the patient questions were answered to the best of my ability with the information that I have at this time. I did not go into great details as pt was becoming very anxious and there was no family at the bedside. Will plan on family meeting once we have more info. Did order a 1 time dose of benadryl for pt anxiety-states allergy to valium/benzodiazepine Current Visit: Yes Status: Acute Priority: High Code(s): N63.0 - UNSPECIFIED LUMP IN UNSPECIFIED BREAST SNOMED Code(s): 74448690
--- NOTE | 2019-12-24 12:03 | P.GSHP ---
History of Present Illness H&P Date: 12/24/19 Chief Complaint: Left breast mass Saira is a 59-year-old white female seen in consultation for Dr. Burton who presented with a complaint of a left breast mass which she states isn't present for at least 6 months. The mass has grown larger and larger until she noted breakdown of the skin and a discharge. The patient did not seek medical attention previously for this problem. She does not report any prior mammograms. She does not complain of any fever or chills. She did have a breast ultrasound which showed diffuse echogenicity throughout the left breast with heterogeneous hypervascular mass involving the majority of the left breast. Additionally she had a CAT scan performed which revealed large left-sided infiltrating breast mass with deformity of the left breast and multiple right sided pulmonary nodules suspicious for metastatic disease. Additionally there is hepatic lesions suspicious for metastatic disease. A bone scan was performed which revealed focal intense abnormal activity left L5 posterior elements equivocal between solitary osseous metastases and degenerative activity. Degenerative activity was also noted at the shoulders was fingers and knees. Family history: Negative Hormonal history: Menarche: 9 one , breast-fed: Yes first live at 18 Menopause 54 Past surgical history: 1. Hernia repair with bowel obstruction Medical history: Negative Social history: Smoking: One pack per day for 20 years Alcohol: Negative Drugs: Negative - Constitutional Constitutional: Denies chills, Denies fever - EENT Eyes: denies blurred vision, denies pain Ears: deny: decreased hearing, tinnitus Ears, nose, mouth and throat: Reports headache - Breasts Breasts: bilateral: as per HPI - Cardiovascular Cardiovascular: Denies chest pain, Denies shortness of breath - Respiratory Comment: Smoker - Gastrointestinal Comment: Status post bowel resection for obstruction related to hernia in the past - Genitourinary (Female) Genitourinary: Denies dysuria, Denies hematuria - Menstruation Menstruation: Reports postmenopausal - Musculoskeletal Comment: Questionable arthritis - Integumentary Comment: Left breast changes related to most likely advanced malignancy - Neurological Neurological: Denies numbness, Denies weakness - Psychiatric Psychiatric: Reports depression, Denies anxiety - Endocrine Endocrine: Reports weight change - Hematologic/Lymphatic Comment: uses aspirin as needed - Allergic/Immunologic Allergic/Immunologic: Reports as per HPI Past Medical History Past Medical History: No Reported History Additional Past Medical History / Comment(s): migraines, back pain History of Any Multi-Drug Resistant Organisms: None Reported Past Surgical History: Bowel Resection, Hernia Repair Past Anesthesia/Blood Transfusion Reactions: No Reported Reaction Past Psychological History: ADD/ADHD, Depression Smoking Status: Current every day smoker Past Alcohol Use History: None Reported Past Drug Use History: None Reported - Past Family History Father Family Medical History: No Reported History Mother Family Medical History: No Reported History Medications and Allergies Home Medications Medication Instructions Recorded Confirmed Type Dextroamphetamine/Amphetamine 30 mg PO TID 06/22/15 12/22/19 History [Adderall] Hydrocodone/Acetaminophen [[place] 1 tab PO Q6H PRN 06/22/15 12/22/19 History 10-325] Escitalopram [Lexapro] 10 mg PO HS 12/22/19 12/22/19 History Allergies Allergy/AdvReac Type Severity Reaction Status Date / Time diazepam [From Valium] Allergy Unknown Verified 12/22/19 17:09 ketorolac [From Toradol] Allergy Unknown Verified 12/22/19 17:09 latex Allergy Rash/Hives Verified 12/22/19 17:09 tramadol [From Ultram] Allergy Unknown Verified 12/22/19 17:09 Surgical - Exam Vital Signs Temp Pulse Resp BP Pulse Ox 97.7 F 89 18 146/91 97 12/22/19 14:29 12/22/19 14:29 12/22/19 14:29 12/22/19 14:29 12/22/19 14:29 BMI 24.5 - General well developed, well nourished, no distress - Eyes normal ocular movement - ENT no hearing loss, no congestion - Neck no masses, trachea midline - Respiratory normal expansion, normal respiratory effort - Cardiovascular Rhythm: regular Heart Sounds: normal: S1, S2 - Abdomen Abdomen: soft, non tender, bowel sounds - Integumentary Left chest wall fungating mass at left breast site left breast is shrunken, this has open sore over the area of the mass - Neurologic no disoriented, no combative - Musculoskeletal Lying in bed - Psychiatric oriented to time, oriented to person, oriented to place, speech is normal, memory intact Breast examination: Inspection: Right breast no skin changes or nipple inversion Left breast large fungating mass with marked nipple inversion some purulent dis charge at the area of the mass Palpation: Right breast: Multi-positional exam no dominant masses or nodules of concern right axilla: No adenopathy of concern Left breast: The breast is largely replaced with a fungating mass with some purulent discharge on the surface this is free for the chest wall and does extend into the area of the axilla Left axilla: Left breast mass extending into the axilla Results Computed tomography scan, bone scan results reviewed Ultrasound of left breast reviewed - Labs 12/22/19 15:36 12/22/19 15:36 Abnormal Lab Results - Last 24 Hours (Table) 12/22/19 Range/Units 15:30 CA 27-29 59.6 H (0.0-38.5) U/mL Microbiology - Last 24 Hours (Table) 12/22/19 15:36 Blood Culture - Preliminary Blood No Growth after 24 hours 12/22/19 19:40 Gram Stain - Preliminary Breast - Left Wound Culture - Preliminary Presumptive Staph aureus Assessment and Plan Assessment: Impression: 1. Fungating mass left breast most likely advanced malignancy 2. Probable metastatic disease to the lungs and questionable liver 3. Depression 4. Nicotine dependence 5. History of headaches Plan: 1. Ultrasound-guided core biopsy left breast Mass. 2. Medical oncology consult 3. At this time surgical intervention would be for a simple mastectomy for local control we will discuss this with the patient and medical oncology Encounter: 30 minutes, greater than 50% of time in planning and counseling
--- NOTE | 2019-12-24 13:15 | P.DS ---
Providers Date of admission: 12/24/19 08:54 Expected date of discharge: 12/24/19 Attending physician: Saba Saunders MD Consults: 12/22/19 16:33 Consult Physician Routine Consulting Provider: Beryl Silveira Consult Reason/Comments: new breast mass Do you want consulting provider notified?: Yes 12/22/19 17:12 Consult Physician Routine Consulting Provider: Bryn Peguero Consult Reason/Comments: Breast mass likely cancer Do you want consulting provider notified?: Yes Primary care physician: [facility] Course: 59-year-old female with PMH of chronic headaches and rheumatoid arthritis presents the ED for left breast mass. Her daughter is at bedside. Patient states that she noticed a mass under her left breast during the summer of this year. The mass eventually grew and patient noticed breakdown of the surrounding skin along with discharge has been ongoing since September. Patient did not seek medical attention for this problem. She denies any headache, lower extremity edema, nausea or vomiting, fever or chills, cough, chest pain, shortness of breath, palpitations, changes in urination or bowel habits. No changes in appetite or weight. She denies any dizziness, numbness/weakness/tingling of the extremities. In the ED, her vital signs were stable with slightly elevated BP of 146/91. CBC and CMP was within normal limits. Breast ultrasound shows diffuse echogenicity throughout the left breast with heterogenous hypervascular mass involving the majority of the left breast. Patient is admitted for left breast cellulitis and for breast surgery and oncology evaluation. Breast surgery was consulted for possible biopsy and recommended IR consultation. IR Consultation was pending at the time of this note. Patient initially received Zosyn for concerns for cellulitis but was transitioned to Keflex. Otherwise, her home medications were resumed. Patient was seen and examined. Patient appears tearful after seeing the breast surgeon regarding possible masectomy. She denies any chest pain, shortness of breath or palpitations. No nausea or vomiting. No fever or chills. General: [non toxic], [no distress], [appears at stated age] Derm: [warm], [dry] Head: [atraumatic], [normocephalic], [symmetric] Eyes: [EOMI], [no lid lag], [anicteric sclera] Mouth: [no lip lesion], [mucus membranes moist] Cardiovascular: [S1S2 reg], [no murmur], [positive posterior tibial pulse bilateral], [large 10 cm fungating cavitary breast mass with serosanguineous discharge and underlying erythema in the upper lateral portion of the left breast along with palpable lymph nodes] Lungs: [CTA bilateral], [no rhonchi, no rales] , [no accessory muscle use] Abdominal: [soft], [ nontender to palpation], [no guarding], [no appreciable organomegaly] Ext: [no gross muscle atrophy], [no edema], [no contractures] Neuro: [ CN II-XI grossly intact], [no focal neuro deficits] Psych: [Alert], [oriented], [appropriate affect] Left-sided breast mass, likely cancer with overlying cellulitis Chronic headaches Depression and ADHD As seen on breast ultrasound. No leukocytosis or fever. Received 1 dose of Zosyn in ED. bone scan shows focal intensity in the L5 metastasis versus degenerative activity. CT chest abdomen and pelvis show large left-sided breast mass, right-sided pulmonary nodules, hepatic lesion suspicious for metastatic disease. Plans: Consult breast surgery. She will need biopsy to hopefully be done by IR. Continue Keflex for possible overlying cellulitis. Follow oncology recommendations. Plans: Advised against narcotic medication for chronic treatment of headaches. Tylenol, [place] or morphine as needed. Plans: Resume Adderall. Resume Lexapro. [Patient to be discharged home after her biopsy to follow-up with oncology in the outpatient setting. Patient is advised of the importance of follow-up of this biopsy and for continuation of care as she most likely has breast cancer.] Pertinent Studies: Breast ultrasound, CT chest abdomen and pelvis, bone scan Patient Condition at Discharge: Stable Plan - Discharge Summary New Discharge Prescriptions: New Cephalexin [Keflex] 500 mg PO BID #10 cap Continue Hydrocodone/Acetaminophen [[place] 10-325] 1 tab PO Q6H PRN PRN Reason: Pain Dextroamphetamine/Amphetamine [Adderall] 30 mg PO TID Escitalopram [Lexapro] 10 mg PO HS Discharge Medication List Dextroamphetamine/Amphetamine [Adderall] 30 mg PO TID 06/22/15 [History] Hydrocodone/Acetaminophen [[place] 10-325] 1 tab PO Q6H PRN 06/22/15 [History] Escitalopram [Lexapro] 10 mg PO HS 12/22/19 [History] Cephalexin [Keflex] 500 mg PO BID #10 cap 12/24/19 [Rx] Follow up Appointment(s)/Referral(s): Bob Alejo MD [Primary Care Provider] - 1-2 days Bryn Peguero MD [STAFF PHYSICIAN] - 1 Week Beryl Silveira MD [STAFF PHYSICIAN] - 1 Week Activity/Diet/Wound Care/Special Instructions: Follow-up with PCP within 3 days of discharge. Follow up with oncology within 1 week of discharge. Follow-up with breast surgery within 1 week of discharge. Discharge Disposition: HOME SELF-CARE
[2019-12-24 14:53] VITALS: TEMP 98.6
[2019-12-24 15:37] VITALS: RESP 18
[2019-12-24] MEDS ORDERED: HYDROmorphone 0.5 MG/0.5 ML SYRINGE IVP STA (15:46)
[2019-12-24 18:43] VITALS: BP 124/75; PULSE 76
--- NOTE | 2019-12-25 08:58 | USB ---
ULTRASOUND GUIDED FNA THYROID BIOPSY: CLINICAL HISTORY: BREAST MASS FINDINGS: The procedure was explained to the patient. The risks, complications, benefits and alternatives were discussed and any questions were answered. Informed consent was obtained. Patient was placed supine on the ultrasound table and prepped and draped in the usual sterile fashion. Utilizing a 18 gauge needle, four passes were made into the left large breast mass as requested. The patient tolerated additional 18-gauge core biopsy sample of a spiculated lesion in the left axilla. Surgical clip placed post procedure. Patient was stable throughout the procedure. Pathology is pending. All elements of maximal barrier technique were utilized. IMPRESSION: 1. Successful ultrasound guided breast core biopsy as discussed above with pathology pending. 2. If there is concern for inflammatory breast cancer considered punch biopsy. Pathology Results: Malignant A. LEFT BREAST LESION AT TWELVE O'CLOCK POSITION, NEEDLE CORE BIOPSY: Grade 3 infiltrating carcinoma involving sclerotic tissue. B. LEFT AXILLARY TAIL AT TWO O'CLOCK POSITION, BIOPSY: Poorly differentiated (Grade 3) adenocarcinoma involving fibrous and adipose tissue. Normal or residual breast tissue or lymph node tissue not identified. See note. Recommendation Surgical consult of the left breast. Definitive surgical care/management. MTDD
== END 2019-12-24 18:30 | disposition home or self-care (01) ==
LOC: EC 14:24 → 5NMEDONC 17:11 → INTOOBSV 12-24 08:54 → OBSVTOIN 12-24 08:54 → UNDODISIN 12-24 18:30
PROVIDERS: ADMIT Internal Medicine; ATTEND Internal Medicine
DX: C50.912 Malignant neoplasm of unspecified site of left female breast (principal); C50.612 Malignant neoplasm of axillary tail of left female breast; G43.909 Migraine, unspecified, not intractable, without status migrainosus; F32.9 Major depressive disorder, single episode, unspecified; F90.9 Attention-deficit hyperactivity disorder, unspecified type; G89.29 Other chronic pain; M06.9 Rheumatoid arthritis, unspecified; R91.8 Other nonspecific abnormal finding of lung field; K76.9 Liver disease, unspecified; R94.8 Abnormal results of function studies of other organs and systems; M19.012 Primary osteoarthritis, left shoulder; M19.011 Primary osteoarthritis, right shoulder; M19.032 Primary osteoarthritis, left wrist; M19.031 Primary osteoarthritis, right wrist; M19.049 Primary osteoarthritis, unspecified hand; M17.0 Bilateral primary osteoarthritis of knee; F17.210 Nicotine dependence, cigarettes, uncomplicated; Z17.0 Estrogen receptor positive status [ER+]; Z79.899 Other long term (current) drug therapy; Z79.891 Long term (current) use of opiate analgesic; Z88.8 Allergy status to other drugs, medicaments and biological substances; Z88.6 Allergy status to analgesic agent; Z91.040 Latex allergy status; Z88.5 Allergy status to narcotic agent; Z90.49 Acquired absence of other specified parts of digestive tract; Z98.890 Other specified postprocedural states; Z78.0 Asymptomatic menopausal state
CPT/HCPCS: 96376 ×3; 96366 ×2; 96361; 96365; 96375; 99284; 36415; 88305; 80053; 86300 ×2; 83605; 85025; 88342; 87040; 88341; 87070; 87205; 87077; 87186; 19083; 19084; 76641; 71260; 74177; 78306; G0378 ×3; A4648; J2543; J1200; J2270 ×3; J1170; Q9967

== ENCOUNTER → 2020-01-03 | Outpatient (CLI) | payer OTHER ==
[2020-01-03 16:08] VITALS: BP 146/87; PULSE 98; RESP 18; TEMP 98
--- NOTE | 2020-01-03 17:13 | P.PN ---
Subjective Progress Note Date: 01/03/20 Principal diagnosis: left breast cancer Saira is a 59-year-old white female status post ultrasound-guided core biopsy of the left breast on . Pathology revealed it the left breast 12:00 region grade 3 infiltrating carcinoma and of the left axillary tail at 2:00 poorly differentiated grade 3 adenocarcinoma. The patient tolerated the biopsy in stable condition. The tumor was ER/TX positive and HER-2 negative and secondary to it being grade 3 is being sent for fresh evaluation. The patient and her daughter present today asking if there is aware that we can help with local wound control. The patient is having a PET scan performed tomorrow. Have had a discussion with Dr. Peguero from medical oncology and if the patient's tumor is HER-2 positive she will have neoadjuvant chemotherapy and delay a mastectomy. This returned negative she may be a candidate for mastectomy as well as hormonal therapy. We have also discussed the possibility of radiation therapy to the area. Patient had a CAT scan performed which revealed some indeterminate pulmonary nodules, liver lesion, and questionable L5 metastasis versus degenerative processes. Objective - Vital Signs Vital signs: Vital Signs Temp 98.0 F 01/03/20 16:05 Pulse 98 01/03/20 16:05 Resp 18 01/03/20 16:05 BP 146/87 01/03/20 16:05 Pulse Ox 94 L 01/03/20 16:05 Intake & Output 01/02/20 01/03/20 01/03/20 18:59 06:59 18:59 Weight 67.132 kg - Exam BMI 27.1 - Constitutional General appearance: Present: average body habitus - EENT Eyes: Present: EOMI ENT: Present: hearing grossly normal - Respiratory Respiratory: bilateral: CTA - Cardiovascular Rhythm: regular Heart sounds: normal: S1, S2 - Musculoskeletal Musculoskeletal: Present: gait normal - Psychiatric Psychiatric: Present: appropriate affect - Additional findings Additional findings: Left chest wall fungating breast tumor is not fixed to chest wall at this time Assessment and Plan Assessment: Impression: 1. Stage IV left breast cancer 2. Patient being started on a limited extubated day after discussion with Dr. Peguero 3. Awaiting HER-2 FISH study 4. Patient is not a candidate for surgical debridement of the tumor have discussed possibility of total mastectomy Plan: 1. Await results of PET scan 2. Await results of HER-2 FISH study 3. Discussion with Dr. Peguero if she is HER-2 positive neoadjuvant chemotherapy if she is HER-2 negative consider mastectomy for local control and hormonal therapy encounter 60 minutes, > 50% of time spent in planning and counselling CC: Dr. Peguero Time with Patient: Greater than 30
== END | disposition home or self-care (01) ==
LOC: WWCWWP 15:57
PROVIDERS: ATTEND Surgery
DX: Z53.9 Procedure and treatment not carried out, unspecified reason (principal)

== ENCOUNTER → 2020-01-04 | Outpatient (CLI) | payer OTHER ==
--- NOTE | 2020-01-05 13:55 | PE ---
EXAMINATION TYPE: PET CT fusion skull to thigh DATE OF EXAM: 01/04/2020 COMPARISON: CT chest abdomen pelvis 12/23/2019 Prior PET/CT: None HISTORY: Breast cancer TECHNIQUE: Following the intravenous administration of 11.61 mCi of F-18 FDG, whole body images are performed from the skull base to the midthigh. Images are reviewed on the computer in the coronal, a xial, and sagittal planes. Reconstructed rotating images are created on independent workstation and reviewed on the computer. A localization and attenuation correction CT is performed in conjunction with the PET scan. DLP: 336.62 mGycm SCAN: Initial Scan Blood glucose: 102 mg/dL Average Mediastinum SUV: 1.39 Average Liver SUV: 1.76 FINDINGS: NECK: No abnormal uptake within soft tissues. Please see osseous structures below. THORAX: There is faint uptake of radiotracer within the left axillary region. Early metastatic lesion s within the left axillary region should be considered. This has an SUV value of 2.83, PET image 78. Adjacent subcentimeter lymph node has an SUV value of 2.05. There is marked increased radiotracer within the left breast compatible with the patient's reported n eoplasm. A posterior lateral rounded density which may be contiguous with a mass or may be an enlarge d lymph node has an SUV value of 7.38. There is intense activity within the subcarinal region. This has an SUV value of 4.85 suspicious for metastatic lesion. PET image 87 A second lesion appears to be just inferior to the first with a SUV v alue of 3.79. Image 92. A subtle right peribronchial area of increased signal may be present and coul d be a right peribronchial lymph node with an SUV value 2.59. Suspicious internal mamillary lymphaden opathy is not identified. Suspicious left hilar adenopathy is not identified. ABDOMEN: There is an intense focus of radiotracer accumulation within the superior right lobe liver a djacent to the diaphragm with an SUV value of 6.63 compatible with a metastatic lesion. PET image 112 PELVIS: Suspicious soft tissue uptake is not identified within the pelvis. OSSEOUS STRUCTURES: There is a focus of radiotracer accumulation within the C7 vertebral body suspici ous for metastatic disease. There is intense activity within the left L5-S1 facet region. SUV value i s 3.34. Metastatic disease should be considered. PET image [address]: Note is made of a periumbilical hernia. A few diverticular changes are within the lo wer colon. COMPARISON: Comparison CT examination correlates with the localization CT findings. IMPRESSION: 1. Large mass encompassing the left breast compatible with neoplasm. An adjacent nodule could be a ly mph node or extension of a mass into the axillary tail. 2. Couple of punctate areas of mild increased uptake are suspicious for early small left axillary lym phadenopathy. 3. Abnormal radiotracer uptake within the C7 vertebral body and in the region of the left L5-S1 facet suspicious for osseous metastases. 4. Subtle hypodense nodule with intense radiotracer within the superior right lobe liver can be alejandra tible with a solitary hepatic metastasis. 5. There is abnormal uptake within the subcarinal region suspicious for metastatic disease. Some subt le right peribronchial uptake is not excluded.
== END | disposition home or self-care (01) ==
LOC: RADPETMAIN 08:57
PROVIDERS: ATTEND Internal Medicine Hematology & Oncology
DX: C50.812 Malignant neoplasm of overlapping sites of left female breast (principal); C50.412 Malignant neoplasm of upper-outer quadrant of left female breast; R93.89 Abnormal findings on diagnostic imaging of other specified body structures
CPT/HCPCS: 78815; A9552